=== PATIENT | female | born 1955 | race Caucasian/White ===

== ENCOUNTER 2017-07-05 23:13 | Emergency (ER) | payer OTHER ==
[~2017-07-05] VITALS: Ht 162.6 cm; Wt 113.6 kg
[~2017-07-05 23:13] MED LIST: AMLO2.5T29 PO; ASPI81TA39 PO; GEMF600T3 PO; GLIP10TA9 PO; IBUP-2076 PO; METF10004 PO
[2017-07-05 23:53] LABS: GLUCOSE,POINT OF CARE 217 MG/DL (70-110)
[2017-07-06] MEDS ORDERED: KETOROLAC TROMETHAMINE 30 MG/ML VIAL IM ONE (02:15)
[2017-07-06 02:49] VITALS: BP 123/77
== END 2017-07-06 02:50 | disposition home or self-care (01) ==
LOC: EMS 23:14
DX: G62.9 Polyneuropathy, unspecified (principal); E78.00 Pure hypercholesterolemia, unspecified; I10 Essential (primary) hypertension; E11.9 Type 2 diabetes mellitus without complications; Z79.82 Long term (current) use of aspirin; Z79.84 Long term (current) use of oral hypoglycemic drugs; Z79.899 Other long term (current) drug therapy
CPT/HCPCS: 73610; 82962; 96372; 99284; J1885

== ENCOUNTER 2018-03-08 09:37 | Emergency (ER) | payer OTHER ==
[~2018-03-08] VITALS: Ht 162.6 cm; Wt 145.4 kg
[~2018-03-08 09:37] MED LIST changes: +BENZ-51 PO; -GEMF600T3 PO; +GEMF600T5 PO; -IBUP-2076 PO; +METF-446 PO; -METF10004 PO; +OMEP20 PO; +PRED15SO12 PO
[2018-03-08 10:49] LABS: GLUCOSE,POINT OF CARE 381 MG/DL (70-110)
[2018-03-08 10:57] LABS: APPEARANCE,URINE CLEAR (CLEAR); BILIRUBIN,URINE NEGATIVE (NEGATIVE); GLUCOSE, URINE (UA) >=1000 mg/dL (NEGATIVE); KETONES,URINE NEGATIVE (NEGATIVE); LEUKOCYTE ESTERASE ,URINE NEGATIVE (NEGATIVE); NITRATE,URINE NEGATIVE (NEGATIVE); OCCULT BLOOD,URINE NEGATIVE (NEGATIVE); PROTEIN,URINE SEE CONFIRM (NEGATIVE); UROBILINOGEN,URINE 0.2 mg/dL (<=1.0)
[2018-03-08 11:08] LABS: BASOPHILS % (AUTO) 0.5 % (0.0-2.0); EOSINOPHILS % (AUTO) 1.9 % (1.0-6.0); HEMATOCRIT 39.9 % (36-46); HEMOGLOBIN 12.8 g/dL (12.0-16.0); LYMPHOCYTES # (AUTO) 2.4 K/uL (1.0-4.8); LYMPHOCYTES % (AUTO) 25.6 % (22.0-44.0); MEAN CORPUSCULAR HEMOGLOBIN 29.9 pg (26.0-34.0); MEAN CORPUSCULAR HGB CONC 32.1 G/dL (31.0-37.0); MEAN CORPUSCULAR VOLUME 93 fL (80-100); MONOCYTES # (AUTO) 0.8 K/uL (0.1-1.0); MONOCYTES % (AUTO) 8.4 % (2.0-9.0); NEUTROPHILS # (AUTO) 5.9 K/uL (1.8-7.7); NEUTROPHILS % (AUTO) 63.6 % (40.0-70.0); PLATELET COUNT (AUTO) 269 K/uL (150-450); RED BLOOD CELL COUNT(AUTO) 4.28 MIL/uL (4.00-5.20); RED CELL DISTRIBUTION WIDTH 19.9 % (11.5-14.5)
[2018-03-08 11:21] LABS: ALBUMIN 3.1 g/dL (3.4-5.0); BILIRUBIN,TOTAL 0.3 mg/dL (0.1-1.0); CALCIUM, TOTAL 8.8 mg/dL (8.8-10.5); POTASSIUM 5.2 mmol/L (3.5-5.1); TOTAL PROTEIN, SERUM 7.6 g/dL (6.4-8.2)
[2018-03-08] MEDS ORDERED: IOVERSOL 350 MG/ML 150 ML VIAL ONE (11:21)
[2018-03-08] MEDS ORDERED: SODIUM CHLORIDE 0.9% 100 ML ONE (11:21)
[2018-03-08 11:27] LABS: SULFOSALICYLIC ACID,URINE 2+ (Negative)
[2018-03-08 11:29] LABS: BACTERIA,URINE Rare /HPF (None Seen); RBC,URINE None Seen /HPF (0-2); SQUAMOUS EPITHELIAL CELL,UR Few /LPF (None Seen); WBC,URINE 0-2 /HPF (0-5)
[2018-03-08] MEDS ORDERED: SODIUM CHLORIDE 0.9% 1,000 ML IV ONE (11:30)
[2018-03-08] MEDS ORDERED: INSULIN REGULAR, HUMAN 100 UNITS/ML IVP ONE (11:30)
[2018-03-08 13:40] VITALS: BP 138/99
[2018-03-08 17:40] LABS: GLUCOSE,POINT OF CARE 189 MG/DL (70-110)
== END 2018-03-08 14:01 | disposition home or self-care (01) ==
LOC: EMS 09:38
DX: R60.0 Localized edema (principal); R10.9 Unspecified abdominal pain; I10 Essential (primary) hypertension; E11.9 Type 2 diabetes mellitus without complications; E78.00 Pure hypercholesterolemia, unspecified; J44.9 Chronic obstructive pulmonary disease, unspecified; Z79.82 Long term (current) use of aspirin; Z79.899 Other long term (current) drug therapy
CPT/HCPCS: 36415; 74176; 80053; 81001; 82962; 85025; 93971; 96361; 96374; 99284; J1815; J7030; J7050; Q9967; 51701; 82948

== ENCOUNTER 2018-08-28 18:35 | Inpatient (IN) | payer OTHER ==
[~2018-08-28] VITALS: Ht 162.6 cm; Wt 136.8 kg
[~2018-08-28 18:35] MED LIST changes: +ALBU8HFA IH; +CIP250 PO; +DOXY100C PO; +INSLAN SQ; +PARI1CAP11 PO; -PRED15SO12 PO; +PRED20 PO; +QUET25TA PO; +SODI650T PO
[2018-08-28 18:59] LABS: GLUCOSE,POINT OF CARE 283 MG/DL (70-110)
[2018-08-28] MEDS ORDERED: ALBUTEROL SULFATE 5 MG/ML 20 ML NEB SOLN [BULK] NEB ONE (19:00)
[2018-08-28] MEDS ORDERED: IPRATROPIUM BROMIDE 0.5 MG/2.5 ML NEB SOLUTION NEB ONE (19:00)
[2018-08-28] MEDS ORDERED: MethylPREDNISolone SOD SUCC 125 MG/2 ML VIAL IVP ONE (19:00)
[2018-08-28 19:54] LABS: BASOPHILS % (AUTO) 0.3 % (0.0-2.0); EOSINOPHILS % (AUTO) 1.5 % (1.0-6.0); HEMATOCRIT 38.3 % (36-46); LYMPHOCYTES # (AUTO) 2.4 K/uL (1.0-4.8); LYMPHOCYTES % (AUTO) 23.6 % (22.0-44.0); MEAN CORPUSCULAR HEMOGLOBIN 28.2 pg (26.0-34.0); MEAN CORPUSCULAR HGB CONC 31.4 G/dL (31.0-37.0); MEAN CORPUSCULAR VOLUME 90 fL (80-100); MONOCYTES # (AUTO) 0.9 K/uL (0.1-1.0); MONOCYTES % (AUTO) 8.4 % (2.0-9.0); NEUTROPHILS # (AUTO) 6.8 K/uL (1.8-7.7); NEUTROPHILS % (AUTO) 66.2 % (40.0-70.0); PLATELET COUNT (AUTO) 168 K/uL (150-450); RED BLOOD CELL COUNT(AUTO) 4.27 MIL/uL (4.00-5.20); RED CELL DISTRIBUTION WIDTH 19.2 % (11.5-14.5)
[2018-08-28 20:03] LABS: CREATININE 1.21 mg/dL (0.60-1.30); POTASSIUM 4.1 mmol/L (3.5-5.1)
[2018-08-28 20:09] LABS: ALBUMIN 2.6 g/dL (3.4-5.0); BILIRUBIN,TOTAL 0.6 mg/dL (0.1-1.0); TOTAL PROTEIN, SERUM 6.8 g/dL (6.4-8.2)
[2018-08-28] MEDS ORDERED: FUROSEMIDE 40 MG/4 ML VIAL IVP ONE (20:30)
[2018-08-28] MEDS ORDERED: ONDANSETRON HCL 4 MG/2 ML VIAL IVP PRN ×2 (20:45→22:00)
[2018-08-28] MEDS ORDERED: ACETAMINOPHEN 325 MG TABLET PO PRN ×2 (20:45→22:00)
[2018-08-28 20:54] LABS: SITE, BLOOD GAS RT RADIAL; SOURCE, BLOOD GAS ARTERIAL
[2018-08-28 20:55] LABS: ABG BASE EXCESS 0.1 mmol/L (-2.0-3.0); ABG PCO2 52 mmHg (35-45); ABG TOTAL HEMOGLOBIN 12.8 G/dL (12.0-18.0); TEMPERATURE, FAHRENHEIT, BG 98.6 FAHREN (96.0-98.6)
[2018-08-28 20:56] LABS: ABG CARBOXYHEMOGLOBIN 1.4 % (0.0-1.5); ABG OXYGEN CONTENT 16.2 mL/dL (15.0-23.0); O2 DEVICE,BLOOD GAS NON REBREATHER (ROOM AIR)
[2018-08-28] MEDS ORDERED: HYDROCODONE/ACETAMINOPHEN 5-325 MG TABLET PO PRN (22:00)
[2018-08-28] MEDS ORDERED: ALBUTEROL SULFATE 2.5 MG/0.5 ML NEB SOLUTION NEB PRN (22:00)
[2018-08-28] MEDS ORDERED: MAGNESIUM HYDROXIDE SUSPENSION 30 ML UDCUP PO PRN (22:00)
[2018-08-28] MEDS ORDERED: IPRATROPIUM BROMIDE 0.5 MG/2.5 ML NEB SOLUTION NEB PRN (22:00)
[2018-08-28] MEDS ORDERED: BISACODYL 10 MG RECTAL RECTAL SUPPOSITORY PR PRN (22:00)
[2018-08-28] MEDS ORDERED: BENZONATATE 100 MG CAPSULE PO PRN (22:00)
[2018-08-28] MEDS ORDERED: MORPHINE SULFATE 2 MG/ML SYRINGE IVP PRN (22:00)
[2018-08-28] MEDS ORDERED: ZOLPIDEM TARTRATE 5 MG TABLET PO PRN (22:00)
[2018-08-28] MEDS: AZITHROMYCIN 500 MG/NS 250 ML IV SCH (22:42)
[2018-08-28] MEDS ORDERED: IPRATROPIUM BROMIDE 0.5 MG/2.5 ML NEB SOLUTION NEB SCH (23:00)
[2018-08-28] MEDS ORDERED: ALBUTEROL SULFATE 2.5 MG/0.5 ML NEB SOLUTION NEB SCH (23:00)
[2018-08-29] VITALS (7 sets, daily range): BP systolic 100–133; BP diastolic 59–86
[2018-08-29] MEDS: CefTRIAXone 1 GM/DEXTROSE 50 ML IV SCH ×2 (00:03→23:38)
[2018-08-29] MEDS: MethylPREDNISolone SOD SUCC 125 MG/2 ML VIAL IVP SCH ×5 (00:14→23:40)
[2018-08-29] MEDS: HEPARIN SODIUM,PORCINE 5,000 UNITS/ML VIAL SQ SCH ×4 (00:14→23:40)
[2018-08-29 02:04] LABS: GLUCOSE,POINT OF CARE 481 MG/DL (70-110)
[2018-08-29] MEDS: IPRATROPIUM BROMIDE 0.5 MG/2.5 ML NEB SOLUTION NEB SCH ×4 (02:18→19:39)
[2018-08-29] MEDS: ALBUTEROL SULFATE 2.5 MG/0.5 ML NEB SOLUTION NEB SCH ×4 (02:19→19:39)
[2018-08-29 06:45] LABS: BASOPHILS % (AUTO) 0.2 % (0.0-2.0); EOSINOPHILS % (AUTO) 0 % (1.0-6.0); HEMATOCRIT 38.9 % (36-46); LYMPHOCYTES # (AUTO) 0.4 K/uL (1.0-4.8); LYMPHOCYTES % (AUTO) 4.3 % (22.0-44.0); MEAN CORPUSCULAR HEMOGLOBIN 28.4 pg (26.0-34.0); MEAN CORPUSCULAR VOLUME 92 fL (80-100); MONOCYTES # (AUTO) 0.2 K/uL (0.1-1.0); MONOCYTES % (AUTO) 1.6 % (2.0-9.0); NEUTROPHILS # (AUTO) 8.9 K/uL (1.8-7.7); PLATELET COUNT (AUTO) 171 K/uL (150-450); RED BLOOD CELL COUNT(AUTO) 4.24 MIL/uL (4.00-5.20); RED CELL DISTRIBUTION WIDTH 19.7 % (11.5-14.5)
[2018-08-29 06:46] LABS: NEUTROPHILS % (AUTO) 93.9 % (40.0-70.0)
[2018-08-29 07:01] LABS: CALCIUM, TOTAL 8.8 mg/dL (8.8-10.5); CREATININE 1.58 mg/dL (0.60-1.30); POTASSIUM 5.1 mmol/L (3.5-5.1)
[2018-08-29] MEDS: GlipiZIDE 10 MG TABLET PO SCH ×2 (07:13→17:37)
[2018-08-29] MEDS: GEMFIBROZIL 600 MG TABLET PO SCH ×2 (07:13→17:37)
[2018-08-29] MEDS ORDERED: INSULIN LISPRO 100 UNITS/ML SQ ONE ×4 (07:15→20:35)
[2018-08-29] MEDS ORDERED: DEXTROSE 50%-WATER 25 GM/50 ML SYRINGE IVP PRN (07:15)
[2018-08-29] MEDS: INSULIN LISPRO 100 UNITS/ML SQ PRN ×4 (07:41→20:54)
[2018-08-29] MEDS: GuaiFENesin SR 600 MG ER TABLET PO SCH ×2 (08:41→20:49)
[2018-08-29] MEDS: MetFORMIN HCL 500 MG TABLET PO SCH ×2 (08:41→18:04)
[2018-08-29] MEDS: PANTOPRAZOLE SODIUM 40 MG DR TABLET PO SCH (08:41)
[2018-08-29] MEDS: ASPIRIN 81 MG CHEWABLE TABLET PO SCH (08:41)
[2018-08-29] MEDS: BENZONATATE 100 MG CAPSULE PO SCH ×3 (08:42→20:49)
[2018-08-29] MEDS: AmLODIPine BESYLATE 2.5 MG TABLET PO SCH (08:42)
[2018-08-29] MEDS: DOCUSATE SODIUM 100 MG CAPSULE PO SCH ×2 (08:42→20:57)
[2018-08-29] MEDS ORDERED: INSULIN GLARGINE,HUM.REC.ANLOG 100 UNITS/ML SQ SCH ×3 (09:00→21:00)
[2018-08-29] MEDS: BUDESONIDE 0.5 MG/2 ML NEB SOLUTION NEB SCH ×2 (10:54→19:39)
[2018-08-29 20:30] LABS: GLUCOMETER DEV NAME(LOC) 5N.1; GLUCOSE,POINT OF CARE 537 MG/DL (70-110)
[2018-08-29 20:30] LABS: GLUCOMETER DEV NAME(LOC) 5N.1; GLUCOSE,POINT OF CARE 523 MG/DL (70-110)
[2018-08-29] MEDS ORDERED: SODIUM CHLORIDE 0.9% 500 ML IV ONE (21:35)
[2018-08-29] MEDS: AZITHROMYCIN 500 MG/NS 250 ML IV SCH (21:45)
[2018-08-29] MEDS: QUEtiapine FUMARATE 25 MG TABLET PO SCH (21:54)
[2018-08-30] MEDS: IPRATROPIUM BROMIDE 0.5 MG/2.5 ML NEB SOLUTION NEB SCH ×4 (02:00→20:51)
[2018-08-30] MEDS: ALBUTEROL SULFATE 2.5 MG/0.5 ML NEB SOLUTION NEB SCH ×4 (02:00→20:51)
[2018-08-30 02:34] LABS: GLUCOMETER DEV NAME(LOC) 5N.2; GLUCOSE,POINT OF CARE > 600 MG/DL (70-110)
[2018-08-30 02:34] LABS: GLUCOMETER DEV NAME(LOC) 5N.2; GLUCOSE,POINT OF CARE 506 MG/DL (70-110)
[2018-08-30 04:56] VITALS: BP 125/69
[2018-08-30] MEDS ORDERED: INSULIN LISPRO 100 UNITS/ML SQ ONE ×3 (05:45→12:00)
[2018-08-30] MEDS: INSULIN LISPRO 100 UNITS/ML SQ PRN ×4 (06:06→21:32)
[2018-08-30] MEDS: GEMFIBROZIL 600 MG TABLET PO SCH ×2 (06:06→16:55)
[2018-08-30] MEDS: GlipiZIDE 10 MG TABLET PO SCH ×2 (06:06→16:55)
[2018-08-30] MEDS: MethylPREDNISolone SOD SUCC 125 MG/2 ML VIAL IVP SCH ×4 (06:07→23:35)
[2018-08-30 06:36] LABS: BASOPHILS % (AUTO) 0.2 % (0.0-2.0); EOSINOPHILS % (AUTO) 0 % (1.0-6.0); HEMATOCRIT 37.8 % (36-46); HEMOGLOBIN 11.6 g/dL (12.0-16.0); LYMPHOCYTES # (AUTO) 0.8 K/uL (1.0-4.8); LYMPHOCYTES % (AUTO) 5.6 % (22.0-44.0); MEAN CORPUSCULAR HEMOGLOBIN 27.7 pg (26.0-34.0); MEAN CORPUSCULAR HGB CONC 30.6 G/dL (31.0-37.0); MEAN CORPUSCULAR VOLUME 90 fL (80-100); MONOCYTES # (AUTO) 0.6 K/uL (0.1-1.0); MONOCYTES % (AUTO) 3.9 % (2.0-9.0); NEUTROPHILS # (AUTO) 13.4 K/uL (1.8-7.7); PLATELET COUNT (AUTO) 217 K/uL (150-450); RED BLOOD CELL COUNT(AUTO) 4.18 MIL/uL (4.00-5.20); RED CELL DISTRIBUTION WIDTH 19.6 % (11.5-14.5)
[2018-08-30 06:39] LABS: NEUTROPHILS % (AUTO) 90.3 % (40.0-70.0)
[2018-08-30 07:01] LABS: CALCIUM, TOTAL 9.6 mg/dL (8.8-10.5); CREATININE 1.61 mg/dL (0.60-1.30)
[2018-08-30 07:45] VITALS: BP 146/75
[2018-08-30] MEDS: BUDESONIDE 0.5 MG/2 ML NEB SOLUTION NEB SCH ×3 (08:37→20:54)
[2018-08-30] MEDS: DOCUSATE SODIUM 100 MG CAPSULE PO SCH ×2 (09:00→21:00)
[2018-08-30] MEDS ORDERED: INSULIN GLARGINE,HUM.REC.ANLOG 100 UNITS/ML SQ SCH ×2 (09:00→21:00)
[2018-08-30] MEDS: HEPARIN SODIUM,PORCINE 5,000 UNITS/ML VIAL SQ SCH ×3 (09:07→23:48)
[2018-08-30] MEDS: MetFORMIN HCL 500 MG TABLET PO SCH ×2 (09:08→16:55)
[2018-08-30] MEDS: ASPIRIN 81 MG CHEWABLE TABLET PO SCH (09:08)
[2018-08-30] MEDS: PANTOPRAZOLE SODIUM 40 MG DR TABLET PO SCH (09:08)
[2018-08-30] MEDS: AmLODIPine BESYLATE 2.5 MG TABLET PO SCH (09:08)
[2018-08-30] MEDS: GuaiFENesin SR 600 MG ER TABLET PO SCH ×2 (09:08→21:26)
[2018-08-30] MEDS: BENZONATATE 100 MG CAPSULE PO SCH ×3 (09:08→21:26)
[2018-08-30] MEDS ORDERED: BENZONATATE 100 MG CAPSULE PO PRN (10:45)
[2018-08-30 11:05] VITALS: BP 119/85
[2018-08-30 12:44] LABS: GLUCOMETER DEV NAME(LOC) 5N.2; GLUCOSE,POINT OF CARE 507 MG/DL (70-110)
[2018-08-30 15:29] LABS: GLUCOMETER DEV NAME(LOC) 5N.1; GLUCOSE,POINT OF CARE 474 MG/DL (70-110)
[2018-08-30 15:43] VITALS: BP 105/58
[2018-08-30 19:24] LABS: GLUCOMETER DEV NAME(LOC) 5N.2; GLUCOSE,POINT OF CARE 268 MG/DL (70-110)
[2018-08-30 20:36] VITALS: BP 157/81
[2018-08-30 20:45] LABS: GLUCOMETER DEV NAME(LOC) 5S.2A; GLUCOSE,POINT OF CARE 493 MG/DL (70-110)
[2018-08-30] MEDS: QUEtiapine FUMARATE 25 MG TABLET PO SCH (21:26)
[2018-08-30] MEDS: AZITHROMYCIN 500 MG/NS 250 ML IV SCH (21:42)
[2018-08-30] MEDS: CefTRIAXone 1 GM/DEXTROSE 50 ML IV SCH (23:34)
[2018-08-30 23:59] VITALS: BP 118/65
[2018-08-31 01:29] LABS: GLUCOMETER DEV NAME(LOC) 5N.2; GLUCOSE,POINT OF CARE 396 MG/DL (70-110)
[2018-08-31] MEDS: IPRATROPIUM BROMIDE 0.5 MG/2.5 ML NEB SOLUTION NEB SCH ×4 (02:00→21:54)
[2018-08-31] MEDS: ALBUTEROL SULFATE 2.5 MG/0.5 ML NEB SOLUTION NEB SCH ×4 (02:00→21:54)
[2018-08-31] MEDS: MethylPREDNISolone SOD SUCC 125 MG/2 ML VIAL IVP SCH ×4 (05:27→23:20)
[2018-08-31] MEDS: GlipiZIDE 10 MG TABLET PO SCH ×2 (05:30→17:30)
[2018-08-31] MEDS: GEMFIBROZIL 600 MG TABLET PO SCH ×2 (05:30→17:30)
[2018-08-31] MEDS: INSULIN LISPRO 100 UNITS/ML SQ PRN ×4 (05:34→21:23)
[2018-08-31 05:39] VITALS: BP 133/71
[2018-08-31 07:16] LABS: BASOPHILS % (AUTO) 0.1 % (0.0-2.0); EOSINOPHILS % (AUTO) 0 % (1.0-6.0); HEMATOCRIT 37.9 % (36-46); HEMOGLOBIN 11.7 g/dL (12.0-16.0); LYMPHOCYTES # (AUTO) 0.7 K/uL (1.0-4.8); LYMPHOCYTES % (AUTO) 4.8 % (22.0-44.0); MEAN CORPUSCULAR HEMOGLOBIN 27.9 pg (26.0-34.0); MEAN CORPUSCULAR VOLUME 90 fL (80-100); MONOCYTES # (AUTO) 0.6 K/uL (0.1-1.0); MONOCYTES % (AUTO) 4.3 % (2.0-9.0); NEUTROPHILS # (AUTO) 13.2 K/uL (1.8-7.7); PLATELET COUNT (AUTO) 256 K/uL (150-450); RED BLOOD CELL COUNT(AUTO) 4.21 MIL/uL (4.00-5.20); RED CELL DISTRIBUTION WIDTH 19.9 % (11.5-14.5)
[2018-08-31 07:20] LABS: NEUTROPHILS % (AUTO) 90.8 % (40.0-70.0)
[2018-08-31 07:36] LABS: CALCIUM, TOTAL 9.8 mg/dL (8.8-10.5); CREATININE 1.52 mg/dL (0.60-1.30)
[2018-08-31] MEDS: MetFORMIN HCL 500 MG TABLET PO SCH (08:27)
[2018-08-31] MEDS: PANTOPRAZOLE SODIUM 40 MG DR TABLET PO SCH (08:27)
[2018-08-31] MEDS: AmLODIPine BESYLATE 2.5 MG TABLET PO SCH (08:27)
[2018-08-31] MEDS: ASPIRIN 81 MG CHEWABLE TABLET PO SCH (08:28)
[2018-08-31] MEDS: BENZONATATE 100 MG CAPSULE PO SCH ×3 (08:28→21:12)
[2018-08-31] MEDS: GuaiFENesin SR 600 MG ER TABLET PO SCH ×2 (08:28→21:13)
[2018-08-31] MEDS: DOCUSATE SODIUM 100 MG CAPSULE PO SCH ×2 (08:29→21:00)
[2018-08-31] MEDS: HEPARIN SODIUM,PORCINE 5,000 UNITS/ML VIAL SQ SCH ×3 (08:29→23:20)
[2018-08-31 08:36] VITALS: BP 133/73
[2018-08-31] MEDS: BUDESONIDE 0.5 MG/2 ML NEB SOLUTION NEB SCH ×4 (08:42→22:00)
[2018-08-31] MEDS ORDERED: INSULIN GLARGINE,HUM.REC.ANLOG 100 UNITS/ML SQ SCH ×2 (09:00→21:00)
[2018-08-31 09:19] LABS: GLUCOMETER DEV NAME(LOC) 5N.2; GLUCOSE,POINT OF CARE 307 MG/DL (70-110)
[2018-08-31 09:19] LABS: GLUCOMETER DEV NAME(LOC) 5N.1; GLUCOSE,POINT OF CARE 342 MG/DL (70-110)
[2018-08-31] MEDS ORDERED: INSULIN LISPRO 100 UNITS/ML SQ ONE ×2 (12:00→21:15)
[2018-08-31 12:20] LABS: GLUCOMETER DEV NAME(LOC) 5N.1; GLUCOSE,POINT OF CARE 446 MG/DL (70-110)
[2018-08-31 12:32] VITALS: BP 136/86
[2018-08-31 16:14] VITALS: BP 140/68
[2018-08-31 19:24] LABS: GLUCOMETER DEV NAME(LOC) 5N.1; GLUCOSE,POINT OF CARE 294 MG/DL (70-110)
[2018-08-31 19:44] VITALS: BP 136/72
[2018-08-31] MEDS: QUEtiapine FUMARATE 25 MG TABLET PO SCH (21:12)
[2018-08-31] MEDS: INSULIN GLARGINE,HUM.REC.ANLOG 100 UNITS/ML SQ SCH (21:22)
[2018-08-31] MEDS: AZITHROMYCIN 500 MG/NS 250 ML IV SCH (21:27)
[2018-08-31] MEDS: CefTRIAXone 1 GM/DEXTROSE 50 ML IV SCH (22:36)
[2018-09-01 00:03] VITALS: BP 116/61
[2018-09-01] MEDS: ALBUTEROL SULFATE 2.5 MG/0.5 ML NEB SOLUTION NEB SCH ×4 (02:15→20:07)
[2018-09-01] MEDS: IPRATROPIUM BROMIDE 0.5 MG/2.5 ML NEB SOLUTION NEB SCH ×4 (02:15→20:07)
[2018-09-01 05:29] VITALS: BP 153/84
[2018-09-01] MEDS: GlipiZIDE 10 MG TABLET PO SCH ×2 (06:15→16:57)
[2018-09-01] MEDS: GEMFIBROZIL 600 MG TABLET PO SCH ×2 (06:15→16:57)
[2018-09-01] MEDS: MethylPREDNISolone SOD SUCC 125 MG/2 ML VIAL IVP SCH ×3 (06:15→16:57)
[2018-09-01] MEDS: INSULIN LISPRO 100 UNITS/ML SQ PRN ×4 (06:35→21:40)
[2018-09-01 07:39] LABS: GLUCOMETER DEV NAME(LOC) 5N.2; GLUCOSE,POINT OF CARE 458 MG/DL (70-110)
[2018-09-01 07:40] LABS: GLUCOMETER DEV NAME(LOC) 5N.2; GLUCOSE,POINT OF CARE 369 MG/DL (70-110)
[2018-09-01 07:54] VITALS: BP 123/57
[2018-09-01 08:18] LABS: BASOPHILS % (AUTO) 0.3 % (0.0-2.0); EOSINOPHILS % (AUTO) 0 % (1.0-6.0); HEMATOCRIT 37.1 % (36-46); HEMOGLOBIN 11.7 g/dL (12.0-16.0); LYMPHOCYTES # (AUTO) 0.7 K/uL (1.0-4.8); LYMPHOCYTES % (AUTO) 6.4 % (22.0-44.0); MEAN CORPUSCULAR HEMOGLOBIN 28.3 pg (26.0-34.0); MEAN CORPUSCULAR HGB CONC 31.5 G/dL (31.0-37.0); MEAN CORPUSCULAR VOLUME 90 fL (80-100); MONOCYTES # (AUTO) 0.4 K/uL (0.1-1.0); MONOCYTES % (AUTO) 3.8 % (2.0-9.0); NEUTROPHILS # (AUTO) 9.3 K/uL (1.8-7.7); PLATELET COUNT (AUTO) 231 K/uL (150-450); RED BLOOD CELL COUNT(AUTO) 4.13 MIL/uL (4.00-5.20); RED CELL DISTRIBUTION WIDTH 19.7 % (11.5-14.5)
[2018-09-01 08:21] LABS: NEUTROPHILS % (AUTO) 89.5 % (40.0-70.0)
[2018-09-01 08:24] LABS: CALCIUM, TOTAL 9.7 mg/dL (8.8-10.5); CREATININE 1.47 mg/dL (0.60-1.30); POTASSIUM 5.2 mmol/L (3.5-5.1)
[2018-09-01] MEDS: DOCUSATE SODIUM 100 MG CAPSULE PO SCH ×2 (08:27→21:00)
[2018-09-01] MEDS: GuaiFENesin SR 600 MG ER TABLET PO SCH ×2 (08:27→21:24)
[2018-09-01] MEDS: AmLODIPine BESYLATE 2.5 MG TABLET PO SCH (08:27)
[2018-09-01] MEDS: PANTOPRAZOLE SODIUM 40 MG DR TABLET PO SCH (08:27)
[2018-09-01] MEDS: BENZONATATE 100 MG CAPSULE PO SCH ×3 (08:27→21:25)
[2018-09-01] MEDS: ASPIRIN 81 MG CHEWABLE TABLET PO SCH (08:28)
[2018-09-01] MEDS: HEPARIN SODIUM,PORCINE 5,000 UNITS/ML VIAL SQ SCH ×2 (08:28→16:57)
[2018-09-01] MEDS: INSULIN GLARGINE,HUM.REC.ANLOG 100 UNITS/ML SQ SCH ×2 (08:28→21:39)
[2018-09-01 08:34] LABS: GLUCOMETER DEV NAME(LOC) 5N.2; GLUCOSE,POINT OF CARE 310 MG/DL (70-110)
[2018-09-01] MEDS: BUDESONIDE 0.5 MG/2 ML NEB SOLUTION NEB SCH ×3 (08:53→20:07)
[2018-09-01 11:28] VITALS: BP 106/53
[2018-09-01 15:55] VITALS: BP 127/57
[2018-09-01 16:14] LABS: GLUCOMETER DEV NAME(LOC) 5N.1; GLUCOSE,POINT OF CARE 315 MG/DL (70-110)
[2018-09-01 20:11] VITALS: BP 151/89
[2018-09-01] MEDS: QUEtiapine FUMARATE 25 MG TABLET PO SCH (21:25)
[2018-09-01] MEDS: AZITHROMYCIN 500 MG/NS 250 ML IV SCH (22:50)
[2018-09-02] MEDS: MethylPREDNISolone SOD SUCC 125 MG/2 ML VIAL IVP SCH ×4 (00:05→17:20)
[2018-09-02] MEDS: CefTRIAXone 1 GM/DEXTROSE 50 ML IV SCH (00:05)
[2018-09-02] MEDS: HEPARIN SODIUM,PORCINE 5,000 UNITS/ML VIAL SQ SCH ×3 (00:05→15:51)
[2018-09-02 00:22] VITALS: BP 137/75
[2018-09-02] MEDS: ALBUTEROL SULFATE 2.5 MG/0.5 ML NEB SOLUTION NEB SCH ×3 (02:26→12:47)
[2018-09-02] MEDS: IPRATROPIUM BROMIDE 0.5 MG/2.5 ML NEB SOLUTION NEB SCH ×3 (02:26→12:47)
[2018-09-02 04:15] VITALS: BP 131/63
[2018-09-02] MEDS: GlipiZIDE 10 MG TABLET PO SCH ×2 (06:01→17:21)
[2018-09-02] MEDS: GEMFIBROZIL 600 MG TABLET PO SCH ×2 (06:01→17:21)
[2018-09-02] MEDS: INSULIN LISPRO 100 UNITS/ML SQ PRN ×3 (06:02→17:22)
[2018-09-02 07:48] VITALS: BP 119/67
[2018-09-02] MEDS: BUDESONIDE 0.5 MG/2 ML NEB SOLUTION NEB SCH ×2 (08:00→12:47)
[2018-09-02] MEDS: ASPIRIN 81 MG CHEWABLE TABLET PO SCH (08:28)
[2018-09-02] MEDS: AmLODIPine BESYLATE 2.5 MG TABLET PO SCH (08:28)
[2018-09-02] MEDS: BENZONATATE 100 MG CAPSULE PO SCH ×2 (08:29→15:50)
[2018-09-02] MEDS: GuaiFENesin SR 600 MG ER TABLET PO SCH (08:29)
[2018-09-02] MEDS: DOCUSATE SODIUM 100 MG CAPSULE PO SCH (08:30)
[2018-09-02] MEDS: PANTOPRAZOLE SODIUM 40 MG DR TABLET PO SCH (08:51)
[2018-09-02] MEDS: INSULIN GLARGINE,HUM.REC.ANLOG 100 UNITS/ML SQ SCH (08:52)
[2018-09-02] MEDS ORDERED: PRED20 PO (10:38)
[2018-09-02 11:04] LABS: GLUCOMETER DEV NAME(LOC) 5N.2; GLUCOSE,POINT OF CARE 265 MG/DL (70-110)
[2018-09-02 11:05] LABS: GLUCOMETER DEV NAME(LOC) 5N.2; GLUCOSE,POINT OF CARE 426 MG/DL (70-110)
[2018-09-02 11:40] VITALS: BP 148/76
[2018-09-02 15:15] VITALS: BP 117/65
[2018-09-02 17:20] LABS: GLUCOMETER DEV NAME(LOC) 5N.1; GLUCOSE,POINT OF CARE 289 MG/DL (70-110)
[2018-09-02 17:20] LABS: GLUCOMETER DEV NAME(LOC) 5N.1; GLUCOSE,POINT OF CARE 342 MG/DL (70-110)
[2018-09-03 20:35] LABS: GLUCOMETER DEV NAME(LOC) 5N.2; GLUCOSE,POINT OF CARE 307 MG/DL (70-110)
== END 2018-09-02 18:30 | disposition home or self-care (01) | DRG 140 ==
LOC: EMS 18:35 → 5S 08-29 02:50
PROVIDERS: ADMIT Hospitalist; ATTEND Hospitalist
PROC: 5A09357 Assistance with Respiratory Ventilation, Less than 24 Consecutive Hours, Continuous Positive Airway Pressure (ICD-10-PCS; principal; 2018-08-29)
PROC: 5A09357 Assistance with Respiratory Ventilation, Less than 24 Consecutive Hours, Continuous Positive Airway Pressure (ICD-10-PCS; 2018-09-01)
PROC: 5A09357 Assistance with Respiratory Ventilation, Less than 24 Consecutive Hours, Continuous Positive Airway Pressure (ICD-10-PCS; 2018-09-02)
DX: J44.1 Chronic obstructive pulmonary disease with (acute) exacerbation (principal); J96.20 Acute and chronic respiratory failure, unspecified whether with hypoxia or hypercapnia; E11.22 Type 2 diabetes mellitus with diabetic chronic kidney disease; I50.9 Heart failure, unspecified; I13.0 Hypertensive heart and chronic kidney disease with heart failure and stage 1 through stage 4 chronic kidney disease, or unspecified chronic kidney disease; E66.9 Obesity, unspecified; N18.9 Chronic kidney disease, unspecified; E78.00 Pure hypercholesterolemia, unspecified; E66.01 Morbid (severe) obesity due to excess calories; E11.65 Type 2 diabetes mellitus with hyperglycemia; Z68.43 Body mass index [BMI] 50.0-59.9, adult; G47.33 Obstructive sleep apnea (adult) (pediatric); J96.21 Acute and chronic respiratory failure with hypoxia; E87.1 Hypo-osmolality and hyponatremia; E78.5 Hyperlipidemia, unspecified; Z99.81 Dependence on supplemental oxygen
CPT/HCPCS: 36600; 82805; 93005; 93971; 94640; 94644; 94660; 96365; 96375; 99291; G0378; J0456; J0696; J1644; J1815; J1940; J2930; J7040

== ENCOUNTER 2023-11-04 14:15 | Inpatient (IN) | payer MEDICARE, OTHER ==
[~2023-11-04] VITALS: Ht 165.1 cm; Wt 113.6 kg
[~2023-11-04 14:15] MED LIST changes: -ALBU8HFA IH; -ASPI81TA39 PO; -BENZ-51 PO; -CIP250 PO; -DOXY100C PO; +FURO40TA6 PO; -GEMF600T5 PO; -GLIP10TA9 PO; +LEVO-72 PO; +LOSA-382 PO; -METF-446 PO; -OMEP20 PO; +PANT-31 PO; -PARI1CAP11 PO; -PRED20 PO; -QUET25TA PO; +ROSU20TA98 PO; -SODI650T PO
[2023-11-04] MEDS ORDERED: CALC-1275 PO (14:28)
[2023-11-04] MEDS ORDERED: BUDE0.2517 NEB (14:28)
[2023-11-04] MEDS ORDERED: POTA-189 PO (14:28)
[2023-11-04] MEDS ORDERED: INSU100V SQ (14:28)
[2023-11-04] MEDS ORDERED: IPRA3AMP23 IH (14:28)
[2023-11-04] MEDS ORDERED: EMPA10TA3 PO (14:28)
[2023-11-04] MEDS ORDERED: INSU3INS3 SQ (14:28)
[2023-11-04 15:00] VITALS: PULSE 86; RESP 20; RESP 26; O2SAT 96
[2023-11-04 15:04] LABS: BASOPHILS % (AUTO) 0.5 % (0.0-2.0); EOSINOPHILS % (AUTO) 2.3 % (1.0-6.0); HEMATOCRIT 37.3 % (36-46); HEMOGLOBIN 11.2 g/dL (12.0-16.0); LYMPHOCYTES # (AUTO) 1.4 K/uL (1.0-4.8); LYMPHOCYTES % (AUTO) 12.3 % (22.0-44.0); MEAN CORPUSCULAR HEMOGLOBIN 27.2 pg (26.0-34.0); MEAN CORPUSCULAR HGB CONC 30.1 G/dL (31.0-37.0); MEAN CORPUSCULAR VOLUME 90 fL (80-100); MONOCYTES # (AUTO) 1.2 K/uL (0.1-1.0); MONOCYTES % (AUTO) 11.2 % (2.0-9.0); NEUTROPHILS # (AUTO) 8.2 K/uL (1.8-7.7); NEUTROPHILS % (AUTO) 73.7 % (40.0-70.0); PLATELET COUNT (AUTO) 151 K/uL (150-450); RED BLOOD CELL COUNT(AUTO) 4.14 MIL/uL (4.00-5.20); RED CELL DISTRIBUTION WIDTH 16.9 % (11.5-14.5); WHITE BLOOD COUNT (AUTO) 11.1 K/uL (4.5-11.0)
[2023-11-04 15:14] LABS: CALCIUM, TOTAL 7.4 mg/dL (8.8-10.5); CREATININE 2.15 mg/dL (0.60-1.30); POTASSIUM 4.3 mmol/L (3.5-5.1)
[2023-11-04 15:24] LABS: BILIRUBIN,TOTAL 0.4 mg/dL (0.1-1.0); TOTAL PROTEIN, SERUM 7.5 g/dL (6.4-8.2)
[2023-11-04 15:26] LABS: TROPONIN I-HIGH SENSITIVITY 8 ng/L (<51)
[2023-11-04 15:40] LABS: COVID AG,FIA SOURCE NASAL SWAB
[2023-11-04] MEDS: FUROSEMIDE 40 MG/4 ML VIAL IVP ONE (15:44)
[2023-11-04 15:57] LABS: INFLUENZA TYPE A NEGATIVE FOR TYPE A (NEGATIVE); INFLUENZA TYPE B NEGATIVE FOR TYPE B (NEGATIVE); SARS-COV2 (COVID) ANTIGEN,FIA Negative (Negative)
[2023-11-04 17:03] LABS: ABG BASE EXCESS 5.3 mmol/L (-2.0-3.0); ABG CARBOXYHEMOGLOBIN 0.9 % (0.5-1.5); ABG HCO3 26.7 mmol/L (21.0-28.0); ABG METHEMOGLOBIN 0.9 % (0.0-1.5); ABG OXYGEN CONTENT 11.4 mL/dL (15.0-23.0); ABG OXYHEMOGLOBIN 64.9 % (94.0-98.0); ABG PCO2 73 mmHg (32.0-45.0); ABG PH 7.266 (7.350-7.450); ABG TOTAL HEMOGLOBIN 12.5 G/dL (12.0-16.0); SOURCE, BLOOD GAS ARTERIAL; TEMPERATURE, FAHRENHEIT, BG 98.3 FAHREN (96.0-98.6)
[2023-11-04 17:05] LABS: ABG OXYGEN SATURATION 66.1 % (94.0-98.0); ALLEN TEST, BLOOD GAS POS; PO2, ARTERIAL BG 32.2 mmHg (83.0-108.0); SITE, BLOOD GAS RT BRACHIAL
[2023-11-04 17:06] LABS: O2 DEVICE,BLOOD GAS BIPAP (ROOM AIR)
[2023-11-04] MEDS ORDERED: ONDANSETRON HCL 4 MG/2 ML VIAL IVP PRN (17:15)
[2023-11-04] MEDS: MethylPREDNISolone SOD SUCC 125 MG/2 ML VIAL IVP SCH (18:08)
[2023-11-04 18:10] LABS: LACTIC ACID 1.1 mmol/L (0.4-2.0)
[2023-11-04] MEDS: CefTRIAXone SODIUM 2 GM in DEXTROSE 5%-WATER 50 ML IV SCH (19:43)
[2023-11-04] MEDS: DOXYCYCLINE HYCLATE 100 MG in DEXTROSE 5%-WATER 100 ML IV SCH (19:44)
[2023-11-04 20:30] VITALS: PULSE 88; RESP 20; O2SAT 92
[2023-11-04] MEDS ORDERED: INSULIN LISPRO 100 UNITS/ML SQ PRN (20:30)
[2023-11-04] MEDS ORDERED: DEXTROSE 50%-WATER 25 GM/50 ML SYRINGE IVP PRN (20:30)
[2023-11-04 21:07] LABS: ABG BASE EXCESS 3.7 mmol/L (-2.0-3.0); ABG CARBOXYHEMOGLOBIN 0.6 % (0.5-1.5); ABG HCO3 25.6 mmol/L (21.0-28.0); ABG METHEMOGLOBIN 0.8 % (0.0-1.5); ABG OXYGEN CONTENT 16.2 mL/dL (15.0-23.0); ABG OXYHEMOGLOBIN 88.7 % (94.0-98.0); ABG PCO2 80 mmHg (32.0-45.0); PO2, ARTERIAL BG 59.3 mmHg (83.0-108.0); SOURCE, BLOOD GAS ARTERIAL; TEMPERATURE, FAHRENHEIT, BG 98.3 FAHREN (96.0-98.6)
[2023-11-04 21:10] LABS: GLUCOMETER DEV NAME(LOC) ER.7; GLUCOSE,POINT OF CARE 130 MG/DL (70-110)
[2023-11-04] MEDS: INSULIN GLARGINE,HUM.REC.ANLOG 100 UNITS/ML SQ SCH (21:18)
[2023-11-04] MEDS: ROSUVASTATIN CALCIUM 20 MG TABLET PO SCH (21:18)
[2023-11-04 21:54] LABS: ABG A-A DIFF O2 163.4 mmHg (10-20.0); ABG PH 7.213 (7.350-7.450); ALLEN TEST, BLOOD GAS Positive; SITE, BLOOD GAS LFT RADIAL
[2023-11-04 21:55] LABS: O2 DEVICE,BLOOD GAS NASAL CANNULA (ROOM AIR)
[2023-11-04 23:00] VITALS: PULSE 86; RESP 25; O2SAT 96
[2023-11-04] MEDS: HEPARIN SODIUM,PORCINE 5,000 UNITS/ML VIAL SQ SCH (23:09)
[2023-11-05] VITALS (10 sets, daily range): PULSE 52–136; RESP 26–30; O2SAT 88–94
[2023-11-05] MEDS: LORazepam 2 MG/ML VIAL IVP ONE (00:32)
[2023-11-05 01:22] LABS: ABG CARBOXYHEMOGLOBIN 0.8 % (0.5-1.5); ABG HCO3 24.8 mmol/L (21.0-28.0); ABG METHEMOGLOBIN 0.1 % (0.0-1.5); ABG OXYGEN CONTENT 17.2 mL/dL (15.0-23.0); ABG OXYGEN SATURATION 93.1 % (94.0-98.0); ABG OXYHEMOGLOBIN 92.3 % (94.0-98.0); ABG PCO2 86 mmHg (32.0-45.0); ABG TOTAL HEMOGLOBIN 13.2 G/dL (12.0-16.0); PO2, ARTERIAL BG 70.8 mmHg (83.0-108.0); SOURCE, BLOOD GAS ARTERIAL
[2023-11-05 01:25] LABS: ABG PH 7.176 (7.350-7.450); ALLEN TEST, BLOOD GAS Positive; SITE, BLOOD GAS LFT RADIAL
[2023-11-05 01:26] LABS: TEMPERATURE, FAHRENHEIT, BG 98.6 FAHREN (96.0-98.6)
[2023-11-05] MEDS ORDERED: ETOMIDATE 2 MG/ML 10 ML VIAL ONE (01:38)
[2023-11-05] MEDS ORDERED: ROCURONIUM BROMIDE 10 MG/ML 5 ML VIAL ONE (01:39)
[2023-11-05 02:47] LABS: APPEARANCE,URINE CLEAR (CLEAR); BILIRUBIN,URINE NEGATIVE (NEGATIVE); COLOR,URINE COLORLESS (YELLOW); GLUCOSE, URINE (UA) >=1000 mg/dL (NEGATIVE); KETONES,URINE NEGATIVE (NEGATIVE); LEUKOCYTE ESTERASE ,URINE NEGATIVE (NEGATIVE); NITRATE,URINE NEGATIVE (NEGATIVE); OCCULT BLOOD,URINE SMALL (NEGATIVE); PH,URINE 5.5 (5.0-8.0); PH,URINE DRUG SCREEN 5.5 (5.0-8.0); PROTEIN,URINE 30-70 mg/dL (NEGATIVE); UROBILINOGEN,URINE <=1.0 mg/dL (<=1.0)
[2023-11-05 02:57] LABS: ALCOHOL, URINE DRUG SCREEN NEGATIVE (NEGATIVE); AMPHET/METH SCREEN,URINE NEGATIVE (NEGATIVE); BARBITURATE SCREEN, URINE NEGATIVE (NEGATIVE); BENZODIAZEPINES SCREEN,URINE NEGATIVE (NEGATIVE); CANNABINOID SCREEN,URINE NEGATIVE (NEGATIVE); COCAINE SCREEN,URINE NEGATIVE (NEGATIVE); METHADONE SCREEN, URINE NEGATIVE (NEGATIVE); OPIATE SCREEN,URINE NEGATIVE (NEGATIVE); PHENCYCLIDINE SCREEN,URINE NEGATIVE (NEGATIVE)
[2023-11-05] MEDS: PROPOFOL 1000 MG/ISO-OSM 100 ML IV PRN ×2 (03:12→09:24)
[2023-11-05 03:16] LABS: BACTERIA,URINE Few /HPF (None Seen); RBC,URINE 0-2 /HPF (0-2); SQUAMOUS EPITHELIAL CELL,UR Rare /LPF (None Seen); WBC,URINE 0-2 /HPF (0-5)
[2023-11-05] MEDS: MIDAZOLAM HCL 100 MG in SODIUM CHLORIDE 0.9% 180 ML IV PRN (04:06)
[2023-11-05] MEDS: ETOMIDATE 2 MG/ML 10 ML VIAL IVP ONE (04:06)
[2023-11-05] MEDS: ROCURONIUM BROMIDE 10 MG/ML 5 ML VIAL IVP ONE (04:08)
[2023-11-05 04:51] LABS: ABG BASE EXCESS 2.6 mmol/L (-2.0-3.0); ABG CARBOXYHEMOGLOBIN 0.4 % (0.5-1.5); ABG HCO3 26.1 mmol/L (21.0-28.0); ABG METHEMOGLOBIN 0.8 % (0.0-1.5); ABG OXYGEN CONTENT 16.2 mL/dL (15.0-23.0); ABG OXYGEN SATURATION 93.1 % (94.0-98.0); ABG PCO2 48 mmHg (32.0-45.0); ABG PH 7.381 (7.350-7.450); ABG TOTAL HEMOGLOBIN 12.5 G/dL (12.0-16.0); PO2, ARTERIAL BG 61.3 mmHg (83.0-108.0); SOURCE, BLOOD GAS ARTERIAL; TEMPERATURE, FAHRENHEIT, BG 98.6 FAHREN (96.0-98.6)
[2023-11-05 04:53] LABS: ALLEN TEST, BLOOD GAS Positive; O2 DEVICE,BLOOD GAS VENT (ROOM AIR); PEEP,BG 5 cm H2O; SITE, BLOOD GAS LFT RADIAL; VT, ABG 430 ml
[2023-11-05 07:04] LABS: BASOPHILS % (AUTO) 0.1 % (0.0-2.0); EOSINOPHILS % (AUTO) 0 % (1.0-6.0); HEMATOCRIT 38.3 % (36-46); HEMOGLOBIN 11.8 g/dL (12.0-16.0); LYMPHOCYTES # (AUTO) 0.4 K/uL (1.0-4.8); LYMPHOCYTES % (AUTO) 5.4 % (22.0-44.0); MEAN CORPUSCULAR HEMOGLOBIN 27.5 pg (26.0-34.0); MEAN CORPUSCULAR HGB CONC 30.9 G/dL (31.0-37.0); MEAN CORPUSCULAR VOLUME 89 fL (80-100); MONOCYTES # (AUTO) 0.1 K/uL (0.1-1.0); MONOCYTES % (AUTO) 1.1 % (2.0-9.0); NEUTROPHILS # (AUTO) 7.6 K/uL (1.8-7.7); PLATELET COUNT (AUTO) 170 K/uL (150-450); RED CELL DISTRIBUTION WIDTH 17.1 % (11.5-14.5); WHITE BLOOD COUNT (AUTO) 8.1 K/uL (4.5-11.0)
[2023-11-05 07:12] LABS: NEUTROPHILS % (AUTO) 93.4 % (40.0-70.0)
[2023-11-05 07:22] LABS: CALCIUM, TOTAL 7.9 mg/dL (8.8-10.5); CREATININE 2.22 mg/dL (0.60-1.30); MAGNESIUM 1.3 mg/dL (1.80-2.40); POTASSIUM 4.9 mmol/L (3.5-5.1)
[2023-11-05] MEDS ORDERED: DEXTROSE 50%-WATER 25 GM/50 ML SYRINGE IVP PRN (08:00)
[2023-11-05] MEDS: AmLODIPine BESYLATE 2.5 MG TABLET PO SCH (09:00)
[2023-11-05] MEDS: CALCIUM OYSTER SHELL 250 MG-VIT D3 125 UNITS[3.125MCG] TABLET PO SCH (09:00)
[2023-11-05] MEDS ORDERED: EMPAGLIFLOZIN 10 MG TABLET PO SCH (09:00)
[2023-11-05] MEDS: PANTOPRAZOLE SODIUM 40 MG DR TABLET PO SCH (09:00)
[2023-11-05] MEDS: INSULIN REGULAR, HUMAN 100 UNITS in SODIUM CHLORIDE 0.9% 99 ML IV PRN (09:04)
[2023-11-05] MEDS: FUROSEMIDE 40 MG/4 ML VIAL IVP SCH (09:07)
[2023-11-05] MEDS: DEXTROSE 5%-WATER 1,000 ML IV SCH (09:31)
[2023-11-05 12:41] LABS: GLUCOMETER DEV NAME(LOC) ER.7; GLUCOSE,POINT OF CARE 398 MG/DL (70-110)
[2023-11-05 12:41] LABS: GLUCOMETER DEV NAME(LOC) ER.7; GLUCOSE,POINT OF CARE 402 MG/DL (70-110)
[2023-11-05] MEDS ORDERED: TRAZ-257 PO (13:00)
[2023-11-05] MEDS ORDERED: SEMA0.258 SQ (13:00)
[2023-11-05 13:35] LABS: GLUCOMETER DEV NAME(LOC) ER.7; GLUCOSE,POINT OF CARE 374 MG/DL (70-110)
[2023-11-05 14:36] LABS: GLUCOMETER DEV NAME(LOC) ER.7; GLUCOSE,POINT OF CARE 362 MG/DL (70-110)
[2023-11-05 16:00] LABS: GLUCOMETER DEV NAME(LOC) ER.7; GLUCOSE,POINT OF CARE 338 MG/DL (70-110)
[2023-11-05 16:35] LABS: GLUCOMETER DEV NAME(LOC) ER.7; GLUCOSE,POINT OF CARE 332 MG/DL (70-110)
[2023-11-05] MEDS: BUMETANIDE 0.25 MG/ML 4 ML VIAL IVP SCH (17:18)
[2023-11-05 20:50] LABS: GLUCOMETER DEV NAME(LOC) ER.7; GLUCOSE,POINT OF CARE 347 MG/DL (70-110)
[2023-11-05 20:50] LABS: GLUCOMETER DEV NAME(LOC) ER.7; GLUCOSE,POINT OF CARE 314 MG/DL (70-110)
[2023-11-05 20:50] LABS: GLUCOMETER DEV NAME(LOC) ER.7; GLUCOSE,POINT OF CARE 339 MG/DL (70-110)
[2023-11-05] MEDS: VANCOMYCIN 1.25 GM/WATER(PEG) 250 ML IV ONE (22:24)
[2023-11-05 22:51] LABS: GLUCOMETER DEV NAME(LOC) ER.7; GLUCOSE,POINT OF CARE 292 MG/DL (70-110)
[2023-11-05 23:42] LABS: ABG CARBOXYHEMOGLOBIN 0.6 % (0.5-1.5); ABG HCO3 27.9 mmol/L (21.0-28.0); ABG METHEMOGLOBIN 0.7 % (0.0-1.5); ABG OXYGEN CONTENT 15.2 mL/dL (15.0-23.0); ABG OXYHEMOGLOBIN 82.9 % (94.0-98.0); ABG PCO2 47 mmHg (32.0-45.0); ABG PH 7.415 (7.350-7.450); ABG TOTAL HEMOGLOBIN 13.1 G/dL (12.0-16.0); SOURCE, BLOOD GAS ARTERIAL; TEMPERATURE, FAHRENHEIT, BG 98.6 FAHREN (96.0-98.6)
[2023-11-05 23:43] LABS: ALLEN TEST, BLOOD GAS Positive; PO2, ARTERIAL BG 47.9 mmHg (83.0-108.0); SITE, BLOOD GAS RT RADIAL
[2023-11-05 23:44] LABS: O2 DEVICE,BLOOD GAS VENTILATOR (ROOM AIR); PEEP,BG 8 cm H2O; VT, ABG 430 ml
[2023-11-05 23:47] LABS: CALCIUM, TOTAL 8.6 mg/dL (8.8-10.5); CREATININE 2.1 mg/dL (0.60-1.30); POTASSIUM 4.3 mmol/L (3.5-5.1)
[2023-11-06] VITALS (8 sets, daily range): PULSE 51–95; RESP 26–27; O2SAT 85–99
[2023-11-06 01:35] LABS: GLUCOMETER DEV NAME(LOC) ER.7; GLUCOSE,POINT OF CARE 273 MG/DL (70-110)
[2023-11-06 01:35] LABS: GLUCOMETER DEV NAME(LOC) ER.7; GLUCOSE,POINT OF CARE 269 MG/DL (70-110)
[2023-11-06] MEDS ORDERED: MAA ALBUMIN AGGREGATED TC99M/UD<10MCL ISOTOPE 1 EA INJ INJ ONE (03:15)
[2023-11-06 04:46] LABS: GLUCOMETER DEV NAME(LOC) ER.7; GLUCOSE,POINT OF CARE 261 MG/DL (70-110)
[2023-11-06 04:46] LABS: GLUCOMETER DEV NAME(LOC) ER.7; GLUCOSE,POINT OF CARE 281 MG/DL (70-110)
[2023-11-06 05:45] LABS: GLUCOMETER DEV NAME(LOC) ER.7; GLUCOSE,POINT OF CARE 255 MG/DL (70-110)
[2023-11-06 06:07] LABS: CALCIUM, TOTAL 8.5 mg/dL (8.8-10.5); CREATININE 2.11 mg/dL (0.60-1.30); POTASSIUM 3.9 mmol/L (3.5-5.1)
[2023-11-06 06:55] LABS: GLUCOMETER DEV NAME(LOC) ER.7; GLUCOSE,POINT OF CARE 263 MG/DL (70-110)
[2023-11-06 07:03] LABS: MEAN CORPUSCULAR HEMOGLOBIN 26.9 pg (26.0-34.0); MEAN CORPUSCULAR HGB CONC 30.8 G/dL (31.0-37.0); MEAN CORPUSCULAR VOLUME 87 fL (80-100); PLATELET COUNT (AUTO) 206 K/uL (150-450); RED BLOOD CELL COUNT(AUTO) 4.46 MIL/uL (4.00-5.20); RED CELL DISTRIBUTION WIDTH 16.8 % (11.5-14.5)
[2023-11-06 07:39] LABS: BAND NEUTROPHILS % (MANUAL) 2 % (0-5); EOSINOPHILS % (MANUAL) 2 % (1-6); LYMPHOCYTES % (MANUAL) 7 % (22-44); MONOCYTES % (MANUAL) 8 % (2-9); RBC MORPHOLOGY COMMENT NORMAL RBC MORPH; SEGMENTED NEUTROPHILS % 81 % (40-70); TOTAL CELLS COUNTED 100
[2023-11-06] MEDS: VANCOMYCIN 1GM/WATER(PEG/NADA) 200 ML IV SCH (07:55)
[2023-11-06] MEDS: CHLORHEXIDINE GLUCONATE 0.12% 15 ML UDCUP ORAL RINSE MM SCH (09:00)
[2023-11-06] MEDS: BUMETANIDE 0.25 MG/ML 4 ML VIAL IVP SCH (09:00)
[2023-11-06 09:41] LABS: GLUCOMETER DEV NAME(LOC) ER.7; GLUCOSE,POINT OF CARE 246 MG/DL (70-110)
[2023-11-06 10:26] LABS: GLUCOMETER DEV NAME(LOC) ER.7; GLUCOSE,POINT OF CARE 230 MG/DL (70-110)
[2023-11-06] MEDS ORDERED: SODIUM CHLORIDE 0.9% 500 ML IV ONE (10:29)
[2023-11-06 14:10] LABS: ABG BASE EXCESS 2.6 mmol/L (-2.0-3.0); ABG CARBOXYHEMOGLOBIN 0.6 % (0.5-1.5); ABG HCO3 26.1 mmol/L (21.0-28.0); ABG METHEMOGLOBIN 0.3 % (0.0-1.5); ABG OXYGEN CONTENT 14.4 mL/dL (15.0-23.0); ABG OXYHEMOGLOBIN 78.8 % (94.0-98.0); ABG PCO2 41 mmHg (32.0-45.0); ABG PH 7.435 (7.350-7.450); SOURCE, BLOOD GAS ARTERIAL; TEMPERATURE, FAHRENHEIT, BG 97.3 FAHREN (96.0-98.6)
[2023-11-06 14:12] LABS: ABG A-A DIFF O2 631.4 mmHg (10-20.0); ABG OXYGEN SATURATION 79.5 % (94.0-98.0); O2 DEVICE,BLOOD GAS VENTILATOR (ROOM AIR); PEEP,BG 10 cm H2O; PO2, ARTERIAL BG 42.5 mmHg (83.0-108.0); SITE, BLOOD GAS ARTERIAL LINE; VT, ABG 430 ml
[2023-11-06] MEDS ORDERED: CISATRACURIUM BESYLATE 100 MG in DEXTROSE 5%-WATER 240 ML IV PRN (15:00)
[2023-11-06] MEDS ORDERED: NOREPINEPHRINE 8 MG/0.9 % NACL 250 ML IV ONE (15:31)
[2023-11-06] MEDS: NOREPINEPHRINE 8 MG/0.9 % NACL 250 ML IV PRN (15:36)
[2023-11-06 15:56] LABS: ABG A-A DIFF O2 404.9 mmHg (10-20.0); ABG BASE EXCESS 0.4 mmol/L (-2.0-3.0); ABG CARBOXYHEMOGLOBIN 0.6 % (0.5-1.5); ABG HCO3 24.7 mmol/L (21.0-28.0); ABG METHEMOGLOBIN 0.6 % (0.0-1.5); ABG OXYGEN CONTENT 20.6 mL/dL (15.0-23.0); ABG OXYGEN SATURATION 99.7 % (94.0-98.0); ABG OXYHEMOGLOBIN 98.5 % (94.0-98.0); ABG PCO2 41 mmHg (32.0-45.0); ABG PH 7.405 (7.350-7.450); ABG TOTAL HEMOGLOBIN 14.4 G/dL (12.0-16.0); O2 DEVICE,BLOOD GAS VENTILATOR (ROOM AIR); PEEP,BG 10 cm H2O; PO2, ARTERIAL BG 270.1 mmHg (83.0-108.0); SITE, BLOOD GAS ARTERIAL LINE; SOURCE, BLOOD GAS ARTERIAL; SPONTANEOUS VT, BG 470 ml; TEMPERATURE, FAHRENHEIT, BG 96.5 FAHREN (96.0-98.6); VENT MODE, BG Press. Control Vent (ROOM AIR)
[2023-11-06 15:58] LABS: I:E RATIO, BG 0 sec.; INSIPIRATORY PRESSURE, BG 28 cm H2O; INSPIRATORY TIME, BG 1.7 SEC
[2023-11-07] VITALS (7 sets, daily range): BP systolic 120–169; BP diastolic 69–86; PULSE 54–68; RESP 26; TEMP 97–97.5; O2SAT 97–99
[2023-11-07 01:35] LABS: GLUCOMETER DEV NAME(LOC) ER.7; GLUCOSE,POINT OF CARE 204 MG/DL (70-110)
[2023-11-07 02:30] LABS: GLUCOMETER DEV NAME(LOC) ER.7; GLUCOSE,POINT OF CARE 181 MG/DL (70-110)
[2023-11-07 06:45] LABS: CALCIUM, TOTAL 8.1 mg/dL (8.8-10.5); CREATININE 2.47 mg/dL (0.60-1.30); MAGNESIUM 1.4 mg/dL (1.80-2.40); PHOSPHORUS 6.6 mg/dL (2.5-4.9); POTASSIUM 4.1 mmol/L (3.5-5.1)
[2023-11-07 08:01] LABS: GLUCOMETER DEV NAME(LOC) ER.7; GLUCOSE,POINT OF CARE 215 MG/DL (70-110)
[2023-11-07 08:29] LABS: ABG A-A DIFF O2 227.9 mmHg (10-20.0); ABG BASE EXCESS -1.1 mmol/L (-2.0-3.0); ABG CARBOXYHEMOGLOBIN 0.5 % (0.5-1.5); ABG HCO3 23.8 mmol/L (21.0-28.0); ABG METHEMOGLOBIN 0.7 % (0.0-1.5); ABG OXYGEN CONTENT 18.3 mL/dL (15.0-23.0); ABG OXYGEN SATURATION 97.3 % (94.0-98.0); ABG OXYHEMOGLOBIN 96.1 % (94.0-98.0); ABG PCO2 36 mmHg (32.0-45.0); ABG PH 7.425 (7.350-7.450); ABG TOTAL HEMOGLOBIN 13.5 G/dL (12.0-16.0); O2 DEVICE,BLOOD GAS VENTILATOR (ROOM AIR); PEEP,BG 10 cm H2O; PO2, ARTERIAL BG 88.8 mmHg (83.0-108.0); SITE, BLOOD GAS ARTERIAL LINE; SOURCE, BLOOD GAS ARTERIAL; SPONTANEOUS VT, BG 480 ml; VENT MODE, BG Press. Control Vent (ROOM AIR)
[2023-11-07 08:30] LABS: I:E RATIO, BG 0 sec.; INSIPIRATORY PRESSURE, BG 22 cm H2O; INSPIRATORY TIME, BG 1.7 SEC
[2023-11-07] MEDS: VANCOMYCIN HCL 750 MG in DEXTROSE 5%-WATER 250 ML IV ONE (09:19)
[2023-11-07 11:40] LABS: GLUCOMETER DEV NAME(LOC) ICU.S6; GLUCOSE,POINT OF CARE 189 MG/DL (70-110)
[2023-11-07] MEDS: AmLODIPine BESYLATE 5 MG TABLET GT SCH (12:00)
[2023-11-07] MEDS: MAGNESIUM SULFATE 2 GM/WATER 50 ML IV ONE (12:31)
[2023-11-07] MEDS: VANCOMYCIN 750 MG/WATER(PEG) 150 ML IV ONE (12:32)
[2023-11-07] MEDS ORDERED: SODIUM CHLORIDE 0.9% 250 ML IV ONE (12:34)
[2023-11-07 13:16] LABS: GLUCOMETER DEV NAME(LOC) ICU.S6; GLUCOSE,POINT OF CARE 188 MG/DL (70-110)
[2023-11-07 13:21] LABS: GLUCOMETER DEV NAME(LOC) ER.7; GLUCOSE,POINT OF CARE 187 MG/DL (70-110)
[2023-11-07 13:21] LABS: GLUCOMETER DEV NAME(LOC) ER.7; GLUCOSE,POINT OF CARE 196 MG/DL (70-110)
[2023-11-07 15:31] LABS: GLUCOMETER DEV NAME(LOC) ICU.S6; GLUCOSE,POINT OF CARE 196 MG/DL (70-110)
[2023-11-07 15:31] LABS: GLUCOMETER DEV NAME(LOC) ICU.S6; GLUCOSE,POINT OF CARE 183 MG/DL (70-110)
[2023-11-07 16:16] LABS: CREATININE,URINE RANDOM 105.1 mg/dL (30.0-125.0)
[2023-11-07 17:10] LABS: INFLUENZA A-RTPCR,COMBO NEGATIVE (NEGATIVE); INFLUENZA B-RTPCR,COMBO NEGATIVE (NEGATIVE); RESPIRATORY SYNCYTIAL VRS-PCR NEGATIVE (NEGATIVE); SARS COVID19 RTPCR, COMBO NEGATIVE (NEGATIVE)
[2023-11-07 18:35] LABS: GLUCOMETER DEV NAME(LOC) ICU.S6; GLUCOSE,POINT OF CARE 178 MG/DL (70-110)
[2023-11-07 18:35] LABS: GLUCOMETER DEV NAME(LOC) ICU.S6; GLUCOSE,POINT OF CARE 202 MG/DL (70-110)
[2023-11-07 18:36] LABS: GLUCOMETER DEV NAME(LOC) ICU.S6; GLUCOSE,POINT OF CARE 186 MG/DL (70-110)
[2023-11-07 19:20] LABS: GLUCOMETER DEV NAME(LOC) ICUN.5; GLUCOSE,POINT OF CARE 173 MG/DL (70-110)
[2023-11-07 19:20] LABS: GLUCOMETER DEV NAME(LOC) ICUN.5; GLUCOSE,POINT OF CARE 177 MG/DL (70-110)
[2023-11-07 21:26] LABS: GLUCOMETER DEV NAME(LOC) ICUN.5; GLUCOSE,POINT OF CARE 144 MG/DL (70-110)
[2023-11-07 21:26] LABS: GLUCOMETER DEV NAME(LOC) ICUN.5; GLUCOSE,POINT OF CARE 162 MG/DL (70-110)
[2023-11-07 23:06] LABS: GLUCOMETER DEV NAME(LOC) ICUN.5; GLUCOSE,POINT OF CARE 151 MG/DL (70-110)
[2023-11-07 23:16] LABS: GLUCOMETER DEV NAME(LOC) ICUN.5; GLUCOSE,POINT OF CARE 143 MG/DL (70-110)
[2023-11-08] VITALS (12 sets, daily range): BP systolic 99–156; BP diastolic 54–76; PULSE 53–77; RESP 26; TEMP 97.7–98.2; O2SAT 92–100
[2023-11-08 01:06] LABS: GLUCOMETER DEV NAME(LOC) ICUN.5; GLUCOSE,POINT OF CARE 147 MG/DL (70-110)
[2023-11-08 01:06] LABS: GLUCOMETER DEV NAME(LOC) ICUN.5; GLUCOSE,POINT OF CARE 145 MG/DL (70-110)
[2023-11-08 03:11] LABS: GLUCOMETER DEV NAME(LOC) ICU.S6; GLUCOSE,POINT OF CARE 146 MG/DL (70-110)
[2023-11-08 03:11] LABS: GLUCOMETER DEV NAME(LOC) ICUN.5; GLUCOSE,POINT OF CARE 127 MG/DL (70-110)
[2023-11-08 03:31] LABS: GLUCOMETER DEV NAME(LOC) ICUN.5; GLUCOSE,POINT OF CARE 120 MG/DL (70-110)
[2023-11-08 05:21] LABS: GLUCOMETER DEV NAME(LOC) ICU.S6; GLUCOSE,POINT OF CARE 124 MG/DL (70-110)
[2023-11-08 06:10] LABS: GLUCOMETER DEV NAME(LOC) ICUN.5; GLUCOSE,POINT OF CARE 127 MG/DL (70-110)
[2023-11-08 06:10] LABS: GLUCOMETER DEV NAME(LOC) ICUN.5; GLUCOSE,POINT OF CARE 131 MG/DL (70-110)
[2023-11-08 06:55] LABS: BASOPHILS % (AUTO) 0.3 % (0.0-2.0); EOSINOPHILS % (AUTO) 0.1 % (1.0-6.0); HEMATOCRIT 41.8 % (36-46); HEMOGLOBIN 12.9 g/dL (12.0-16.0); LYMPHOCYTES # (AUTO) 1.2 K/uL (1.0-4.8); MEAN CORPUSCULAR HGB CONC 30.9 G/dL (31.0-37.0); MEAN CORPUSCULAR VOLUME 88 fL (80-100); NEUTROPHILS # (AUTO) 12.1 K/uL (1.8-7.7); NEUTROPHILS % (AUTO) 78.6 % (40.0-70.0); PLATELET COUNT (AUTO) 190 K/uL (150-450); RED BLOOD CELL COUNT(AUTO) 4.78 MIL/uL (4.00-5.20); RED CELL DISTRIBUTION WIDTH 16.7 % (11.5-14.5); WHITE BLOOD COUNT (AUTO) 15.5 K/uL (4.5-11.0)
[2023-11-08 07:21] LABS: CALCIUM, TOTAL 7.3 mg/dL (8.8-10.5); CREATININE 2.43 mg/dL (0.60-1.30); MAGNESIUM 1.9 mg/dL (1.80-2.40); PHOSPHORUS 7.7 mg/dL (2.5-4.9); POTASSIUM 3.9 mmol/L (3.5-5.1)
[2023-11-08 07:47] LABS: VANCOMYCIN,RANDOM 28.2 mcg/mL (25.0-50.0)
[2023-11-08] MEDS ORDERED: VANCOMYCIN 750 MG/WATER(PEG) 150 ML IV SCH (08:00)
[2023-11-08 08:41] LABS: GLUCOMETER DEV NAME(LOC) ICUN.5; GLUCOSE,POINT OF CARE 120 MG/DL (70-110)
[2023-11-08] MEDS: MethylPREDNISolone SOD SUCC 125 MG/2 ML VIAL IVP SCH (10:05)
[2023-11-08 10:31] LABS: GLUCOMETER DEV NAME(LOC) ICUN.5; GLUCOSE,POINT OF CARE 116 MG/DL (70-110)
[2023-11-08 10:31] LABS: GLUCOMETER DEV NAME(LOC) ICU.S6; GLUCOSE,POINT OF CARE 116 MG/DL (70-110)
[2023-11-08 10:56] LABS: ABG A-A DIFF O2 217.3 mmHg (10-20.0); ABG CARBOXYHEMOGLOBIN 0.5 % (0.5-1.5); ABG HCO3 19.7 mmol/L (21.0-28.0); ABG OXYGEN CONTENT 18.6 mL/dL (15.0-23.0); ABG OXYHEMOGLOBIN 95.5 % (94.0-98.0); ABG PCO2 44 mmHg (32.0-45.0); ABG TOTAL HEMOGLOBIN 13.8 G/dL (12.0-16.0); I:E RATIO, BG 0 sec.; INSIPIRATORY PRESSURE, BG 22 cm H2O; INSPIRATORY TIME, BG 1.7 SEC; O2 DEVICE,BLOOD GAS VENTILATOR (ROOM AIR); PEEP,BG 10 cm H2O; PO2, ARTERIAL BG 90.3 mmHg (83.0-108.0); SITE, BLOOD GAS ARTERIAL LINE; SOURCE, BLOOD GAS ARTERIAL; SPONTANEOUS VT, BG 450 ml; TEMPERATURE, FAHRENHEIT, BG 97.9 FAHREN (96.0-98.6); VENT MODE, BG Press. Control Vent (ROOM AIR)
[2023-11-08] MEDS ORDERED: DEXTROSE 50%-WATER 25 GM/50 ML SYRINGE IVP PRN (11:45)
[2023-11-08 11:55] LABS: GLUCOMETER DEV NAME(LOC) ICU.S6; GLUCOSE,POINT OF CARE 137 MG/DL (70-110)
[2023-11-08] MEDS: INSULIN GLARGINE,HUM.REC.ANLOG 100 UNITS/ML SQ SCH (12:16)
[2023-11-08] MEDS: INSULIN LISPRO 100 UNITS/ML SQ PRN (12:17)
[2023-11-08] MEDS: DEXTRAN 70 0.1%/HYPROMELL 0.3% 0.9 ML OPHTHALMIC SOLUTION [PF] OU SCH (14:38)
[2023-11-08 17:15] LABS: GLUCOMETER DEV NAME(LOC) ICU.S6; GLUCOSE,POINT OF CARE 153 MG/DL (70-110)
[2023-11-08] MEDS ORDERED: BUMETANIDE 0.25 MG/ML 4 ML VIAL IVP SCH (21:00)
[2023-11-08 21:41] LABS: GLUCOMETER DEV NAME(LOC) ICUN.5; GLUCOSE,POINT OF CARE 265 MG/DL (70-110)
[2023-11-08 21:41] LABS: GLUCOMETER DEV NAME(LOC) ICU.S6; GLUCOSE,POINT OF CARE 276 MG/DL (70-110)
[2023-11-09] VITALS (15 sets, daily range): BP systolic 139–170; BP diastolic 68–94; PULSE 43–75; RESP 26; TEMP 97.4–98.2; O2SAT 96–100
[2023-11-09] MEDS ORDERED: SODIUM CHLORIDE 0.9% 250 ML IV ONE (01:20)
[2023-11-09 04:11] LABS: GLUCOMETER DEV NAME(LOC) ICU.S6; GLUCOSE,POINT OF CARE 256 MG/DL (70-110)
[2023-11-09 06:22] LABS: BASOPHILS % (AUTO) 0.1 % (0.0-2.0); EOSINOPHILS % (AUTO) 0 % (1.0-6.0); HEMATOCRIT 40.3 % (36-46); HEMOGLOBIN 12.5 g/dL (12.0-16.0); LYMPHOCYTES # (AUTO) 0.3 K/uL (1.0-4.8); LYMPHOCYTES % (AUTO) 3.2 % (22.0-44.0); MEAN CORPUSCULAR HEMOGLOBIN 26.9 pg (26.0-34.0); MEAN CORPUSCULAR HGB CONC 30.9 G/dL (31.0-37.0); MEAN CORPUSCULAR VOLUME 87 fL (80-100); MONOCYTES # (AUTO) 0.5 K/uL (0.1-1.0); MONOCYTES % (AUTO) 5.1 % (2.0-9.0); NEUTROPHILS # (AUTO) 8.8 K/uL (1.8-7.7); PLATELET COUNT (AUTO) 156 K/uL (150-450); RED BLOOD CELL COUNT(AUTO) 4.64 MIL/uL (4.00-5.20); RED CELL DISTRIBUTION WIDTH 17.1 % (11.5-14.5); WHITE BLOOD COUNT (AUTO) 9.6 K/uL (4.5-11.0)
[2023-11-09 06:26] LABS: NEUTROPHILS % (AUTO) 91.6 % (40.0-70.0)
[2023-11-09 06:38] LABS: ALBUMIN 2.6 g/dL (3.4-5.0); BILIRUBIN,TOTAL 0.4 mg/dL (0.1-1.0); CALCIUM, TOTAL 7.8 mg/dL (8.8-10.5); CREATININE 2.18 mg/dL (0.60-1.30); PHOSPHORUS 7.1 mg/dL (2.5-4.9); TOTAL PROTEIN, SERUM 6.8 g/dL (6.4-8.2)
[2023-11-09 07:31] LABS: GLUCOMETER DEV NAME(LOC) ICU.S6; GLUCOSE,POINT OF CARE 288 MG/DL (70-110)
[2023-11-09] MEDS: VANCOMYCIN 1GM/WATER(PEG/NADA) 200 ML IV SCH (08:54)
[2023-11-09 12:07] LABS: C. PNEUMONIAE IGM TITER < 1:10 (< 1:10); C. PSITTACI IGM TITER < 1:10 (< 1:10); C. TRACHOMATIS IGM TITER < 1:10 (< 1:10)
[2023-11-09 12:30] LABS: GLUCOMETER DEV NAME(LOC) ICUN.5; GLUCOSE,POINT OF CARE 317 MG/DL (70-110)
[2023-11-09 18:30] LABS: GLUCOMETER DEV NAME(LOC) ICUN.5; GLUCOSE,POINT OF CARE 355 MG/DL (70-110)
[2023-11-09] MEDS: DEXMEDETOMIDINE HCL 400 MCG in SODIUM CHLORIDE 0.9% 96 ML IV PRN (19:50)
[2023-11-09] MEDS: ETHYL ALCOHOL 62% ANTISEPTIC NASAL SANITIZER 0.6 ML AMPUL NASAL SCH (20:56)
[2023-11-09] MEDS ORDERED: HydrALAZINE HCL 20 MG/ML VIAL IVP ONE (23:30)
[2023-11-10] VITALS (14 sets, daily range): BP systolic 129–169; BP diastolic 64–88; PULSE 40–104; RESP 26–30; TEMP 96.7–98.3; O2SAT 92–98
[2023-11-10] MEDS ORDERED: HydrALAZINE HCL 20 MG/ML VIAL IVP PRN
[2023-11-10 03:41] LABS: GLUCOMETER DEV NAME(LOC) ICU.S6; GLUCOSE,POINT OF CARE 330 MG/DL (70-110)
[2023-11-10] MEDS ORDERED: SODIUM CHLORIDE 0.9% 250 ML IV ONE (05:12)
[2023-11-10 06:11] LABS: BASOPHILS % (AUTO) 0.1 % (0.0-2.0); EOSINOPHILS % (AUTO) 0.1 % (1.0-6.0); HEMATOCRIT 39.9 % (36-46); HEMOGLOBIN 12.3 g/dL (12.0-16.0); LYMPHOCYTES # (AUTO) 0.7 K/uL (1.0-4.8); LYMPHOCYTES % (AUTO) 5.1 % (22.0-44.0); MEAN CORPUSCULAR HEMOGLOBIN 26.7 pg (26.0-34.0); MEAN CORPUSCULAR HGB CONC 30.9 G/dL (31.0-37.0); MEAN CORPUSCULAR VOLUME 86 fL (80-100); MONOCYTES # (AUTO) 1.7 K/uL (0.1-1.0); NEUTROPHILS # (AUTO) 11.7 K/uL (1.8-7.7); NEUTROPHILS % (AUTO) 82.7 % (40.0-70.0); PLATELET COUNT (AUTO) 146 K/uL (150-450); RED BLOOD CELL COUNT(AUTO) 4.62 MIL/uL (4.00-5.20); RED CELL DISTRIBUTION WIDTH 16.5 % (11.5-14.5); WHITE BLOOD COUNT (AUTO) 14.2 K/uL (4.5-11.0)
[2023-11-10 06:25] LABS: CREATININE 1.84 mg/dL (0.60-1.30); POTASSIUM 4.1 mmol/L (3.5-5.1)
[2023-11-10 06:40] LABS: GLUCOMETER DEV NAME(LOC) ICUN.5; GLUCOSE,POINT OF CARE 289 MG/DL (70-110)
[2023-11-10] MEDS: MethylPREDNISolone SOD SUCC 40 MG/ML VIAL IVP SCH (09:32)
[2023-11-10] MEDS: INSULIN GLARGINE,HUM.REC.ANLOG 100 UNITS/ML SQ SCH (09:35)
[2023-11-10] MEDS: FentaNYL CIT 1000MCG/0.9% NACL 100 ML IV PRN (09:39)
[2023-11-10 09:41] LABS: ABG BASE EXCESS -3.2 mmol/L (-2.0-3.0); ABG CARBOXYHEMOGLOBIN 0.6 % (0.5-1.5); ABG HCO3 22.2 mmol/L (21.0-28.0); ABG OXYGEN CONTENT 17.6 mL/dL (15.0-23.0); ABG OXYGEN SATURATION 95.1 % (94.0-98.0); ABG OXYHEMOGLOBIN 94.5 % (94.0-98.0); ABG PCO2 36 mmHg (32.0-45.0); ABG PH 7.398 (7.350-7.450); ABG TOTAL HEMOGLOBIN 13.2 G/dL (12.0-16.0); PO2, ARTERIAL BG 77.2 mmHg (83.0-108.0); SOURCE, BLOOD GAS ARTERIAL; TEMPERATURE, FAHRENHEIT, BG 97.3 FAHREN (96.0-98.6)
[2023-11-10 09:45] LABS: O2 DEVICE,BLOOD GAS VENTILATOR (ROOM AIR); SITE, BLOOD GAS ARTERIAL LINE; VENT MODE, BG Press. Control Vent (ROOM AIR)
[2023-11-10 09:46] LABS: PEEP,BG 10 cm H2O; SPONTANEOUS VT, BG 411 ml
[2023-11-10 12:15] LABS: GLUCOMETER DEV NAME(LOC) ICUN.5; GLUCOSE,POINT OF CARE 307 MG/DL (70-110)
[2023-11-10] MEDS: *CLINICAL-MEROPENEM DOSING CLINICAL ONE (13:19)
[2023-11-10 14:02] LABS: ABG BASE EXCESS -2.8 mmol/L (-2.0-3.0); ABG CARBOXYHEMOGLOBIN 0.8 % (0.5-1.5); ABG HCO3 22.5 mmol/L (21.0-28.0); ABG METHEMOGLOBIN 0.3 % (0.0-1.5); ABG OXYGEN CONTENT 17.3 mL/dL (15.0-23.0); ABG OXYGEN SATURATION 92.1 % (94.0-98.0); ABG OXYHEMOGLOBIN 91.1 % (94.0-98.0); ABG PCO2 35 mmHg (32.0-45.0); ABG PH 7.416 (7.350-7.450); ABG TOTAL HEMOGLOBIN 13.5 G/dL (12.0-16.0); PO2, ARTERIAL BG 67.2 mmHg (83.0-108.0); SOURCE, BLOOD GAS ARTERIAL; TEMPERATURE, FAHRENHEIT, BG 97.9 FAHREN (96.0-98.6)
[2023-11-10 14:03] LABS: SITE, BLOOD GAS ARTERIAL LINE
[2023-11-10 14:04] LABS: O2 DEVICE,BLOOD GAS VENTILATOR (ROOM AIR); PEEP,BG 5 cm H2O; VT, ABG 430 ml
[2023-11-10] MEDS: MEROPENEM 1 GM in SODIUM CHLORIDE 0.9% 100 ML IV SCH (14:42)
[2023-11-10 15:07] LABS: LEGIONELLA PNEUMO AG URINE Negative (Negative); S PNEUMO SOURCE Urine; STREP PNEUMONIAE AG URINE Negative (Negative)
[2023-11-10 18:51] LABS: GLUCOMETER DEV NAME(LOC) ICU.S6; GLUCOSE,POINT OF CARE 341 MG/DL (70-110)
[2023-11-11] VITALS (18 sets, daily range): BP systolic 130–157; BP diastolic 64–88; PULSE 40–110; RESP 12–37; TEMP 97.9–99.2; O2SAT 92–96
[2023-11-11] MEDS: HydrALAZINE HCL 20 MG/ML VIAL IVP PRN (00:36)
[2023-11-11 01:40] LABS: GLUCOMETER DEV NAME(LOC) ICU.S6; GLUCOSE,POINT OF CARE 278 MG/DL (70-110)
[2023-11-11 05:50] LABS: GLUCOMETER DEV NAME(LOC) ICU.S6; GLUCOSE,POINT OF CARE 251 MG/DL (70-110)
[2023-11-11 05:57] LABS: BASOPHILS % (AUTO) 0.2 % (0.0-2.0); EOSINOPHILS % (AUTO) 0.5 % (1.0-6.0); HEMATOCRIT 41.9 % (36-46); HEMOGLOBIN 12.8 g/dL (12.0-16.0); LYMPHOCYTES # (AUTO) 1.6 K/uL (1.0-4.8); LYMPHOCYTES % (AUTO) 13.6 % (22.0-44.0); MEAN CORPUSCULAR HEMOGLOBIN 26.3 pg (26.0-34.0); MEAN CORPUSCULAR HGB CONC 30.5 G/dL (31.0-37.0); MEAN CORPUSCULAR VOLUME 86 fL (80-100); MONOCYTES # (AUTO) 1.4 K/uL (0.1-1.0); MONOCYTES % (AUTO) 11.5 % (2.0-9.0); NEUTROPHILS # (AUTO) 8.7 K/uL (1.8-7.7); NEUTROPHILS % (AUTO) 74.2 % (40.0-70.0); PLATELET COUNT (AUTO) 135 K/uL (150-450); RED BLOOD CELL COUNT(AUTO) 4.87 MIL/uL (4.00-5.20); RED CELL DISTRIBUTION WIDTH 16.5 % (11.5-14.5); WHITE BLOOD COUNT (AUTO) 11.7 K/uL (4.5-11.0)
[2023-11-11 06:05] LABS: ALBUMIN 2.5 g/dL (3.4-5.0); BILIRUBIN,TOTAL 0.4 mg/dL (0.1-1.0); CALCIUM, TOTAL 9.1 mg/dL (8.8-10.5); CREATININE 1.5 mg/dL (0.60-1.30); POTASSIUM 4.2 mmol/L (3.5-5.1); TOTAL PROTEIN, SERUM 6.5 g/dL (6.4-8.2)
[2023-11-11] MEDS: MethylPREDNISolone SOD SUCC 40 MG/ML VIAL IVP SCH (09:39)
[2023-11-11] MEDS ORDERED: SODIUM CHLORIDE 0.9% 500 ML IV ONE (10:56)
[2023-11-11] MEDS ORDERED: DEXTROSE 5%-WATER 1,000 ML IV SCH (13:15)
[2023-11-11 17:31] LABS: GLUCOMETER DEV NAME(LOC) ICUN.5; GLUCOSE,POINT OF CARE 233 MG/DL (70-110)
[2023-11-11 17:36] LABS: GLUCOMETER DEV NAME(LOC) ICUN.5; GLUCOSE,POINT OF CARE 280 MG/DL (70-110)
[2023-11-11] MEDS: AmLODIPine BESYLATE 5 MG TABLET GT SCH (21:42)
[2023-11-11] MEDS: ACETAMINOPHEN 325 MG TABLET PO PRN (22:15)
[2023-11-11] MEDS: MELATONIN 5 MG TABLET PO PRN (22:15)
[2023-11-12] VITALS (16 sets, daily range): BP systolic 116–168; BP diastolic 56–98; PULSE 55–97; RESP 21–28; TEMP 98.1–99.2; O2SAT 91–96
[2023-11-12 01:06] LABS: GLUCOMETER DEV NAME(LOC) ICU.S6; GLUCOSE,POINT OF CARE 226 MG/DL (70-110)
[2023-11-12] MEDS ORDERED: SODIUM CHLORIDE 0.9% 500 ML IV ONE (03:11)
[2023-11-12 06:01] LABS: CALCIUM, TOTAL 8.7 mg/dL (8.8-10.5); CREATININE 1.52 mg/dL (0.60-1.30); EOSINOPHILS % (AUTO) 1.2 % (1.0-6.0); HEMATOCRIT 42.7 % (36-46); HEMOGLOBIN 12.7 g/dL (12.0-16.0); LYMPHOCYTES # (AUTO) 1.9 K/uL (1.0-4.8); LYMPHOCYTES % (AUTO) 12.9 % (22.0-44.0); MEAN CORPUSCULAR HGB CONC 29.8 G/dL (31.0-37.0); MEAN CORPUSCULAR VOLUME 87 fL (80-100); MONOCYTES # (AUTO) 1.4 K/uL (0.1-1.0); MONOCYTES % (AUTO) 9.5 % (2.0-9.0); NEUTROPHILS # (AUTO) 11.2 K/uL (1.8-7.7); NEUTROPHILS % (AUTO) 76.4 % (40.0-70.0); PLATELET COUNT (AUTO) 132 K/uL (150-450); POTASSIUM 4.3 mmol/L (3.5-5.1); RED BLOOD CELL COUNT(AUTO) 4.88 MIL/uL (4.00-5.20); WHITE BLOOD COUNT (AUTO) 14.7 K/uL (4.5-11.0)
[2023-11-12 06:05] LABS: PHOSPHORUS 5.1 mg/dL (2.5-4.9)
[2023-11-12] MEDS: DEXTROSE 5%-WATER 1,000 ML IV SCH (11:02)
[2023-11-12 11:40] LABS: GLUCOMETER DEV NAME(LOC) ICUN.5; GLUCOSE,POINT OF CARE 174 MG/DL (70-110)
[2023-11-12 11:46] LABS: GLUCOMETER DEV NAME(LOC) ICUN.5; GLUCOSE,POINT OF CARE 202 MG/DL (70-110)
[2023-11-12 18:55] LABS: GLUCOMETER DEV NAME(LOC) ICUN.5; GLUCOSE,POINT OF CARE 266 MG/DL (70-110)
[2023-11-13] VITALS (14 sets, daily range): BP systolic 95–177; BP diastolic 54–67; PULSE 44–105; RESP 15–32; TEMP 97.6–99.2; O2SAT 89–94
[2023-11-13 00:01] LABS: GLUCOMETER DEV NAME(LOC) ICUN.5; GLUCOSE,POINT OF CARE 177 MG/DL (70-110)
[2023-11-13 05:41] LABS: GLUCOMETER DEV NAME(LOC) ICUN.5; GLUCOSE,POINT OF CARE 157 MG/DL (70-110)
[2023-11-13 06:13] LABS: BASOPHILS % (AUTO) 0.1 % (0.0-2.0); EOSINOPHILS % (AUTO) 3.1 % (1.0-6.0); HEMATOCRIT 39.9 % (36-46); LYMPHOCYTES # (AUTO) 1.9 K/uL (1.0-4.8); LYMPHOCYTES % (AUTO) 14.6 % (22.0-44.0); MEAN CORPUSCULAR HEMOGLOBIN 26.4 pg (26.0-34.0); MEAN CORPUSCULAR VOLUME 88 fL (80-100); MONOCYTES # (AUTO) 1.2 K/uL (0.1-1.0); MONOCYTES % (AUTO) 9.7 % (2.0-9.0); NEUTROPHILS # (AUTO) 9.2 K/uL (1.8-7.7); NEUTROPHILS % (AUTO) 72.5 % (40.0-70.0); PLATELET COUNT (AUTO) 106 K/uL (150-450); RED BLOOD CELL COUNT(AUTO) 4.54 MIL/uL (4.00-5.20); RED CELL DISTRIBUTION WIDTH 17.1 % (11.5-14.5); WHITE BLOOD COUNT (AUTO) 12.7 K/uL (4.5-11.0)
[2023-11-13 06:53] LABS: VANCOMYCIN,RANDOM 15.9 mcg/mL (25.0-50.0)
[2023-11-13 08:21] LABS: CALCIUM, TOTAL 8.6 mg/dL (8.8-10.5); CREATININE 1.7 mg/dL (0.60-1.30); POTASSIUM 4.4 mmol/L (3.5-5.1)
[2023-11-13 10:11] LABS: GLUCOMETER DEV NAME(LOC) ICU.S6; GLUCOSE,POINT OF CARE 125 MG/DL (70-110)
[2023-11-13 12:59] LABS: ABG A-A DIFF O2 244.9 mmHg (10-20.0); ABG BASE EXCESS -5.5 mmol/L (-2.0-3.0); ABG CARBOXYHEMOGLOBIN 0.8 % (0.5-1.5); ABG HCO3 19.9 mmol/L (21.0-28.0); ABG METHEMOGLOBIN 0.1 % (0.0-1.5); ABG OXYGEN CONTENT 17.2 mL/dL (15.0-23.0); ABG OXYGEN SATURATION 89.5 % (94.0-98.0); ABG OXYHEMOGLOBIN 88.7 % (94.0-98.0); ABG PCO2 43 mmHg (32.0-45.0); ABG PH 7.302 (7.350-7.450); ABG TOTAL HEMOGLOBIN 13.8 G/dL (12.0-16.0); O2 DEVICE,BLOOD GAS T-PIECE (ROOM AIR); SITE, BLOOD GAS ARTERIAL LINE; SOURCE, BLOOD GAS ARTERIAL; TEMPERATURE, FAHRENHEIT, BG 98.6 FAHREN (96.0-98.6)
[2023-11-13 13:06] LABS: GLUCOMETER DEV NAME(LOC) ICU.S6; GLUCOSE,POINT OF CARE 219 MG/DL (70-110)
[2023-11-13] MEDS: QUEtiapine FUMARATE 25 MG TABLET GT SCH (14:30)
[2023-11-13] MEDS: BUMETANIDE 0.25 MG/ML 4 ML VIAL IVP ONE (14:34)
[2023-11-13 18:31] LABS: GLUCOMETER DEV NAME(LOC) ICUN.5; GLUCOSE,POINT OF CARE 297 MG/DL (70-110)
[2023-11-14] VITALS (16 sets, daily range): BP systolic 108–149; BP diastolic 54–63; PULSE 48–77; RESP 26–31; TEMP 97.8–98.4; O2SAT 91–95
[2023-11-14 01:11] LABS: GLUCOMETER DEV NAME(LOC) ICU.S6; GLUCOSE,POINT OF CARE 194 MG/DL (70-110)
[2023-11-14] MEDS ORDERED: SODIUM CHLORIDE 0.9% 250 ML IV ONE (01:25)
[2023-11-14 05:33] LABS: BAND NEUTROPHILS % (MANUAL) 0 % (0-5)
[2023-11-14 05:40] LABS: HEMATOCRIT 38.1 % (36-46); HEMOGLOBIN 11.3 g/dL (12.0-16.0); MEAN CORPUSCULAR HEMOGLOBIN 26.1 pg (26.0-34.0); MEAN CORPUSCULAR HGB CONC 29.7 G/dL (31.0-37.0); MEAN CORPUSCULAR VOLUME 88 fL (80-100); PLATELET COUNT (AUTO) 117 K/uL (150-450); RED BLOOD CELL COUNT(AUTO) 4.34 MIL/uL (4.00-5.20); WHITE BLOOD COUNT (AUTO) 12.6 K/uL (4.5-11.0)
[2023-11-14 05:55] LABS: CALCIUM, TOTAL 8.1 mg/dL (8.8-10.5); CREATININE 1.76 mg/dL (0.60-1.30); POTASSIUM 4.4 mmol/L (3.5-5.1)
[2023-11-14 06:23] LABS: EOSINOPHILS % (MANUAL) 2 % (1-6); LYMPHOCYTES % (MANUAL) 12 % (22-44); MONOCYTES % (MANUAL) 10 % (2-9); SEGMENTED NEUTROPHILS % 76 % (40-70); TOTAL CELLS COUNTED 100
[2023-11-14 12:50] LABS: GLUCOMETER DEV NAME(LOC) ICUN.5; GLUCOSE,POINT OF CARE 160 MG/DL (70-110)
[2023-11-14 12:50] LABS: GLUCOMETER DEV NAME(LOC) ICUN.5; GLUCOSE,POINT OF CARE 165 MG/DL (70-110)
[2023-11-14 20:11] LABS: GLUCOMETER DEV NAME(LOC) ICU.S6; GLUCOSE,POINT OF CARE 285 MG/DL (70-110)
[2023-11-14 20:11] LABS: GLUCOMETER DEV NAME(LOC) ICU.S6; GLUCOSE,POINT OF CARE 225 MG/DL (70-110)
[2023-11-14] MEDS: QUEtiapine FUMARATE 25 MG TABLET GT SCH (21:02)
[2023-11-15] VITALS (14 sets, daily range): BP systolic 92–184; BP diastolic 47–69; PULSE 43–105; RESP 14–30; TEMP 97.7–98.4; O2SAT 89–95
[2023-11-15 00:26] LABS: GLUCOMETER DEV NAME(LOC) ICUN.5; GLUCOSE,POINT OF CARE 167 MG/DL (70-110)
[2023-11-15 06:15] LABS: BASOPHILS % (AUTO) 0.1 % (0.0-2.0); EOSINOPHILS % (AUTO) 3.4 % (1.0-6.0); HEMATOCRIT 37.6 % (36-46); HEMOGLOBIN 11.6 g/dL (12.0-16.0); LYMPHOCYTES # (AUTO) 1.7 K/uL (1.0-4.8); LYMPHOCYTES % (AUTO) 13.8 % (22.0-44.0); MEAN CORPUSCULAR HEMOGLOBIN 26.8 pg (26.0-34.0); MEAN CORPUSCULAR HGB CONC 30.8 G/dL (31.0-37.0); MEAN CORPUSCULAR VOLUME 87 fL (80-100); MONOCYTES # (AUTO) 1.2 K/uL (0.1-1.0); MONOCYTES % (AUTO) 9.8 % (2.0-9.0); NEUTROPHILS # (AUTO) 8.9 K/uL (1.8-7.7); NEUTROPHILS % (AUTO) 72.9 % (40.0-70.0); PLATELET COUNT (AUTO) 131 K/uL (150-450); RED BLOOD CELL COUNT(AUTO) 4.33 MIL/uL (4.00-5.20); RED CELL DISTRIBUTION WIDTH 17.1 % (11.5-14.5); WHITE BLOOD COUNT (AUTO) 12.2 K/uL (4.5-11.0)
[2023-11-15 06:23] LABS: CALCIUM, TOTAL 7.9 mg/dL (8.8-10.5); CREATININE 1.54 mg/dL (0.60-1.30); POTASSIUM 4.2 mmol/L (3.5-5.1)
[2023-11-15 12:16] LABS: GLUCOMETER DEV NAME(LOC) ICU.S6; GLUCOSE,POINT OF CARE 130 MG/DL (70-110)
[2023-11-15] MEDS: FUROSEMIDE 40 MG/4 ML VIAL IVP ONE (12:23)
[2023-11-15 12:45] LABS: GLUCOMETER DEV NAME(LOC) ICUN.5; GLUCOSE,POINT OF CARE 194 MG/DL (70-110)
[2023-11-15 12:45] LABS: GLUCOMETER DEV NAME(LOC) ICUN.5; GLUCOSE,POINT OF CARE 145 MG/DL (70-110)
[2023-11-15 20:30] LABS: GLUCOMETER DEV NAME(LOC) ICU.S6; GLUCOSE,POINT OF CARE 265 MG/DL (70-110)
[2023-11-16] VITALS (13 sets, daily range): BP systolic 111–148; BP diastolic 47–62; PULSE 42–69; RESP 26–29; TEMP 97.5–98.2; O2SAT 89–95
[2023-11-16] MEDS: FUROSEMIDE 40 MG/4 ML VIAL IVP SCH (08:54)
[2023-11-16 08:55] LABS: CALCIUM, TOTAL 8.5 mg/dL (8.8-10.5); CREATININE 1.3 mg/dL (0.60-1.30); POTASSIUM 4.2 mmol/L (3.5-5.1)
[2023-11-16 09:03] LABS: BASOPHILS % (AUTO) 0.1 % (0.0-2.0); EOSINOPHILS % (AUTO) 3.3 % (1.0-6.0); HEMATOCRIT 35.2 % (36-46); HEMOGLOBIN 10.9 g/dL (12.0-16.0); LYMPHOCYTES # (AUTO) 1.7 K/uL (1.0-4.8); LYMPHOCYTES % (AUTO) 13.8 % (22.0-44.0); MEAN CORPUSCULAR HEMOGLOBIN 26.5 pg (26.0-34.0); MEAN CORPUSCULAR HGB CONC 30.8 G/dL (31.0-37.0); MEAN CORPUSCULAR VOLUME 86 fL (80-100); MONOCYTES # (AUTO) 1.2 K/uL (0.1-1.0); MONOCYTES % (AUTO) 10.1 % (2.0-9.0); NEUTROPHILS % (AUTO) 72.7 % (40.0-70.0); PLATELET COUNT (AUTO) 137 K/uL (150-450); RED BLOOD CELL COUNT(AUTO) 4.09 MIL/uL (4.00-5.20); RED CELL DISTRIBUTION WIDTH 16.7 % (11.5-14.5); WHITE BLOOD COUNT (AUTO) 12.4 K/uL (4.5-11.0)
[2023-11-16] MEDS: MEROPENEM 1 GM in SODIUM CHLORIDE 0.9% 100 ML IV SCH (10:43)
[2023-11-16 13:46] LABS: GLUCOMETER DEV NAME(LOC) ICU.S6; GLUCOSE,POINT OF CARE 187 MG/DL (70-110)
[2023-11-16 13:46] LABS: GLUCOMETER DEV NAME(LOC) ICUN.5; GLUCOSE,POINT OF CARE 195 MG/DL (70-110)
[2023-11-16 13:46] LABS: GLUCOMETER DEV NAME(LOC) ICUN.5; GLUCOSE,POINT OF CARE 120 MG/DL (70-110)
[2023-11-16 18:56] LABS: GLUCOMETER DEV NAME(LOC) ICUN.5; GLUCOSE,POINT OF CARE 282 MG/DL (70-110)
[2023-11-17] VITALS (15 sets, daily range): BP systolic 133–162; BP diastolic 51–76; PULSE 43–107; RESP 26–32; TEMP 97.7–99.5; O2SAT 92–96
[2023-11-17] MEDS ORDERED: SODIUM CHLORIDE 0.9% 250 ML IV ONE ×2 (00:03→18:49)
[2023-11-17 01:51] LABS: GLUCOMETER DEV NAME(LOC) ICUN.5; GLUCOSE,POINT OF CARE 172 MG/DL (70-110)
[2023-11-17 06:50] LABS: GLUCOMETER DEV NAME(LOC) ICUN.5; GLUCOSE,POINT OF CARE 142 MG/DL (70-110)
[2023-11-17 09:01] LABS: GLUCOMETER DEV NAME(LOC) ICUN.5; GLUCOSE,POINT OF CARE 144 MG/DL (70-110)
[2023-11-17 12:56] LABS: GLUCOMETER DEV NAME(LOC) ICU.S6; GLUCOSE,POINT OF CARE 176 MG/DL (70-110)
[2023-11-17] MEDS: HydrALAZINE HCL 25 MG TABLET PO SCH (13:19)
[2023-11-17 17:45] LABS: GLUCOMETER DEV NAME(LOC) ICU.S6; GLUCOSE,POINT OF CARE 323 MG/DL (70-110)
[2023-11-17] MEDS: ALBUTEROL SULFATE 2.5 MG/0.5 ML NEB SOLUTION NEB PRN (18:10)
[2023-11-17] MEDS: IPRATROPIUM BROMIDE 0.5 MG/2.5 ML NEB SOLUTION NEB PRN (18:10)
[2023-11-18] VITALS (14 sets, daily range): BP systolic 90–172; BP diastolic 43–112; PULSE 48–85; RESP 26–31; TEMP 98.2–98.9; O2SAT 90–97
[2023-11-18 00:21] LABS: GLUCOMETER DEV NAME(LOC) ICU.S6; GLUCOSE,POINT OF CARE 163 MG/DL (70-110)
[2023-11-18 05:45] LABS: BASOPHILS % (AUTO) 0.2 % (0.0-2.0); EOSINOPHILS % (AUTO) 2.1 % (1.0-6.0); HEMATOCRIT 28.8 % (36-46); LYMPHOCYTES # (AUTO) 1.5 K/uL (1.0-4.8); LYMPHOCYTES % (AUTO) 12.5 % (22.0-44.0); MEAN CORPUSCULAR HEMOGLOBIN 26.8 pg (26.0-34.0); MEAN CORPUSCULAR HGB CONC 31.2 G/dL (31.0-37.0); MEAN CORPUSCULAR VOLUME 86 fL (80-100); MONOCYTES # (AUTO) 1.1 K/uL (0.1-1.0); MONOCYTES % (AUTO) 8.9 % (2.0-9.0); NEUTROPHILS % (AUTO) 76.3 % (40.0-70.0); PLATELET COUNT (AUTO) 127 K/uL (150-450); RED BLOOD CELL COUNT(AUTO) 3.35 MIL/uL (4.00-5.20); RED CELL DISTRIBUTION WIDTH 16.4 % (11.5-14.5); WHITE BLOOD COUNT (AUTO) 11.8 K/uL (4.5-11.0)
[2023-11-18 06:09] LABS: MAGNESIUM 1.7 mg/dL (1.80-2.40)
[2023-11-18 06:49] LABS: ALBUMIN 2.4 g/dL (3.4-5.0); BILIRUBIN,TOTAL 0.4 mg/dL (0.1-1.0); CALCIUM, TOTAL 8.8 mg/dL (8.8-10.5); CREATININE 1.42 mg/dL (0.60-1.30); POTASSIUM 3.9 mmol/L (3.5-5.1); TOTAL PROTEIN, SERUM 6.3 g/dL (6.4-8.2)
[2023-11-18 07:01] LABS: GLUCOMETER DEV NAME(LOC) ICU.S6; GLUCOSE,POINT OF CARE 91 MG/DL (70-110)
[2023-11-18] MEDS ORDERED: SODIUM CHLORIDE 0.9% 500 ML IV ONE (07:17)
[2023-11-18 11:56] LABS: GLUCOMETER DEV NAME(LOC) ICUN.5; GLUCOSE,POINT OF CARE 203 MG/DL (70-110)
[2023-11-18 11:56] LABS: GLUCOMETER DEV NAME(LOC) ICU.S6; GLUCOSE,POINT OF CARE 152 MG/DL (70-110)
[2023-11-18 20:26] LABS: GLUCOMETER DEV NAME(LOC) ICUN.5; GLUCOSE,POINT OF CARE 255 MG/DL (70-110)
[2023-11-18 23:46] LABS: GLUCOMETER DEV NAME(LOC) ICUN.5; GLUCOSE,POINT OF CARE 157 MG/DL (70-110)
[2023-11-19] VITALS (14 sets, daily range): BP systolic 100–154; BP diastolic 44–56; PULSE 46–83; RESP 23–30; TEMP 97.7–100.5; O2SAT 89–96
[2023-11-19 06:28] LABS: BASOPHILS % (AUTO) 0.2 % (0.0-2.0); EOSINOPHILS % (AUTO) 3.6 % (1.0-6.0); HEMATOCRIT 35.8 % (36-46); HEMOGLOBIN 11.1 g/dL (12.0-16.0); LYMPHOCYTES # (AUTO) 1.9 K/uL (1.0-4.8); LYMPHOCYTES % (AUTO) 13.2 % (22.0-44.0); MEAN CORPUSCULAR HEMOGLOBIN 26.7 pg (26.0-34.0); MEAN CORPUSCULAR VOLUME 86 fL (80-100); MONOCYTES # (AUTO) 1.2 K/uL (0.1-1.0); MONOCYTES % (AUTO) 8.8 % (2.0-9.0); NEUTROPHILS # (AUTO) 10.5 K/uL (1.8-7.7); NEUTROPHILS % (AUTO) 74.2 % (40.0-70.0); PLATELET COUNT (AUTO) 153 K/uL (150-450); RED BLOOD CELL COUNT(AUTO) 4.16 MIL/uL (4.00-5.20); RED CELL DISTRIBUTION WIDTH 16.4 % (11.5-14.5); WHITE BLOOD COUNT (AUTO) 14.1 K/uL (4.5-11.0)
[2023-11-19 06:38] LABS: CALCIUM, TOTAL 8.6 mg/dL (8.8-10.5); CREATININE 1.58 mg/dL (0.60-1.30); MAGNESIUM 1.8 mg/dL (1.80-2.40); PHOSPHORUS 5.7 mg/dL (2.5-4.9); POTASSIUM 3.7 mmol/L (3.5-5.1)
[2023-11-19 08:10] LABS: GLUCOMETER DEV NAME(LOC) ICUN.5; GLUCOSE,POINT OF CARE 127 MG/DL (70-110)
[2023-11-19 12:46] LABS: GLUCOMETER DEV NAME(LOC) ICUN.5; GLUCOSE,POINT OF CARE 185 MG/DL (70-110)
[2023-11-19 17:46] LABS: GLUCOMETER DEV NAME(LOC) ICU.S6; GLUCOSE,POINT OF CARE 271 MG/DL (70-110)
[2023-11-20] VITALS (14 sets, daily range): BP systolic 111–156; BP diastolic 50–65; PULSE 45–60; RESP 26–28; TEMP 97.8–99.1; O2SAT 88–95
[2023-11-20 05:31] LABS: GLUCOMETER DEV NAME(LOC) ICUN.5; GLUCOSE,POINT OF CARE 101 MG/DL (70-110)
[2023-11-20 05:31] LABS: GLUCOMETER DEV NAME(LOC) ICUN.5; GLUCOSE,POINT OF CARE 153 MG/DL (70-110)
[2023-11-20 06:10] LABS: BASOPHILS % (AUTO) 0.2 % (0.0-2.0); EOSINOPHILS % (AUTO) 3.9 % (1.0-6.0); HEMATOCRIT 36.8 % (36-46); HEMOGLOBIN 11.4 g/dL (12.0-16.0); LYMPHOCYTES # (AUTO) 1.7 K/uL (1.0-4.8); MEAN CORPUSCULAR HEMOGLOBIN 26.8 pg (26.0-34.0); MEAN CORPUSCULAR VOLUME 86 fL (80-100); MONOCYTES # (AUTO) 1.1 K/uL (0.1-1.0); MONOCYTES % (AUTO) 8.9 % (2.0-9.0); NEUTROPHILS # (AUTO) 8.9 K/uL (1.8-7.7); PLATELET COUNT (AUTO) 152 K/uL (150-450); RED BLOOD CELL COUNT(AUTO) 4.26 MIL/uL (4.00-5.20); RED CELL DISTRIBUTION WIDTH 16.7 % (11.5-14.5); WHITE BLOOD COUNT (AUTO) 12.2 K/uL (4.5-11.0)
[2023-11-20 06:33] LABS: ALBUMIN 2.5 g/dL (3.4-5.0); BILIRUBIN,TOTAL 0.4 mg/dL (0.1-1.0); CALCIUM, TOTAL 8.7 mg/dL (8.8-10.5); CREATININE 1.28 mg/dL (0.60-1.30); POTASSIUM 3.6 mmol/L (3.5-5.1); TOTAL PROTEIN, SERUM 6.1 g/dL (6.4-8.2)
[2023-11-20 12:36] LABS: GLUCOMETER DEV NAME(LOC) ICUN.5; GLUCOSE,POINT OF CARE 105 MG/DL (70-110)
[2023-11-20] MEDS ORDERED: SODIUM CHLORIDE 0.9% 250 ML IV ONE (14:08)
[2023-11-20 18:06] LABS: GLUCOMETER DEV NAME(LOC) ICUN.5; GLUCOSE,POINT OF CARE 173 MG/DL (70-110)
[2023-11-20 19:13] LABS: C.DIFF GDH ANTIGEN, Stool Negative (Negative); C.DIFF TOXINS A&B, Stool Negative (Negative)
[2023-11-20 20:00] LABS: GLUCOMETER DEV NAME(LOC) ICUN.5; GLUCOSE,POINT OF CARE 230 MG/DL (70-110)
[2023-11-20] MEDS: QUEtiapine FUMARATE 25 MG TABLET GT SCH (20:36)
[2023-11-21] VITALS (13 sets, daily range): BP systolic 97–155; BP diastolic 42–65; PULSE 45–107; RESP 26–29; TEMP 98.4–99.5; O2SAT 89–97
[2023-11-21 06:15] LABS: BASOPHILS % (AUTO) 0.3 % (0.0-2.0); EOSINOPHILS % (AUTO) 4.5 % (1.0-6.0); HEMATOCRIT 36.6 % (36-46); HEMOGLOBIN 11.4 g/dL (12.0-16.0); LYMPHOCYTES # (AUTO) 1.9 K/uL (1.0-4.8); LYMPHOCYTES % (AUTO) 15.2 % (22.0-44.0); MEAN CORPUSCULAR HEMOGLOBIN 26.5 pg (26.0-34.0); MEAN CORPUSCULAR HGB CONC 31.1 G/dL (31.0-37.0); MEAN CORPUSCULAR VOLUME 85 fL (80-100); MONOCYTES # (AUTO) 1.1 K/uL (0.1-1.0); MONOCYTES % (AUTO) 8.4 % (2.0-9.0); NEUTROPHILS # (AUTO) 8.9 K/uL (1.8-7.7); NEUTROPHILS % (AUTO) 71.6 % (40.0-70.0); PLATELET COUNT (AUTO) 144 K/uL (150-450); RED CELL DISTRIBUTION WIDTH 16.4 % (11.5-14.5); WHITE BLOOD COUNT (AUTO) 12.5 K/uL (4.5-11.0)
[2023-11-21 06:33] LABS: CALCIUM, TOTAL 8.9 mg/dL (8.8-10.5); CREATININE 1.3 mg/dL (0.60-1.30); MAGNESIUM 1.7 mg/dL (1.80-2.40); PHOSPHORUS 4.5 mg/dL (2.5-4.9); POTASSIUM 3.3 mmol/L (3.5-5.1)
[2023-11-21 06:45] LABS: GLUCOMETER DEV NAME(LOC) ICU.S6; GLUCOSE,POINT OF CARE 134 MG/DL (70-110)
[2023-11-21] MEDS: POTASSIUM CHL 10 MEQ/WATER 50 ML IV SCH ×2 (08:10→15:45)
[2023-11-21] MEDS: POTASSIUM CHLORIDE 10% 40 MEQ/30 ML LIQUID UDCUP NG ONE (08:10)
[2023-11-21] MEDS: AMINO ACIDS/PROTEIN HYDROLYS 30 ML LIQUID TUBE NG SCH (08:11)
[2023-11-21] MEDS: AmLODIPine BESYLATE 5 MG TABLET GT SCH (08:12)
[2023-11-21] MEDS: MAGNESIUM SULFATE 2 GM/WATER 50 ML IV ONE (09:38)
[2023-11-21 12:56] LABS: ABG A-A DIFF O2 381.6 mmHg (10-20.0); ABG BASE EXCESS 6.2 mmol/L (-2.0-3.0); ABG CARBOXYHEMOGLOBIN 0.6 % (0.5-1.5); ABG HCO3 29.3 mmol/L (21.0-28.0); ABG METHEMOGLOBIN 0.1 % (0.0-1.5); ABG OXYGEN CONTENT 16.2 mL/dL (15.0-23.0); ABG OXYHEMOGLOBIN 92.3 % (94.0-98.0); ABG PCO2 45 mmHg (32.0-45.0); ABG PH 7.444 (7.350-7.450); ABG TOTAL HEMOGLOBIN 12.5 G/dL (12.0-16.0); O2 DEVICE,BLOOD GAS VENTILATOR (ROOM AIR); PEEP,BG 5 cm H2O; PO2, ARTERIAL BG 68.4 mmHg (83.0-108.0); SITE, BLOOD GAS ARTERIAL LINE; SOURCE, BLOOD GAS ARTERIAL; SPONTANEOUS VT, BG 429 ml; TEMPERATURE, FAHRENHEIT, BG 99.1 FAHREN (96.0-98.6); VT, ABG 430 ml
[2023-11-21 13:06] LABS: GLUCOMETER DEV NAME(LOC) ICUN.5; GLUCOSE,POINT OF CARE 114 MG/DL (70-110)
[2023-11-21 13:20] LABS: GLUCOMETER DEV NAME(LOC) ICUN.5; GLUCOSE,POINT OF CARE 246 MG/DL (70-110)
[2023-11-21 13:26] LABS: GLUCOMETER DEV NAME(LOC) ICU.S6; GLUCOSE,POINT OF CARE 132 MG/DL (70-110)
[2023-11-21 21:45] LABS: GLUCOMETER DEV NAME(LOC) ICU.S6; GLUCOSE,POINT OF CARE 256 MG/DL (70-110)
[2023-11-22] VITALS (14 sets, daily range): BP systolic 101–156; BP diastolic 54–70; PULSE 45–65; RESP 26–27; TEMP 98–98.5; O2SAT 87–95
[2023-11-22 04:51] LABS: GLUCOMETER DEV NAME(LOC) ICUN.5; GLUCOSE,POINT OF CARE 141 MG/DL (70-110)
[2023-11-22 06:21] LABS: GLUCOMETER DEV NAME(LOC) ICUN.5; GLUCOSE,POINT OF CARE 131 MG/DL (70-110)
[2023-11-22 06:27] LABS: BASOPHILS % (AUTO) 0.4 % (0.0-2.0); HEMATOCRIT 37.2 % (36-46); HEMOGLOBIN 11.7 g/dL (12.0-16.0); LYMPHOCYTES # (AUTO) 1.7 K/uL (1.0-4.8); LYMPHOCYTES % (AUTO) 16.1 % (22.0-44.0); MEAN CORPUSCULAR HEMOGLOBIN 26.8 pg (26.0-34.0); MEAN CORPUSCULAR HGB CONC 31.4 G/dL (31.0-37.0); MEAN CORPUSCULAR VOLUME 86 fL (80-100); MONOCYTES # (AUTO) 0.9 K/uL (0.1-1.0); MONOCYTES % (AUTO) 8.6 % (2.0-9.0); NEUTROPHILS # (AUTO) 7.3 K/uL (1.8-7.7); NEUTROPHILS % (AUTO) 69.9 % (40.0-70.0); PLATELET COUNT (AUTO) 133 K/uL (150-450); RED BLOOD CELL COUNT(AUTO) 4.34 MIL/uL (4.00-5.20); RED CELL DISTRIBUTION WIDTH 16.9 % (11.5-14.5); WHITE BLOOD COUNT (AUTO) 10.4 K/uL (4.5-11.0)
[2023-11-22 06:54] LABS: CALCIUM, TOTAL 9.1 mg/dL (8.8-10.5); CREATININE 1.34 mg/dL (0.60-1.30); PHOSPHORUS 3.9 mg/dL (2.5-4.9); POTASSIUM 3.7 mmol/L (3.5-5.1)
[2023-11-22] MEDS: POTASSIUM CHLORIDE 10 MEQ ER TABLET PO ONE (16:25)
[2023-11-22 18:16] LABS: GLUCOMETER DEV NAME(LOC) ICU.S6; GLUCOSE,POINT OF CARE 286 MG/DL (70-110)
[2023-11-22 19:21] LABS: GLUCOMETER DEV NAME(LOC) ICU.S6; GLUCOSE,POINT OF CARE 310 MG/DL (70-110)
[2023-11-22] MEDS ORDERED: ATROPINE SULFATE 0.1 MG/ML 10 ML SYRINGE IVP ONE (21:13)
[2023-11-22] MEDS ORDERED: EPINEPHrine 1:10,000 [1 MG/10 ML] SYRINGE ONE (21:14)
[2023-11-23] VITALS (16 sets, daily range): BP systolic 115–169; BP diastolic 50–78; PULSE 40–85; RESP 17–26; TEMP 96.7–98.2; O2SAT 89–96
[2023-11-23 01:31] LABS: GLUCOMETER DEV NAME(LOC) ICUN.5; GLUCOSE,POINT OF CARE 248 MG/DL (70-110)
[2023-11-23] MEDS ORDERED: SODIUM CHLORIDE 0.9% 500 ML IV ONE (05:43)
[2023-11-23 06:12] LABS: BASOPHILS % (AUTO) 0.3 % (0.0-2.0); EOSINOPHILS % (AUTO) 3.4 % (1.0-6.0); HEMATOCRIT 39.6 % (36-46); HEMOGLOBIN 12.4 g/dL (12.0-16.0); LYMPHOCYTES # (AUTO) 1.7 K/uL (1.0-4.8); LYMPHOCYTES % (AUTO) 13.9 % (22.0-44.0); MEAN CORPUSCULAR HEMOGLOBIN 26.8 pg (26.0-34.0); MEAN CORPUSCULAR HGB CONC 31.4 G/dL (31.0-37.0); MEAN CORPUSCULAR VOLUME 85 fL (80-100); MONOCYTES % (AUTO) 7.7 % (2.0-9.0); NEUTROPHILS # (AUTO) 9.3 K/uL (1.8-7.7); NEUTROPHILS % (AUTO) 74.7 % (40.0-70.0); PLATELET COUNT (AUTO) 127 K/uL (150-450); RED BLOOD CELL COUNT(AUTO) 4.64 MIL/uL (4.00-5.20); RED CELL DISTRIBUTION WIDTH 16.4 % (11.5-14.5); WHITE BLOOD COUNT (AUTO) 12.5 K/uL (4.5-11.0)
[2023-11-23 06:24] LABS: CALCIUM, TOTAL 9.7 mg/dL (8.8-10.5); CREATININE 1.23 mg/dL (0.60-1.30); MAGNESIUM 1.8 mg/dL (1.80-2.40); PHOSPHORUS 4.1 mg/dL (2.5-4.9); POTASSIUM 3.5 mmol/L (3.5-5.1)
[2023-11-23 10:44] LABS: ABG BASE EXCESS 6.6 mmol/L (-2.0-3.0); ABG CARBOXYHEMOGLOBIN 0.4 % (0.5-1.5); ABG METHEMOGLOBIN 0.1 % (0.0-1.5); ABG OXYGEN CONTENT 17.9 mL/dL (15.0-23.0); ABG OXYHEMOGLOBIN 93.5 % (94.0-98.0); ABG PCO2 38 mmHg (32.0-45.0); ABG PH 7.513 (7.350-7.450); ABG TOTAL HEMOGLOBIN 13.6 G/dL (12.0-16.0); PO2, ARTERIAL BG 65.3 mmHg (83.0-108.0); SITE, BLOOD GAS ARTERIAL LINE; SOURCE, BLOOD GAS ARTERIAL; TEMPERATURE, FAHRENHEIT, BG 96.7 FAHREN (96.0-98.6)
[2023-11-23 10:45] LABS: ABG A-A DIFF O2 467.8 mmHg (10-20.0); O2 DEVICE,BLOOD GAS HI FL CANNULA (ROOM AIR)
[2023-11-23 12:31] LABS: GLUCOMETER DEV NAME(LOC) ICU.S6; GLUCOSE,POINT OF CARE 238 MG/DL (70-110)
[2023-11-23] MEDS ORDERED: FentaNYL CITRATE PF 100 MCG/2 ML VIAL ONE (12:45)
[2023-11-23] MEDS ORDERED: MIDAZOLAM HCL 2 MG/2 ML VIAL ONE (12:45)
[2023-11-23] MEDS: FentaNYL CITRATE PF 100 MCG/2 ML VIAL IVP ONE (12:58)
[2023-11-23] MEDS: MIDAZOLAM HCL 2 MG/2 ML VIAL IVP ONE (13:00)
[2023-11-23 15:14] LABS: ABG BASE EXCESS 10.6 mmol/L (-2.0-3.0); ABG CARBOXYHEMOGLOBIN 0.6 % (0.5-1.5); ABG HCO3 32.9 mmol/L (21.0-28.0); ABG OXYGEN CONTENT 17.7 mL/dL (15.0-23.0); ABG OXYGEN SATURATION 92.6 % (94.0-98.0); ABG PCO2 46 mmHg (32.0-45.0); ABG TOTAL HEMOGLOBIN 13.7 G/dL (12.0-16.0); PO2, ARTERIAL BG 63.5 mmHg (83.0-108.0); SITE, BLOOD GAS ARTERIAL LINE; SOURCE, BLOOD GAS ARTERIAL; TEMPERATURE, FAHRENHEIT, BG 97.5 FAHREN (96.0-98.6)
[2023-11-23 15:15] LABS: ABG A-A DIFF O2 605.5 mmHg (10-20.0); O2 DEVICE,BLOOD GAS VENTILATOR (ROOM AIR); PEEP,BG 5 cm H2O; VT, ABG 430 ml
[2023-11-23 19:05] LABS: GLUCOMETER DEV NAME(LOC) ICUN.5; GLUCOSE,POINT OF CARE 392 MG/DL (70-110)
[2023-11-23] MEDS ORDERED: POTASSIUM CHLORIDE 10 MEQ ER TABLET PO SCH (21:00)
[2023-11-23] MEDS: POTASSIUM CHLORIDE 10% 40 MEQ/30 ML LIQUID UDCUP NG SCH (22:23)
[2023-11-24] VITALS (15 sets, daily range): BP systolic 112–163; BP diastolic 54–73; PULSE 42–82; RESP 26–28; TEMP 96.6–98.7; O2SAT 89–94
[2023-11-24 01:31] LABS: GLUCOMETER DEV NAME(LOC) ICUN.5; GLUCOSE,POINT OF CARE 227 MG/DL (70-110)
[2023-11-24] MEDS ORDERED: SODIUM CHLORIDE 0.9% 500 ML IV ONE (01:46)
[2023-11-24] MEDS ORDERED: ROCURONIUM BROMIDE 10 MG/ML 5 ML VIAL IV ONE (01:50)
[2023-11-24] MEDS ORDERED: ETOMIDATE 2 MG/ML 10 ML VIAL IV ONE (01:50)
[2023-11-24] MEDS ORDERED: LIDOCAINE/PF 2% 5 ML SYRINGE IVP ONE (01:50)
[2023-11-24 06:29] LABS: BASOPHILS % (AUTO) 0.7 % (0.0-2.0); EOSINOPHILS % (AUTO) 5.7 % (1.0-6.0); HEMATOCRIT 40.9 % (36-46); LYMPHOCYTES % (AUTO) 19.1 % (22.0-44.0); MEAN CORPUSCULAR HEMOGLOBIN 26.9 pg (26.0-34.0); MEAN CORPUSCULAR HGB CONC 31.7 G/dL (31.0-37.0); MEAN CORPUSCULAR VOLUME 85 fL (80-100); MONOCYTES # (AUTO) 0.8 K/uL (0.1-1.0); MONOCYTES % (AUTO) 7.3 % (2.0-9.0); NEUTROPHILS % (AUTO) 67.2 % (40.0-70.0); PLATELET COUNT (AUTO) 117 K/uL (150-450); RED BLOOD CELL COUNT(AUTO) 4.82 MIL/uL (4.00-5.20); RED CELL DISTRIBUTION WIDTH 16.7 % (11.5-14.5); WHITE BLOOD COUNT (AUTO) 10.4 K/uL (4.5-11.0)
[2023-11-24 06:33] LABS: CALCIUM, TOTAL 9.9 mg/dL (8.8-10.5); CREATININE 1.23 mg/dL (0.60-1.30); MAGNESIUM 1.7 mg/dL (1.80-2.40); PHOSPHORUS 3.9 mg/dL (2.5-4.9); POTASSIUM 3.5 mmol/L (3.5-5.1)
[2023-11-24 06:51] LABS: GLUCOMETER DEV NAME(LOC) ICUN.5; GLUCOSE,POINT OF CARE 185 MG/DL (70-110)
[2023-11-24] MEDS: SODIUM CHLORIDE 0.9% 250 ML IV ONE (13:42)
[2023-11-24] MEDS ORDERED: SODIUM CHLORIDE 0.9% 100 ML ONE (13:56)
[2023-11-24] MEDS ORDERED: 0.9% SODIUM CHLORIDE 10 ML SYRINGE IVP ONE (13:56)
[2023-11-24] MEDS ORDERED: IOHEXOL 300 MG/ML 100 ML VIAL ONE (13:56)
[2023-11-24 18:00] LABS: GLUCOMETER DEV NAME(LOC) ICUN.5; GLUCOSE,POINT OF CARE 278 MG/DL (70-110)
[2023-11-24 21:30] LABS: GLUCOMETER DEV NAME(LOC) ICUN.5; GLUCOSE,POINT OF CARE 205 MG/DL (70-110)
[2023-11-25] VITALS (21 sets, daily range): BP systolic 121–170; BP diastolic 47–65; PULSE 48–77; RESP 25–30; TEMP 97.6–98.7; O2SAT 89–97
[2023-11-25 04:11] LABS: GLUCOMETER DEV NAME(LOC) ICU.S6; GLUCOSE,POINT OF CARE 133 MG/DL (70-110)
[2023-11-25 05:33] LABS: BASOPHILS % (AUTO) 0.4 % (0.0-2.0); EOSINOPHILS % (AUTO) 5.4 % (1.0-6.0); HEMOGLOBIN 12.2 g/dL (12.0-16.0); LYMPHOCYTES # (AUTO) 2.2 K/uL (1.0-4.8); LYMPHOCYTES % (AUTO) 20.4 % (22.0-44.0); MEAN CORPUSCULAR HEMOGLOBIN 26.8 pg (26.0-34.0); MEAN CORPUSCULAR HGB CONC 31.3 G/dL (31.0-37.0); MEAN CORPUSCULAR VOLUME 86 fL (80-100); MONOCYTES # (AUTO) 0.8 K/uL (0.1-1.0); MONOCYTES % (AUTO) 7.3 % (2.0-9.0); NEUTROPHILS # (AUTO) 7.2 K/uL (1.8-7.7); NEUTROPHILS % (AUTO) 66.5 % (40.0-70.0); PLATELET COUNT (AUTO) 123 K/uL (150-450); RED BLOOD CELL COUNT(AUTO) 4.56 MIL/uL (4.00-5.20); RED CELL DISTRIBUTION WIDTH 16.8 % (11.5-14.5); WHITE BLOOD COUNT (AUTO) 10.9 K/uL (4.5-11.0)
[2023-11-25 05:59] LABS: CALCIUM, TOTAL 9.3 mg/dL (8.8-10.5); CREATININE 1.48 mg/dL (0.60-1.30); POTASSIUM 3.5 mmol/L (3.5-5.1)
[2023-11-25 06:40] LABS: GLUCOMETER DEV NAME(LOC) ICUN.5; GLUCOSE,POINT OF CARE 103 MG/DL (70-110)
[2023-11-25 09:33] LABS: MAGNESIUM 1.6 mg/dL (1.80-2.40); PHOSPHORUS 4.9 mg/dL (2.5-4.9)
[2023-11-25] MEDS: MAGNESIUM SULFATE 1 GM in DEXTROSE 5%-WATER 50 ML IV ONE (12:09)
[2023-11-25 12:41] LABS: GLUCOMETER DEV NAME(LOC) ICUN.5; GLUCOSE,POINT OF CARE 232 MG/DL (70-110)
[2023-11-25] MEDS: IPRATROPIUM BROMIDE 0.5 MG/2.5 ML NEB SOLUTION NEB SCH (20:08)
[2023-11-25] MEDS: BUDESONIDE 0.5 MG/2 ML NEB SOLUTION NEB SCH (20:08)
[2023-11-25] MEDS: ALBUTEROL SULFATE 2.5 MG/0.5 ML NEB SOLUTION NEB SCH (20:08)
[2023-11-25 21:20] LABS: GLUCOMETER DEV NAME(LOC) ICU.S6; GLUCOSE,POINT OF CARE 248 MG/DL (70-110)
[2023-11-26] VITALS (25 sets, daily range): BP systolic 94–164; BP diastolic 43–66; PULSE 47–94; RESP 26–30; TEMP 97.8–98.7; O2SAT 90–97
[2023-11-26 01:15] LABS: GLUCOMETER DEV NAME(LOC) ICUN.5; GLUCOSE,POINT OF CARE 131 MG/DL (70-110)
[2023-11-26 05:53] LABS: BASOPHILS % (AUTO) 0.3 % (0.0-2.0); EOSINOPHILS % (AUTO) 4.1 % (1.0-6.0); HEMATOCRIT 35.7 % (36-46); HEMOGLOBIN 11.3 g/dL (12.0-16.0); LYMPHOCYTES # (AUTO) 2.3 K/uL (1.0-4.8); LYMPHOCYTES % (AUTO) 19.7 % (22.0-44.0); MEAN CORPUSCULAR HEMOGLOBIN 26.9 pg (26.0-34.0); MEAN CORPUSCULAR HGB CONC 31.6 G/dL (31.0-37.0); MEAN CORPUSCULAR VOLUME 85 fL (80-100); MONOCYTES # (AUTO) 0.9 K/uL (0.1-1.0); MONOCYTES % (AUTO) 7.9 % (2.0-9.0); NEUTROPHILS # (AUTO) 7.9 K/uL (1.8-7.7); PLATELET COUNT (AUTO) 102 K/uL (150-450); RED CELL DISTRIBUTION WIDTH 16.8 % (11.5-14.5); WHITE BLOOD COUNT (AUTO) 11.6 K/uL (4.5-11.0)
[2023-11-26 05:55] LABS: CALCIUM, TOTAL 8.8 mg/dL (8.8-10.5); CREATININE 1.38 mg/dL (0.60-1.30); MAGNESIUM 1.9 mg/dL (1.80-2.40); POTASSIUM 3.2 mmol/L (3.5-5.1)
[2023-11-26] MEDS: POTASSIUM CHLORIDE 10% 40 MEQ/30 ML LIQUID UDCUP PO ONE (08:27)
[2023-11-26 09:31] LABS: GLUCOMETER DEV NAME(LOC) ICU.S6; GLUCOSE,POINT OF CARE 102 MG/DL (70-110)
[2023-11-26 09:31] LABS: GLUCOMETER DEV NAME(LOC) ICUN.5; GLUCOSE,POINT OF CARE 111 MG/DL (70-110)
[2023-11-26 13:31] LABS: GLUCOMETER DEV NAME(LOC) ICUN.5; GLUCOSE,POINT OF CARE 147 MG/DL (70-110)
[2023-11-26 19:10] LABS: GLUCOMETER DEV NAME(LOC) ICUN.5; GLUCOSE,POINT OF CARE 273 MG/DL (70-110)
[2023-11-27] VITALS (29 sets, daily range): BP systolic 118–174; BP diastolic 49–61; PULSE 43–91; RESP 26–29; TEMP 97.8–99; O2SAT 26–95
[2023-11-27 03:31] LABS: GLUCOMETER DEV NAME(LOC) ICU.S6; GLUCOSE,POINT OF CARE 175 MG/DL (70-110)
[2023-11-27 05:41] LABS: BASOPHILS % (AUTO) 0.3 % (0.0-2.0); EOSINOPHILS % (AUTO) 2.9 % (1.0-6.0); HEMATOCRIT 33.3 % (36-46); HEMOGLOBIN 10.5 g/dL (12.0-16.0); LYMPHOCYTES # (AUTO) 1.1 K/uL (1.0-4.8); LYMPHOCYTES % (AUTO) 12.8 % (22.0-44.0); MEAN CORPUSCULAR HGB CONC 31.6 G/dL (31.0-37.0); MEAN CORPUSCULAR VOLUME 85 fL (80-100); MONOCYTES # (AUTO) 0.9 K/uL (0.1-1.0); MONOCYTES % (AUTO) 10.2 % (2.0-9.0); NEUTROPHILS # (AUTO) 6.3 K/uL (1.8-7.7); NEUTROPHILS % (AUTO) 73.8 % (40.0-70.0); PLATELET COUNT (AUTO) 94 K/uL (150-450); RED CELL DISTRIBUTION WIDTH 17.1 % (11.5-14.5); WHITE BLOOD COUNT (AUTO) 8.5 K/uL (4.5-11.0)
[2023-11-27 05:50] LABS: CALCIUM, TOTAL 8.6 mg/dL (8.8-10.5); CREATININE 1.43 mg/dL (0.60-1.30); POTASSIUM 4.6 mmol/L (3.5-5.1)
[2023-11-27 06:45] LABS: GLUCOMETER DEV NAME(LOC) ICUN.5; GLUCOSE,POINT OF CARE 111 MG/DL (70-110)
[2023-11-27 09:51] LABS: GLUCOMETER DEV NAME(LOC) ICUN.5; GLUCOSE,POINT OF CARE 110 MG/DL (70-110)
[2023-11-27 12:01] LABS: GLUCOMETER DEV NAME(LOC) ICU.S6; GLUCOSE,POINT OF CARE 165 MG/DL (70-110)
[2023-11-27 23:51] LABS: GLUCOMETER DEV NAME(LOC) ICU.S6; GLUCOSE,POINT OF CARE 123 MG/DL (70-110)
[2023-11-28] VITALS (26 sets, daily range): BP systolic 114–151; BP diastolic 49–93; PULSE 48–73; RESP 16–29; TEMP 97.6–98.5; O2SAT 26–97
[2023-11-28] MEDS ORDERED: SODIUM CHLORIDE 0.9% 500 ML IV ONE (01:27)
[2023-11-28] MEDS ORDERED: SODIUM CHLORIDE 0.9% 250 ML IV ONE (01:38)
[2023-11-28 05:56] LABS: GLUCOMETER DEV NAME(LOC) ICU.S6; GLUCOSE,POINT OF CARE 103 MG/DL (70-110)
[2023-11-28 06:16] LABS: PHOSPHORUS 4.9 mg/dL (2.5-4.9)
[2023-11-28 06:55] LABS: GLUCOMETER DEV NAME(LOC) ICUN.5; GLUCOSE,POINT OF CARE 210 MG/DL (70-110)
[2023-11-28 08:09] LABS: BASOPHILS % (AUTO) 0.5 % (0.0-2.0); EOSINOPHILS % (AUTO) 7.6 % (1.0-6.0); HEMATOCRIT 33.5 % (36-46); HEMOGLOBIN 10.6 g/dL (12.0-16.0); LYMPHOCYTES # (AUTO) 1.6 K/uL (1.0-4.8); LYMPHOCYTES % (AUTO) 19.4 % (22.0-44.0); MEAN CORPUSCULAR HEMOGLOBIN 27.1 pg (26.0-34.0); MEAN CORPUSCULAR HGB CONC 31.6 G/dL (31.0-37.0); MEAN CORPUSCULAR VOLUME 86 fL (80-100); MONOCYTES # (AUTO) 0.8 K/uL (0.1-1.0); MONOCYTES % (AUTO) 9.5 % (2.0-9.0); NEUTROPHILS # (AUTO) 5.3 K/uL (1.8-7.7); PLATELET COUNT (AUTO) 106 K/uL (150-450); RED BLOOD CELL COUNT(AUTO) 3.91 MIL/uL (4.00-5.20); RED CELL DISTRIBUTION WIDTH 17.4 % (11.5-14.5); WHITE BLOOD COUNT (AUTO) 8.4 K/uL (4.5-11.0)
[2023-11-28 08:21] LABS: CALCIUM, TOTAL 9.1 mg/dL (8.8-10.5); CREATININE 1.2 mg/dL (0.60-1.30); POTASSIUM 4.3 mmol/L (3.5-5.1)
[2023-11-28] MEDS: FUROSEMIDE 20 MG/2 ML VIAL IVP SCH (08:38)
[2023-11-28] MEDS: MethylPREDNISolone SOD SUCC 40 MG/ML VIAL IVP SCH (08:40)
[2023-11-28 19:01] LABS: GLUCOMETER DEV NAME(LOC) ICUN.5; GLUCOSE,POINT OF CARE 221 MG/DL (70-110)
[2023-11-29] VITALS (32 sets, daily range): BP systolic 120–152; BP diastolic 51–74; PULSE 46–92; RESP 26–29; TEMP 97.3–98.5; O2SAT 87–96
[2023-11-29 00:26] LABS: GLUCOMETER DEV NAME(LOC) ICU.S6; GLUCOSE,POINT OF CARE 164 MG/DL (70-110)
[2023-11-29 01:56] LABS: GLUCOMETER DEV NAME(LOC) ICUN.5; GLUCOSE,POINT OF CARE 114 MG/DL (70-110)
[2023-11-29 06:28] LABS: BASOPHILS % (AUTO) 0.5 % (0.0-2.0); EOSINOPHILS % (AUTO) 8.6 % (1.0-6.0); HEMATOCRIT 32.3 % (36-46); HEMOGLOBIN 10.3 g/dL (12.0-16.0); LYMPHOCYTES # (AUTO) 1.4 K/uL (1.0-4.8); LYMPHOCYTES % (AUTO) 17.9 % (22.0-44.0); MEAN CORPUSCULAR HEMOGLOBIN 27.5 pg (26.0-34.0); MEAN CORPUSCULAR HGB CONC 31.9 G/dL (31.0-37.0); MEAN CORPUSCULAR VOLUME 86 fL (80-100); MONOCYTES # (AUTO) 0.7 K/uL (0.1-1.0); NEUTROPHILS # (AUTO) 4.9 K/uL (1.8-7.7); PLATELET COUNT (AUTO) 122 K/uL (150-450); RED BLOOD CELL COUNT(AUTO) 3.74 MIL/uL (4.00-5.20); RED CELL DISTRIBUTION WIDTH 17.2 % (11.5-14.5); WHITE BLOOD COUNT (AUTO) 7.6 K/uL (4.5-11.0)
[2023-11-29 06:30] LABS: GLUCOMETER DEV NAME(LOC) ICUN.5; GLUCOSE,POINT OF CARE 103 MG/DL (70-110)
[2023-11-29 06:37] LABS: CALCIUM, TOTAL 8.7 mg/dL (8.8-10.5); CREATININE 1.21 mg/dL (0.60-1.30); POTASSIUM 4.2 mmol/L (3.5-5.1)
[2023-11-29 09:47] LABS: ABG BASE EXCESS -1.5 mmol/L (-2.0-3.0); ABG CARBOXYHEMOGLOBIN 0.3 % (0.5-1.5); ABG HCO3 23.2 mmol/L (21.0-28.0); ABG METHEMOGLOBIN 0.8 % (0.0-1.5); ABG OXYGEN CONTENT 14.6 mL/dL (15.0-23.0); ABG OXYGEN SATURATION 90.2 % (94.0-98.0); ABG OXYHEMOGLOBIN 89.2 % (94.0-98.0); ABG PCO2 39 mmHg (32.0-45.0); ABG PH 7.399 (7.350-7.450); ABG TOTAL HEMOGLOBIN 11.6 G/dL (12.0-16.0); PO2, ARTERIAL BG 59.3 mmHg (83.0-108.0); SITE, BLOOD GAS ARTERIAL LINE; SOURCE, BLOOD GAS ARTERIAL; TEMPERATURE, FAHRENHEIT, BG 98.2 FAHREN (96.0-98.6)
[2023-11-29 09:48] LABS: ABG A-A DIFF O2 254.1 mmHg (10-20.0); O2 DEVICE,BLOOD GAS VENTILATOR (ROOM AIR); PEEP,BG 5 cm H2O; VT, ABG 430 ml
[2023-11-29 13:10] LABS: GLUCOMETER DEV NAME(LOC) ICUN.5; GLUCOSE,POINT OF CARE 166 MG/DL (70-110)
[2023-11-29] MEDS ORDERED: ACETYLCYSTEINE 10% 100 MG/ML 4 ML NEB SOLUTION NEB SCH (15:00)
[2023-11-29] MEDS: ACETYLCYSTEINE 10% 100 MG/ML 4 ML NEB SOLUTION NEB SCH (15:38)
[2023-11-29 18:30] LABS: GLUCOMETER DEV NAME(LOC) ICUN.5; GLUCOSE,POINT OF CARE 179 MG/DL (70-110)
[2023-11-30] VITALS (31 sets, daily range): BP systolic 93–143; BP diastolic 53–68; PULSE 50–87; RESP 6–28; TEMP 97.4–98.8; O2SAT 88–94
[2023-11-30] MEDS ORDERED: SODIUM CHLORIDE 0.9% 250 ML IV ONE (01:53)
[2023-11-30] MEDS ORDERED: SODIUM CHLORIDE 0.9% 500 ML IV ONE ×2 (05:02→17:09)
[2023-11-30 05:26] LABS: GLUCOMETER DEV NAME(LOC) ICU.S6; GLUCOSE,POINT OF CARE 92 MG/DL (70-110)
[2023-11-30 06:59] LABS: CREATININE 1.12 mg/dL (0.60-1.30); MAGNESIUM 1.8 mg/dL (1.80-2.40); POTASSIUM 4.3 mmol/L (3.5-5.1)
[2023-11-30 07:56] LABS: GLUCOMETER DEV NAME(LOC) ICU.S6; GLUCOSE,POINT OF CARE 105 MG/DL (70-110)
[2023-11-30] MEDS: NYSTATIN 15 GM POWDER BOTTLE TP SCH (11:41)
[2023-11-30 12:16] LABS: GLUCOMETER DEV NAME(LOC) ICUN.5; GLUCOSE,POINT OF CARE 121 MG/DL (70-110)
[2023-11-30 20:30] LABS: GLUCOMETER DEV NAME(LOC) ICUN.5; GLUCOSE,POINT OF CARE 230 MG/DL (70-110)
[2023-12-01] VITALS (29 sets, daily range): BP systolic 93–156; BP diastolic 47–99; PULSE 53–110; RESP 22–32; TEMP 97.8–98.5; O2SAT 88–97
[2023-12-01 00:41] LABS: GLUCOMETER DEV NAME(LOC) ICU.S6; GLUCOSE,POINT OF CARE 94 MG/DL (70-110)
[2023-12-01] MEDS ORDERED: SODIUM CHLORIDE 0.9% 0 ML IV ONE (01:05)
[2023-12-01 06:01] LABS: BASOPHILS % (AUTO) 0.6 % (0.0-2.0); EOSINOPHILS % (AUTO) 7.5 % (1.0-6.0); HEMATOCRIT 34.8 % (36-46); HEMOGLOBIN 11.1 g/dL (12.0-16.0); LYMPHOCYTES # (AUTO) 1.3 K/uL (1.0-4.8); LYMPHOCYTES % (AUTO) 15.4 % (22.0-44.0); MEAN CORPUSCULAR HEMOGLOBIN 27.5 pg (26.0-34.0); MEAN CORPUSCULAR HGB CONC 31.7 G/dL (31.0-37.0); MEAN CORPUSCULAR VOLUME 87 fL (80-100); MONOCYTES # (AUTO) 0.8 K/uL (0.1-1.0); NEUTROPHILS # (AUTO) 5.5 K/uL (1.8-7.7); NEUTROPHILS % (AUTO) 66.5 % (40.0-70.0); PLATELET COUNT (AUTO) 131 K/uL (150-450); RED BLOOD CELL COUNT(AUTO) 4.02 MIL/uL (4.00-5.20); RED CELL DISTRIBUTION WIDTH 17.8 % (11.5-14.5); WHITE BLOOD COUNT (AUTO) 8.3 K/uL (4.5-11.0)
[2023-12-01 06:02] LABS: ALBUMIN 2.5 g/dL (3.4-5.0); BILIRUBIN,TOTAL 0.5 mg/dL (0.1-1.0); CALCIUM, TOTAL 9.1 mg/dL (8.8-10.5); CREATININE 1.18 mg/dL (0.60-1.30); POTASSIUM 4.5 mmol/L (3.5-5.1); TOTAL PROTEIN, SERUM 6.9 g/dL (6.4-8.2)
[2023-12-01 06:20] LABS: GLUCOMETER DEV NAME(LOC) ICUN.5; GLUCOSE,POINT OF CARE 100 MG/DL (70-110)
[2023-12-01] MEDS: PANTOPRAZOLE SODIUM 40 MG/VIAL IVP SCH (10:09)
[2023-12-01] MEDS: AmLODIPine BESYLATE 5 MG TABLET PO ONE (10:10)
[2023-12-01 12:01] LABS: GLUCOMETER DEV NAME(LOC) ICUN.5; GLUCOSE,POINT OF CARE 161 MG/DL (70-110)
[2023-12-01 17:15] LABS: GLUCOMETER DEV NAME(LOC) ICU.S6; GLUCOSE,POINT OF CARE 129 MG/DL (70-110)
[2023-12-02] VITALS (30 sets, daily range): BP systolic 99–141; BP diastolic 46–57; PULSE 46–95; RESP 13–28; TEMP 97.3–98.3; O2SAT 86–93
[2023-12-02 03:06] LABS: GLUCOMETER DEV NAME(LOC) ICU.S6; GLUCOSE,POINT OF CARE 86 MG/DL (70-110)
[2023-12-02 05:45] LABS: BASOPHILS % (AUTO) 0.8 % (0.0-2.0); EOSINOPHILS % (AUTO) 13.4 % (1.0-6.0); HEMATOCRIT 36.3 % (36-46); HEMOGLOBIN 11.3 g/dL (12.0-16.0); LYMPHOCYTES # (AUTO) 1.8 K/uL (1.0-4.8); LYMPHOCYTES % (AUTO) 21.9 % (22.0-44.0); MEAN CORPUSCULAR HEMOGLOBIN 27.1 pg (26.0-34.0); MEAN CORPUSCULAR HGB CONC 31.3 G/dL (31.0-37.0); MEAN CORPUSCULAR VOLUME 87 fL (80-100); MONOCYTES # (AUTO) 0.7 K/uL (0.1-1.0); MONOCYTES % (AUTO) 8.6 % (2.0-9.0); NEUTROPHILS # (AUTO) 4.5 K/uL (1.8-7.7); NEUTROPHILS % (AUTO) 55.3 % (40.0-70.0); PLATELET COUNT (AUTO) 127 K/uL (150-450); RED BLOOD CELL COUNT(AUTO) 4.19 MIL/uL (4.00-5.20); RED CELL DISTRIBUTION WIDTH 17.7 % (11.5-14.5); WHITE BLOOD COUNT (AUTO) 8.1 K/uL (4.5-11.0)
[2023-12-02 06:03] LABS: CALCIUM, TOTAL 9.2 mg/dL (8.8-10.5); CREATININE 1.19 mg/dL (0.60-1.30); MAGNESIUM 1.6 mg/dL (1.80-2.40); PHOSPHORUS 5.1 mg/dL (2.5-4.9); POTASSIUM 4.4 mmol/L (3.5-5.1)
[2023-12-02 07:45] LABS: GLUCOMETER DEV NAME(LOC) ICUN.5; GLUCOSE,POINT OF CARE 76 MG/DL (70-110)
[2023-12-02] MEDS: AmLODIPine BESYLATE 5 MG TABLET GT SCH (08:06)
[2023-12-02] MEDS ORDERED: PANTOPRAZOLE SODIUM 40 MG/VIAL IVP SCH (09:00)
[2023-12-02] MEDS ORDERED: MIDAZOLAM HCL 5 MG/ML VIAL ONE (10:09)
[2023-12-02] MEDS ORDERED: MIDAZOLAM HCL 2 MG/2 ML VIAL IVP ONE (10:30)
[2023-12-02] MEDS: MIDAZOLAM HCL 5 MG/ML VIAL IVP ONE (10:38)
[2023-12-02] MEDS: CeFAZolin 1 GM/DEXTROSE 50 ML IV ONE (11:56)
[2023-12-02] MEDS: MAGNESIUM SULFATE 3 GM in DEXTROSE 5%-WATER 100 ML IV ONE (12:32)
[2023-12-02 19:31] LABS: GLUCOMETER DEV NAME(LOC) ICU.S6; GLUCOSE,POINT OF CARE 87 MG/DL (70-110)
[2023-12-02 19:31] LABS: GLUCOMETER DEV NAME(LOC) ICU.S6; GLUCOSE,POINT OF CARE 93 MG/DL (70-110)
[2023-12-02 23:35] LABS: GLUCOMETER DEV NAME(LOC) ICU.S6; GLUCOSE,POINT OF CARE 78 MG/DL (70-110)
[2023-12-03] VITALS (26 sets, daily range): BP systolic 96–163; BP diastolic 42–65; PULSE 76–120; RESP 16–36; TEMP 98.4–99; O2SAT 6–96
[2023-12-03] MEDS ORDERED: SODIUM CHLORIDE 0.9% 250 ML IV ONE (01:32)
[2023-12-03 06:19] LABS: BASOPHILS % (AUTO) 0.5 % (0.0-2.0); EOSINOPHILS % (AUTO) 14.5 % (1.0-6.0); HEMATOCRIT 35.8 % (36-46); HEMOGLOBIN 11.1 g/dL (12.0-16.0); LYMPHOCYTES # (AUTO) 1.2 K/uL (1.0-4.8); LYMPHOCYTES % (AUTO) 13.8 % (22.0-44.0); MEAN CORPUSCULAR HGB CONC 31.2 G/dL (31.0-37.0); MEAN CORPUSCULAR VOLUME 87 fL (80-100); MONOCYTES # (AUTO) 0.6 K/uL (0.1-1.0); MONOCYTES % (AUTO) 7.1 % (2.0-9.0); NEUTROPHILS # (AUTO) 5.5 K/uL (1.8-7.7); NEUTROPHILS % (AUTO) 64.1 % (40.0-70.0); PLATELET COUNT (AUTO) 104 K/uL (150-450); RED BLOOD CELL COUNT(AUTO) 4.13 MIL/uL (4.00-5.20); RED CELL DISTRIBUTION WIDTH 18.1 % (11.5-14.5); WHITE BLOOD COUNT (AUTO) 8.5 K/uL (4.5-11.0)
[2023-12-03 06:30] LABS: GLUCOMETER DEV NAME(LOC) ICUN.5; GLUCOSE,POINT OF CARE 94 MG/DL (70-110)
[2023-12-03 06:44] LABS: CALCIUM, TOTAL 8.7 mg/dL (8.8-10.5); CREATININE 1.12 mg/dL (0.60-1.30); MAGNESIUM 2.3 mg/dL (1.80-2.40); PHOSPHORUS 4.6 mg/dL (2.5-4.9); POTASSIUM 3.8 mmol/L (3.5-5.1)
[2023-12-03 11:01] LABS: ABG A-A DIFF O2 364.6 mmHg (10-20.0); ABG BASE EXCESS -6.3 mmol/L (-2.0-3.0); ABG CARBOXYHEMOGLOBIN 0.1 % (0.5-1.5); ABG HCO3 19.8 mmol/L (21.0-28.0); ABG METHEMOGLOBIN 0.1 % (0.0-1.5); ABG OXYGEN CONTENT 15.1 mL/dL (15.0-23.0); ABG OXYGEN SATURATION 90.2 % (94.0-98.0); ABG PCO2 34 mmHg (32.0-45.0); ABG PH 7.368 (7.350-7.450); ABG TOTAL HEMOGLOBIN 11.9 G/dL (12.0-16.0); O2 DEVICE,BLOOD GAS VENTILATOR (ROOM AIR); PEEP,BG 5 cm H2O; PO2, ARTERIAL BG 62.1 mmHg (83.0-108.0); SITE, BLOOD GAS ARTERIAL LINE; SOURCE, BLOOD GAS ARTERIAL; TEMPERATURE, FAHRENHEIT, BG 98.6 FAHREN (96.0-98.6); VT, ABG 430 ml
[2023-12-03] MEDS: FUROSEMIDE 20 MG/2 ML VIAL IVP SCH (20:08)
[2023-12-03 20:16] LABS: GLUCOMETER DEV NAME(LOC) ICUN.5; GLUCOSE,POINT OF CARE 134 MG/DL (70-110)
[2023-12-03 20:16] LABS: GLUCOMETER DEV NAME(LOC) ICU.S6; GLUCOSE,POINT OF CARE 119 MG/DL (70-110)
[2023-12-03] MEDS ORDERED: SODIUM CHLORIDE 0.9% 500 ML IV ONE (22:27)
[2023-12-04] VITALS (28 sets, daily range): BP systolic 106–143; BP diastolic 40–62; PULSE 71–97; RESP 15–32; TEMP 98.1–98.9; O2SAT 88–96
[2023-12-04 00:01] LABS: GLUCOMETER DEV NAME(LOC) ICUN.5; GLUCOSE,POINT OF CARE 130 MG/DL (70-110)
[2023-12-04 05:26] LABS: GLUCOMETER DEV NAME(LOC) ICUN.5; GLUCOSE,POINT OF CARE 119 MG/DL (70-110)
[2023-12-04 05:47] LABS: BASOPHILS % (AUTO) 0.5 % (0.0-2.0); EOSINOPHILS % (AUTO) 11.2 % (1.0-6.0); HEMATOCRIT 34.5 % (36-46); LYMPHOCYTES # (AUTO) 1.1 K/uL (1.0-4.8); LYMPHOCYTES % (AUTO) 11.9 % (22.0-44.0); MEAN CORPUSCULAR HEMOGLOBIN 27.5 pg (26.0-34.0); MEAN CORPUSCULAR HGB CONC 31.8 G/dL (31.0-37.0); MEAN CORPUSCULAR VOLUME 87 fL (80-100); MONOCYTES # (AUTO) 0.7 K/uL (0.1-1.0); MONOCYTES % (AUTO) 7.9 % (2.0-9.0); NEUTROPHILS # (AUTO) 6.2 K/uL (1.8-7.7); NEUTROPHILS % (AUTO) 68.5 % (40.0-70.0); PLATELET COUNT (AUTO) 98 K/uL (150-450); RED BLOOD CELL COUNT(AUTO) 3.98 MIL/uL (4.00-5.20)
[2023-12-04 05:53] LABS: CALCIUM, TOTAL 8.7 mg/dL (8.8-10.5); CREATININE 1.22 mg/dL (0.60-1.30); MAGNESIUM 2.1 mg/dL (1.80-2.40); PHOSPHORUS 4.8 mg/dL (2.5-4.9)
[2023-12-04 08:51] LABS: PROTHROMBIN TIME 10.9 SEC (9.4-11.6)
[2023-12-04 09:47] LABS: ABG CARBOXYHEMOGLOBIN 0.7 % (0.5-1.5); ABG OXYGEN CONTENT 14.1 mL/dL (15.0-23.0); ABG OXYGEN SATURATION 85.6 % (94.0-98.0); ABG OXYHEMOGLOBIN 84.1 % (94.0-98.0); ABG PCO2 38 mmHg (32.0-45.0); ABG PH 7.317 (7.350-7.450); ABG TOTAL HEMOGLOBIN 11.9 G/dL (12.0-16.0); PO2, ARTERIAL BG 55.9 mmHg (83.0-108.0); SOURCE, BLOOD GAS ARTERIAL; TEMPERATURE, FAHRENHEIT, BG 98.6 FAHREN (96.0-98.6)
[2023-12-04 09:50] LABS: ABG A-A DIFF O2 257.6 mmHg (10-20.0); O2 DEVICE,BLOOD GAS VENTILATOR (ROOM AIR); PEEP,BG 5 cm H2O; SITE, BLOOD GAS ARTERIAL LINE; VT, ABG 430 ml
[2023-12-04 17:21] LABS: GLUCOMETER DEV NAME(LOC) ICU.S6; GLUCOSE,POINT OF CARE 110 MG/DL (70-110)
[2023-12-04 17:21] LABS: GLUCOMETER DEV NAME(LOC) ICUN.5; GLUCOSE,POINT OF CARE 128 MG/DL (70-110)
[2023-12-04 19:35] LABS: GLUCOMETER DEV NAME(LOC) ICU.S6; GLUCOSE,POINT OF CARE 111 MG/DL (70-110)
[2023-12-04] MEDS: FUROSEMIDE 40 MG/4 ML VIAL IVP SCH (21:33)
[2023-12-05] VITALS (29 sets, daily range): BP systolic 105–134; BP diastolic 52–80; PULSE 68–94; RESP 19–30; TEMP 97.4–98.7; O2SAT 74–94
[2023-12-05 05:22] LABS: BASOPHILS % (AUTO) 0.5 % (0.0-2.0); EOSINOPHILS % (AUTO) 11.5 % (1.0-6.0); HEMOGLOBIN 11.1 g/dL (12.0-16.0); LYMPHOCYTES # (AUTO) 0.9 K/uL (1.0-4.8); LYMPHOCYTES % (AUTO) 10.9 % (22.0-44.0); MEAN CORPUSCULAR HEMOGLOBIN 27.6 pg (26.0-34.0); MEAN CORPUSCULAR HGB CONC 31.8 G/dL (31.0-37.0); MEAN CORPUSCULAR VOLUME 87 fL (80-100); MONOCYTES # (AUTO) 0.7 K/uL (0.1-1.0); MONOCYTES % (AUTO) 8.4 % (2.0-9.0); NEUTROPHILS # (AUTO) 5.4 K/uL (1.8-7.7); NEUTROPHILS % (AUTO) 68.7 % (40.0-70.0); PLATELET COUNT (AUTO) 91 K/uL (150-450); RED BLOOD CELL COUNT(AUTO) 4.04 MIL/uL (4.00-5.20); RED CELL DISTRIBUTION WIDTH 18.1 % (11.5-14.5); WHITE BLOOD COUNT (AUTO) 7.9 K/uL (4.5-11.0)
[2023-12-05 05:35] LABS: CALCIUM, TOTAL 8.4 mg/dL (8.8-10.5); CREATININE 1.25 mg/dL (0.60-1.30); POTASSIUM 3.7 mmol/L (3.5-5.1)
[2023-12-05 13:01] LABS: GLUCOMETER DEV NAME(LOC) ICUN.5; GLUCOSE,POINT OF CARE 134 MG/DL (70-110)
[2023-12-05 19:16] LABS: GLUCOMETER DEV NAME(LOC) ICUN.5; GLUCOSE,POINT OF CARE 143 MG/DL (70-110)
[2023-12-06] VITALS (27 sets, daily range): BP systolic 102–127; BP diastolic 61–80; PULSE 72–108; RESP 26–31; TEMP 97.4–99.5; O2SAT 88–95
[2023-12-06 06:16] LABS: GLUCOMETER DEV NAME(LOC) ICU.S6; GLUCOSE,POINT OF CARE 124 MG/DL (70-110)
[2023-12-06 06:16] LABS: GLUCOMETER DEV NAME(LOC) ICUN.5; GLUCOSE,POINT OF CARE 127 MG/DL (70-110)
[2023-12-06 06:31] LABS: BASOPHILS % (AUTO) 0.4 % (0.0-2.0); EOSINOPHILS % (AUTO) 10.6 % (1.0-6.0); HEMATOCRIT 33.2 % (36-46); HEMOGLOBIN 10.5 g/dL (12.0-16.0); LYMPHOCYTES % (AUTO) 12.1 % (22.0-44.0); MEAN CORPUSCULAR HEMOGLOBIN 27.8 pg (26.0-34.0); MEAN CORPUSCULAR HGB CONC 31.8 G/dL (31.0-37.0); MEAN CORPUSCULAR VOLUME 88 fL (80-100); MONOCYTES % (AUTO) 13.1 % (2.0-9.0); NEUTROPHILS % (AUTO) 63.8 % (40.0-70.0); PLATELET COUNT (AUTO) 94 K/uL (150-450); RED BLOOD CELL COUNT(AUTO) 3.79 MIL/uL (4.00-5.20); RED CELL DISTRIBUTION WIDTH 18.4 % (11.5-14.5); WHITE BLOOD COUNT (AUTO) 7.9 K/uL (4.5-11.0)
[2023-12-06 06:48] LABS: CREATININE 1.31 mg/dL (0.60-1.30); POTASSIUM 4.3 mmol/L (3.5-5.1)
[2023-12-06 11:56] LABS: GLUCOMETER DEV NAME(LOC) ICUN.5; GLUCOSE,POINT OF CARE 135 MG/DL (70-110)
[2023-12-06 18:10] LABS: GLUCOMETER DEV NAME(LOC) ICUN.5; GLUCOSE,POINT OF CARE 131 MG/DL (70-110)
[2023-12-07] VITALS (25 sets, daily range): BP systolic 93–149; BP diastolic 52–84; PULSE 72–104; RESP 25–36; TEMP 98.4–99; O2SAT 90–95
[2023-12-07 02:56] LABS: GLUCOMETER DEV NAME(LOC) ICUN.5; GLUCOSE,POINT OF CARE 136 MG/DL (70-110)
[2023-12-07 06:02] LABS: GLUCOMETER DEV NAME(LOC) ICUN.5; GLUCOSE,POINT OF CARE 138 MG/DL (70-110)
[2023-12-07 06:16] LABS: CALCIUM, TOTAL 8.9 mg/dL (8.8-10.5); CREATININE 1.51 mg/dL (0.60-1.30); POTASSIUM 3.6 mmol/L (3.5-5.1)
[2023-12-07 06:19] LABS: BASOPHILS % (AUTO) 0.6 % (0.0-2.0); EOSINOPHILS % (AUTO) 8.5 % (1.0-6.0); HEMATOCRIT 35.5 % (36-46); LYMPHOCYTES # (AUTO) 1.9 K/uL (1.0-4.8); LYMPHOCYTES % (AUTO) 19.7 % (22.0-44.0); MEAN CORPUSCULAR HEMOGLOBIN 27.4 pg (26.0-34.0); MEAN CORPUSCULAR VOLUME 89 fL (80-100); MONOCYTES # (AUTO) 1.5 K/uL (0.1-1.0); MONOCYTES % (AUTO) 15.8 % (2.0-9.0); NEUTROPHILS # (AUTO) 5.2 K/uL (1.8-7.7); NEUTROPHILS % (AUTO) 55.4 % (40.0-70.0); PLATELET COUNT (AUTO) 82 K/uL (150-450); RED BLOOD CELL COUNT(AUTO) 4.01 MIL/uL (4.00-5.20); RED CELL DISTRIBUTION WIDTH 18.4 % (11.5-14.5); WHITE BLOOD COUNT (AUTO) 9.5 K/uL (4.5-11.0)
[2023-12-07 11:26] LABS: GLUCOMETER DEV NAME(LOC) ICUN.5; GLUCOSE,POINT OF CARE 124 MG/DL (70-110)
[2023-12-07] MEDS ORDERED: SODIUM CHLORIDE 0.9% 250 ML IV ONE ×2 (15:51→22:22)
[2023-12-07] MEDS: DAPTOMYCIN 500 MG in SODIUM CHLORIDE 0.9% 50 ML IV SCH (17:00)
[2023-12-07 17:25] LABS: GLUCOMETER DEV NAME(LOC) ICU.S6; GLUCOSE,POINT OF CARE 187 MG/DL (70-110)
[2023-12-07 19:43] LABS: C.DIFF GDH ANTIGEN, Stool Negative (Negative); C.DIFF TOXINS A&B, Stool Negative (Negative)
[2023-12-07] MEDS ORDERED: DAPTOMYCIN 500 MG in SODIUM CHLORIDE 0.9% 50 ML IV SCH (22:00)
[2023-12-08] VITALS (29 sets, daily range): BP systolic 95–124; BP diastolic 55–68; PULSE 74–97; RESP 24–29; TEMP 97.4–98; O2SAT 91–97
[2023-12-08 00:25] LABS: GLUCOMETER DEV NAME(LOC) ICU.S6; GLUCOSE,POINT OF CARE 177 MG/DL (70-110)
[2023-12-08 00:46] LABS: GLUCOMETER DEV NAME(LOC) ICU.S6; GLUCOSE,POINT OF CARE 173 MG/DL (70-110)
[2023-12-08 06:10] LABS: GLUCOMETER DEV NAME(LOC) ICUN.5; GLUCOSE,POINT OF CARE 140 MG/DL (70-110)
[2023-12-08 06:13] LABS: BASOPHILS % (AUTO) 0.5 % (0.0-2.0); EOSINOPHILS % (AUTO) 7.3 % (1.0-6.0); HEMATOCRIT 36.1 % (36-46); HEMOGLOBIN 11.6 g/dL (12.0-16.0); LYMPHOCYTES % (AUTO) 11.7 % (22.0-44.0); MEAN CORPUSCULAR HEMOGLOBIN 27.7 pg (26.0-34.0); MEAN CORPUSCULAR HGB CONC 32.1 G/dL (31.0-37.0); MEAN CORPUSCULAR VOLUME 86 fL (80-100); MONOCYTES % (AUTO) 12.1 % (2.0-9.0); NEUTROPHILS # (AUTO) 5.7 K/uL (1.8-7.7); NEUTROPHILS % (AUTO) 68.4 % (40.0-70.0); PLATELET COUNT (AUTO) 105 K/uL (150-450); RED CELL DISTRIBUTION WIDTH 18.2 % (11.5-14.5); WHITE BLOOD COUNT (AUTO) 8.3 K/uL (4.5-11.0)
[2023-12-08 06:48] LABS: ALBUMIN 2.8 g/dL (3.4-5.0); BILIRUBIN,TOTAL 0.7 mg/dL (0.1-1.0); CALCIUM, TOTAL 9.3 mg/dL (8.8-10.5); CREATININE 1.45 mg/dL (0.60-1.30); POTASSIUM 3.6 mmol/L (3.5-5.1); TOTAL PROTEIN, SERUM 7.6 g/dL (6.4-8.2)
[2023-12-08 13:26] LABS: GLUCOMETER DEV NAME(LOC) ICU.S6; GLUCOSE,POINT OF CARE 163 MG/DL (70-110)
[2023-12-08 18:51] LABS: GLUCOMETER DEV NAME(LOC) ICU.S6; GLUCOSE,POINT OF CARE 136 MG/DL (70-110)
[2023-12-08] MEDS: DAPTOMYCIN 500 MG in SODIUM CHLORIDE 0.9% 50 ML IV SCH (21:15)
[2023-12-09] VITALS (33 sets, daily range): BP systolic 97–128; BP diastolic 55–68; PULSE 82–101; RESP 26–28; TEMP 98.3–99; O2SAT 90–97
[2023-12-09 01:21] LABS: GLUCOMETER DEV NAME(LOC) ICU.S6; GLUCOSE,POINT OF CARE 147 MG/DL (70-110)
[2023-12-09 07:01] LABS: GLUCOMETER DEV NAME(LOC) ICU.S6; GLUCOSE,POINT OF CARE 148 MG/DL (70-110)
[2023-12-09 07:17] LABS: BASOPHILS % (AUTO) 0.5 % (0.0-2.0); EOSINOPHILS % (AUTO) 8.6 % (1.0-6.0); HEMATOCRIT 35.7 % (36-46); HEMOGLOBIN 11.3 g/dL (12.0-16.0); LYMPHOCYTES # (AUTO) 1.4 K/uL (1.0-4.8); MEAN CORPUSCULAR HEMOGLOBIN 27.3 pg (26.0-34.0); MEAN CORPUSCULAR HGB CONC 31.7 G/dL (31.0-37.0); MEAN CORPUSCULAR VOLUME 86 fL (80-100); MONOCYTES # (AUTO) 1.1 K/uL (0.1-1.0); MONOCYTES % (AUTO) 13.3 % (2.0-9.0); NEUTROPHILS # (AUTO) 4.9 K/uL (1.8-7.7); NEUTROPHILS % (AUTO) 60.6 % (40.0-70.0); PLATELET COUNT (AUTO) 101 K/uL (150-450); RED BLOOD CELL COUNT(AUTO) 4.14 MIL/uL (4.00-5.20); RED CELL DISTRIBUTION WIDTH 18.8 % (11.5-14.5); WHITE BLOOD COUNT (AUTO) 8.1 K/uL (4.5-11.0)
[2023-12-09 07:19] LABS: CALCIUM, TOTAL 8.7 mg/dL (8.8-10.5); CREATININE 1.62 mg/dL (0.60-1.30); POTASSIUM 3.6 mmol/L (3.5-5.1)
[2023-12-09 07:28] LABS: MAGNESIUM 1.6 mg/dL (1.80-2.40); PHOSPHORUS 4.9 mg/dL (2.5-4.9)
[2023-12-09] MEDS: AmLODIPine BESYLATE 10 MG TABLET GT SCH (08:08)
[2023-12-09 10:25] LABS: ABG BASE EXCESS -6.6 mmol/L (-2.0-3.0); ABG CARBOXYHEMOGLOBIN 0.2 % (0.5-1.5); ABG HCO3 19.3 mmol/L (21.0-28.0); ABG OXYGEN CONTENT 14.3 mL/dL (15.0-23.0); ABG OXYHEMOGLOBIN 88.8 % (94.0-98.0); ABG PCO2 39 mmHg (32.0-45.0); ABG PH 7.315 (7.350-7.450); ABG TOTAL HEMOGLOBIN 11.4 G/dL (12.0-16.0); ALLEN TEST, BLOOD GAS Positive; PO2, ARTERIAL BG 62.6 mmHg (83.0-108.0); SITE, BLOOD GAS RT RADIAL; SOURCE, BLOOD GAS ARTERIAL; TEMPERATURE, FAHRENHEIT, BG 98.2 FAHREN (96.0-98.6)
[2023-12-09 10:26] LABS: O2 DEVICE,BLOOD GAS VENTILATOR (ROOM AIR); PEEP,BG 8 cm H2O; VT, ABG 430 ml
[2023-12-09 17:50] LABS: GLUCOMETER DEV NAME(LOC) ICU.S6; GLUCOSE,POINT OF CARE 142 MG/DL (70-110)
[2023-12-09 17:50] LABS: GLUCOMETER DEV NAME(LOC) ICUN.5; GLUCOSE,POINT OF CARE 167 MG/DL (70-110)
[2023-12-09] MEDS ORDERED: SODIUM CHLORIDE 0.9% 250 ML IV ONE (21:06)
[2023-12-10] VITALS (24 sets, daily range): BP systolic 107–125; BP diastolic 49–69; PULSE 78–108; RESP 26–30; TEMP 97.8–100.1; O2SAT 91–98
[2023-12-10 01:26] LABS: GLUCOMETER DEV NAME(LOC) ICU.S6; GLUCOSE,POINT OF CARE 175 MG/DL (70-110)
[2023-12-10 02:26] LABS: GLUCOMETER DEV NAME(LOC) ICUN.5; GLUCOSE,POINT OF CARE 163 MG/DL (70-110)
[2023-12-10 06:57] LABS: CALCIUM, TOTAL 8.8 mg/dL (8.8-10.5); CREATININE 1.7 mg/dL (0.60-1.30); MAGNESIUM 1.6 mg/dL (1.80-2.40); PHOSPHORUS 5.1 mg/dL (2.5-4.9); POTASSIUM 3.7 mmol/L (3.5-5.1)
[2023-12-10] MEDS ORDERED: MAGNESIUM SULFATE 1 GM in DEXTROSE 5%-WATER 50 ML IV ONE (09:30)
[2023-12-10] MEDS: MAGNESIUM OXIDE 400 MG TABLET PO ONE (11:05)
[2023-12-10 11:16] LABS: GLUCOMETER DEV NAME(LOC) ICU.S6; GLUCOSE,POINT OF CARE 170 MG/DL (70-110)
[2023-12-10 11:16] LABS: GLUCOMETER DEV NAME(LOC) ICU.S6; GLUCOSE,POINT OF CARE 161 MG/DL (70-110)
[2023-12-10 19:26] LABS: GLUCOMETER DEV NAME(LOC) ICUN.5; GLUCOSE,POINT OF CARE 197 MG/DL (70-110)
[2023-12-10 19:30] LABS: GLUCOMETER DEV NAME(LOC) ICU.S6; GLUCOSE,POINT OF CARE 191 MG/DL (70-110)
[2023-12-11] VITALS (23 sets, daily range): BP systolic 97–138; BP diastolic 47–87; PULSE 68–101; RESP 26–29; TEMP 97.6–98.8; O2SAT 88–95
[2023-12-11 05:26] LABS: GLUCOMETER DEV NAME(LOC) ICUN.5; GLUCOSE,POINT OF CARE 177 MG/DL (70-110)
[2023-12-11 05:59] LABS: BASOPHILS % (AUTO) 0.3 % (0.0-2.0); EOSINOPHILS % (AUTO) 5.5 % (1.0-6.0); HEMATOCRIT 35.1 % (36-46); LYMPHOCYTES # (AUTO) 1.6 K/uL (1.0-4.8); LYMPHOCYTES % (AUTO) 13.3 % (22.0-44.0); MEAN CORPUSCULAR HGB CONC 31.3 G/dL (31.0-37.0); MEAN CORPUSCULAR VOLUME 86 fL (80-100); MONOCYTES # (AUTO) 1.2 K/uL (0.1-1.0); MONOCYTES % (AUTO) 9.4 % (2.0-9.0); NEUTROPHILS # (AUTO) 8.7 K/uL (1.8-7.7); NEUTROPHILS % (AUTO) 71.5 % (40.0-70.0); PLATELET COUNT (AUTO) 115 K/uL (150-450); RED BLOOD CELL COUNT(AUTO) 4.07 MIL/uL (4.00-5.20); RED CELL DISTRIBUTION WIDTH 18.5 % (11.5-14.5); WHITE BLOOD COUNT (AUTO) 12.2 K/uL (4.5-11.0)
[2023-12-11 06:20] LABS: CALCIUM, TOTAL 8.9 mg/dL (8.8-10.5); CREATININE 1.67 mg/dL (0.60-1.30); MAGNESIUM 1.6 mg/dL (1.80-2.40); PHOSPHORUS 4.7 mg/dL (2.5-4.9); POTASSIUM 3.5 mmol/L (3.5-5.1)
[2023-12-11 07:55] LABS: GLUCOMETER DEV NAME(LOC) ICU.S6; GLUCOSE,POINT OF CARE 152 MG/DL (70-110)
[2023-12-11] MEDS: POTASSIUM CHLORIDE 10% 40 MEQ/30 ML LIQUID UDCUP NG SCH ×2 (08:41→21:05)
[2023-12-11] MEDS: FUROSEMIDE 40 MG/4 ML VIAL IVP SCH ×2 (08:42→21:05)
[2023-12-11] MEDS: MAGNESIUM SULFATE 2 GM/WATER 50 ML IV ONE (10:17)
[2023-12-11] MEDS: ACETYLCYSTEINE 10% 100 MG/ML 4 ML NEB SOLUTION NEB SCH (14:57)
[2023-12-11 16:46] LABS: GLUCOMETER DEV NAME(LOC) ICU.S6; GLUCOSE,POINT OF CARE 189 MG/DL (70-110)
[2023-12-11 16:50] LABS: GLUCOMETER DEV NAME(LOC) ICUN.5; GLUCOSE,POINT OF CARE 156 MG/DL (70-110)
[2023-12-11 20:30] LABS: GLUCOMETER DEV NAME(LOC) ICUN.5; GLUCOSE,POINT OF CARE 186 MG/DL (70-110)
[2023-12-11] MEDS ORDERED: SODIUM CHLORIDE 0.9% 250 ML IV ONE (21:17)
[2023-12-12] VITALS (29 sets, daily range): BP systolic 128–139; BP diastolic 47–64; PULSE 80–100; RESP 18–29; TEMP 98.5–99; O2SAT 87–99
[2023-12-12 01:55] LABS: GLUCOMETER DEV NAME(LOC) ICU.S6; GLUCOSE,POINT OF CARE 201 MG/DL (70-110)
[2023-12-12 06:58] LABS: BASOPHILS % (AUTO) 0.4 % (0.0-2.0); EOSINOPHILS % (AUTO) 6.1 % (1.0-6.0); HEMATOCRIT 32.5 % (36-46); HEMOGLOBIN 10.4 g/dL (12.0-16.0); LYMPHOCYTES # (AUTO) 1.1 K/uL (1.0-4.8); LYMPHOCYTES % (AUTO) 10.4 % (22.0-44.0); MEAN CORPUSCULAR HEMOGLOBIN 27.3 pg (26.0-34.0); MEAN CORPUSCULAR HGB CONC 31.9 G/dL (31.0-37.0); MEAN CORPUSCULAR VOLUME 86 fL (80-100); MONOCYTES # (AUTO) 0.9 K/uL (0.1-1.0); MONOCYTES % (AUTO) 8.8 % (2.0-9.0); NEUTROPHILS # (AUTO) 7.9 K/uL (1.8-7.7); NEUTROPHILS % (AUTO) 74.3 % (40.0-70.0); PLATELET COUNT (AUTO) 133 K/uL (150-450); RED BLOOD CELL COUNT(AUTO) 3.79 MIL/uL (4.00-5.20); RED CELL DISTRIBUTION WIDTH 18.5 % (11.5-14.5); WHITE BLOOD COUNT (AUTO) 10.7 K/uL (4.5-11.0)
[2023-12-12 07:12] LABS: ALBUMIN 2.3 g/dL (3.4-5.0); BILIRUBIN,TOTAL 0.6 mg/dL (0.1-1.0); CALCIUM, TOTAL 9.1 mg/dL (8.8-10.5); CREATININE 1.73 mg/dL (0.60-1.30)
[2023-12-12 07:20] LABS: GLUCOMETER DEV NAME(LOC) ICUN.5; GLUCOSE,POINT OF CARE 181 MG/DL (70-110)
[2023-12-12] MEDS: POTASSIUM CHL 10 MEQ/WATER 50 ML IV SCH ×2 (08:38→21:22)
[2023-12-12 08:48] LABS: MAGNESIUM 1.9 mg/dL (1.80-2.40); PHOSPHORUS 4.6 mg/dL (2.5-4.9)
[2023-12-12 17:21] LABS: GLUCOMETER DEV NAME(LOC) ICUN.5; GLUCOSE,POINT OF CARE 197 MG/DL (70-110)
[2023-12-13] VITALS (30 sets, daily range): BP systolic 102–148; BP diastolic 52–75; PULSE 58–99; RESP 17–35; TEMP 97.9–98.5; O2SAT 82–98
[2023-12-13] MEDS ORDERED: SODIUM CHLORIDE 0.9% 500 ML IV ONE (02:01)
[2023-12-13 05:41] LABS: GLUCOMETER DEV NAME(LOC) ICU.S6; GLUCOSE,POINT OF CARE 183 MG/DL (70-110)
[2023-12-13 06:32] LABS: HEMOGLOBIN 10.9 g/dL (12.0-16.0); MEAN CORPUSCULAR HEMOGLOBIN 27.6 pg (26.0-34.0); MEAN CORPUSCULAR VOLUME 86 fL (80-100); PLATELET COUNT (AUTO) 146 K/uL (150-450); RED BLOOD CELL COUNT(AUTO) 3.95 MIL/uL (4.00-5.20); RED CELL DISTRIBUTION WIDTH 18.9 % (11.5-14.5); WHITE BLOOD COUNT (AUTO) 9.3 K/uL (4.5-11.0)
[2023-12-13 06:41] LABS: GLUCOMETER DEV NAME(LOC) ICU.S6; GLUCOSE,POINT OF CARE 194 MG/DL (70-110)
[2023-12-13 06:49] LABS: CALCIUM, TOTAL 9.5 mg/dL (8.8-10.5); CREATININE 1.63 mg/dL (0.60-1.30); MAGNESIUM 1.8 mg/dL (1.80-2.40); PHOSPHORUS 4.8 mg/dL (2.5-4.9); POTASSIUM 3.7 mmol/L (3.5-5.1)
[2023-12-13 07:28] LABS: BAND NEUTROPHILS % (MANUAL) 4 % (0-5); EOSINOPHILS % (MANUAL) 5 % (1-6); LYMPHOCYTES % (MANUAL) 20 % (22-44); MONOCYTES % (MANUAL) 12 % (2-9); RBC MORPHOLOGY COMMENT NORMAL RBC MORPH; SEGMENTED NEUTROPHILS % 59 % (40-70); TOTAL CELLS COUNTED 100
[2023-12-13] MEDS: POTASSIUM CHLORIDE 10% 40 MEQ/30 ML LIQUID UDCUP NG SCH (09:16)
[2023-12-13 11:56] LABS: GLUCOMETER DEV NAME(LOC) ICU.S6; GLUCOSE,POINT OF CARE 209 MG/DL (70-110)
[2023-12-13 16:15] LABS: GLUCOMETER DEV NAME(LOC) ICUN.5; GLUCOSE,POINT OF CARE 190 MG/DL (70-110)
[2023-12-13] MEDS ORDERED: SODIUM CHLORIDE 0.9% 250 ML IV ONE (18:15)
[2023-12-13 23:46] LABS: GLUCOMETER DEV NAME(LOC) ICUN.5; GLUCOSE,POINT OF CARE 182 MG/DL (70-110)
[2023-12-14] VITALS (29 sets, daily range): BP systolic 107–131; BP diastolic 47–73; PULSE 76–103; RESP 26–27; TEMP 98.2–100; O2SAT 87–93
[2023-12-14 04:21] LABS: GLUCOMETER DEV NAME(LOC) ICUN.5; GLUCOSE,POINT OF CARE 208 MG/DL (70-110)
[2023-12-14 06:55] LABS: BASOPHILS % (AUTO) 0.6 % (0.0-2.0); HEMATOCRIT 33.4 % (36-46); HEMOGLOBIN 10.7 g/dL (12.0-16.0); LYMPHOCYTES # (AUTO) 1.6 K/uL (1.0-4.8); LYMPHOCYTES % (AUTO) 16.6 % (22.0-44.0); MEAN CORPUSCULAR HEMOGLOBIN 27.3 pg (26.0-34.0); MEAN CORPUSCULAR HGB CONC 31.9 G/dL (31.0-37.0); MEAN CORPUSCULAR VOLUME 86 fL (80-100); MONOCYTES % (AUTO) 10.6 % (2.0-9.0); NEUTROPHILS # (AUTO) 6.3 K/uL (1.8-7.7); NEUTROPHILS % (AUTO) 64.2 % (40.0-70.0); PLATELET COUNT (AUTO) 145 K/uL (150-450); RED CELL DISTRIBUTION WIDTH 18.9 % (11.5-14.5); WHITE BLOOD COUNT (AUTO) 9.8 K/uL (4.5-11.0)
[2023-12-14 07:05] LABS: GLUCOMETER DEV NAME(LOC) ICUN.5; GLUCOSE,POINT OF CARE 192 MG/DL (70-110)
[2023-12-14 07:12] LABS: CALCIUM, TOTAL 9.4 mg/dL (8.8-10.5); CREATININE 1.81 mg/dL (0.60-1.30); MAGNESIUM 1.9 mg/dL (1.80-2.40); POTASSIUM 4.1 mmol/L (3.5-5.1)
[2023-12-14] MEDS: POTASSIUM CHLORIDE 10% 40 MEQ/30 ML LIQUID UDCUP NG SCH (08:32)
[2023-12-14] MEDS: FUROSEMIDE 40 MG/4 ML VIAL IVP SCH (08:32)
[2023-12-14 11:36] LABS: GLUCOMETER DEV NAME(LOC) ICUN.5; GLUCOSE,POINT OF CARE 170 MG/DL (70-110)
[2023-12-14 12:51] LABS: GLUCOMETER DEV NAME(LOC) ICUN.5; GLUCOSE,POINT OF CARE 200 MG/DL (70-110)
[2023-12-14 18:46] LABS: GLUCOMETER DEV NAME(LOC) ICUN.5; GLUCOSE,POINT OF CARE 228 MG/DL (70-110)
[2023-12-15] VITALS (25 sets, daily range): BP systolic 95–130; BP diastolic 46–74; PULSE 14–95; RESP 26–31; TEMP 98.8–99.7; O2SAT 85–92
[2023-12-15 05:59] LABS: BASOPHILS % (AUTO) 0.5 % (0.0-2.0); EOSINOPHILS % (AUTO) 7.6 % (1.0-6.0); HEMOGLOBIN 10.5 g/dL (12.0-16.0); LYMPHOCYTES # (AUTO) 1.4 K/uL (1.0-4.8); LYMPHOCYTES % (AUTO) 11.5 % (22.0-44.0); MEAN CORPUSCULAR HEMOGLOBIN 27.2 pg (26.0-34.0); MEAN CORPUSCULAR VOLUME 85 fL (80-100); MONOCYTES # (AUTO) 1.1 K/uL (0.1-1.0); MONOCYTES % (AUTO) 8.7 % (2.0-9.0); NEUTROPHILS # (AUTO) 8.9 K/uL (1.8-7.7); NEUTROPHILS % (AUTO) 71.7 % (40.0-70.0); PLATELET COUNT (AUTO) 154 K/uL (150-450); RED BLOOD CELL COUNT(AUTO) 3.88 MIL/uL (4.00-5.20); RED CELL DISTRIBUTION WIDTH 18.7 % (11.5-14.5); WHITE BLOOD COUNT (AUTO) 12.4 K/uL (4.5-11.0)
[2023-12-15 06:00] LABS: GLUCOMETER DEV NAME(LOC) ICU.S6; GLUCOSE,POINT OF CARE 192 MG/DL (70-110)
[2023-12-15 06:28] LABS: CALCIUM, TOTAL 9.1 mg/dL (8.8-10.5); CREATININE 1.74 mg/dL (0.60-1.30); MAGNESIUM 1.6 mg/dL (1.80-2.40)
[2023-12-15 07:21] LABS: GLUCOMETER DEV NAME(LOC) ICUN.5; GLUCOSE,POINT OF CARE 214 MG/DL (70-110)
[2023-12-15] MEDS: INSULIN GLARGINE,HUM.REC.ANLOG 100 UNITS/ML SQ SCH (09:00)
[2023-12-15] MEDS ORDERED: SODIUM CHLORIDE 0.9% 250 ML IV ONE (12:28)
[2023-12-15 13:36] LABS: GLUCOMETER DEV NAME(LOC) ICU.S6; GLUCOSE,POINT OF CARE 178 MG/DL (70-110)
[2023-12-15 13:45] LABS: GLUCOMETER DEV NAME(LOC) ICUN.5; GLUCOSE,POINT OF CARE 201 MG/DL (70-110)
[2023-12-15 17:03] LABS: ABG BASE EXCESS -4.1 mmol/L (-2.0-3.0); ABG CARBOXYHEMOGLOBIN 0.5 % (0.5-1.5); ABG HCO3 21.2 mmol/L (21.0-28.0); ABG OXYGEN CONTENT 13.6 mL/dL (15.0-23.0); ABG OXYGEN SATURATION 85.1 % (94.0-98.0); ABG OXYHEMOGLOBIN 84.7 % (94.0-98.0); ABG PCO2 39 mmHg (32.0-45.0); ABG PH 7.356 (7.350-7.450); ABG TOTAL HEMOGLOBIN 11.4 G/dL (12.0-16.0); ALLEN TEST, BLOOD GAS Positive; PO2, ARTERIAL BG 53.9 mmHg (83.0-108.0); SITE, BLOOD GAS LFT RADIAL; SOURCE, BLOOD GAS ARTERIAL; TEMPERATURE, FAHRENHEIT, BG 99.4 FAHREN (96.0-98.6)
[2023-12-15 17:04] LABS: O2 DEVICE,BLOOD GAS VENTILATOR (ROOM AIR); PEEP,BG 5 cm H2O; VT, ABG 430 ml
[2023-12-15 19:26] LABS: GLUCOMETER DEV NAME(LOC) ICU.S6; GLUCOSE,POINT OF CARE 204 MG/DL (70-110)
[2023-12-16] VITALS (29 sets, daily range): BP systolic 101–148; BP diastolic 44–74; PULSE 90–118; RESP 26–34; TEMP 99.6–102.3; O2SAT 88–93
[2023-12-16 05:45] LABS: GLUCOMETER DEV NAME(LOC) ICUN.5; GLUCOSE,POINT OF CARE 204 MG/DL (70-110)
[2023-12-16 06:15] LABS: GLUCOMETER DEV NAME(LOC) ICU.S6; GLUCOSE,POINT OF CARE 214 MG/DL (70-110)
[2023-12-16 06:21] LABS: BASOPHILS % (AUTO) 0.3 % (0.0-2.0); EOSINOPHILS % (AUTO) 5.9 % (1.0-6.0); HEMATOCRIT 33.8 % (36-46); HEMOGLOBIN 10.6 g/dL (12.0-16.0); LYMPHOCYTES # (AUTO) 0.9 K/uL (1.0-4.8); LYMPHOCYTES % (AUTO) 5.4 % (22.0-44.0); MEAN CORPUSCULAR HGB CONC 31.3 G/dL (31.0-37.0); MEAN CORPUSCULAR VOLUME 86 fL (80-100); MONOCYTES # (AUTO) 1.2 K/uL (0.1-1.0); MONOCYTES % (AUTO) 7.3 % (2.0-9.0); NEUTROPHILS # (AUTO) 13.7 K/uL (1.8-7.7); NEUTROPHILS % (AUTO) 81.1 % (40.0-70.0); PLATELET COUNT (AUTO) 143 K/uL (150-450); RED BLOOD CELL COUNT(AUTO) 3.92 MIL/uL (4.00-5.20); RED CELL DISTRIBUTION WIDTH 18.9 % (11.5-14.5); WHITE BLOOD COUNT (AUTO) 16.9 K/uL (4.5-11.0)
[2023-12-16 06:45] LABS: ALBUMIN 2.2 g/dL (3.4-5.0); BILIRUBIN,TOTAL 0.5 mg/dL (0.1-1.0); CALCIUM, TOTAL 8.6 mg/dL (8.8-10.5); CREATININE 1.7 mg/dL (0.60-1.30); POTASSIUM 4.2 mmol/L (3.5-5.1); TOTAL PROTEIN, SERUM 7.2 g/dL (6.4-8.2)
[2023-12-16 09:01] LABS: GLUCOMETER DEV NAME(LOC) ICUN.5; GLUCOSE,POINT OF CARE 231 MG/DL (70-110)
[2023-12-16 09:02] LABS: ABG BASE EXCESS -5.4 mmol/L (-2.0-3.0); ABG CARBOXYHEMOGLOBIN 0.1 % (0.5-1.5); ABG HCO3 20.1 mmol/L (21.0-28.0); ABG METHEMOGLOBIN 0.2 % (0.0-1.5); ABG OXYGEN CONTENT 13.8 mL/dL (15.0-23.0); ABG OXYGEN SATURATION 87.3 % (94.0-98.0); ABG PCO2 43 mmHg (32.0-45.0); ABG PH 7.308 (7.350-7.450); ABG TOTAL HEMOGLOBIN 11.3 G/dL (12.0-16.0); PO2, ARTERIAL BG 61.9 mmHg (83.0-108.0); SOURCE, BLOOD GAS ARTERIAL; TEMPERATURE, FAHRENHEIT, BG 100.5 FAHREN (96.0-98.6)
[2023-12-16 11:51] LABS: ALLEN TEST, BLOOD GAS Positive; SITE, BLOOD GAS LFT RADIAL
[2023-12-16 11:52] LABS: ABG A-A DIFF O2 389.4 mmHg (10-20.0)
[2023-12-16 11:53] LABS: O2 DEVICE,BLOOD GAS VENTILATOR (ROOM AIR); PEEP,BG 8 cm H2O; VT, ABG 430 ml
[2023-12-16] MEDS: *CLINICAL-MEROPENEM DOSING CLINICAL ONE (13:50)
[2023-12-16] MEDS: MEROPENEM 1 GM in SODIUM CHLORIDE 0.9% 100 ML IV SCH (14:55)
[2023-12-16] MEDS: DAPTOMYCIN 500 MG in SODIUM CHLORIDE 0.9% 50 ML IV SCH (17:16)
[2023-12-16] MEDS: MetroNIDAZOLE 500 MG TABLET PO SCH (17:16)
[2023-12-16 17:26] LABS: GLUCOMETER DEV NAME(LOC) ICUN.5; GLUCOSE,POINT OF CARE 260 MG/DL (70-110)
[2023-12-16 18:20] LABS: GLUCOMETER DEV NAME(LOC) ICUN.5; GLUCOSE,POINT OF CARE 238 MG/DL (70-110)
[2023-12-16 21:06] LABS: GLUCOMETER DEV NAME(LOC) ICUN.5; GLUCOSE,POINT OF CARE 227 MG/DL (70-110)
[2023-12-16] MEDS: NOREPINEPHRINE 8 MG/0.9 % NACL 250 ML IV PRN (22:24)
[2023-12-17] VITALS (26 sets, daily range): BP systolic 109–139; BP diastolic 51–63; PULSE 13–115; RESP 24–31; TEMP 100.5–101.3; O2SAT 88–95
[2023-12-17 04:19] LABS: APPEARANCE,URINE CLEAR (CLEAR); BILIRUBIN,URINE NEGATIVE (NEGATIVE); COLOR,URINE YELLOW (YELLOW); GLUCOSE, URINE (UA) NEGATIVE (NEGATIVE); KETONES,URINE NEGATIVE (NEGATIVE); LEUKOCYTE ESTERASE ,URINE SMALL (NEGATIVE); NITRATE,URINE NEGATIVE (NEGATIVE); OCCULT BLOOD,URINE NEGATIVE (NEGATIVE); PROTEIN,URINE 30-70 mg/dL (NEGATIVE); SPECIFIC GRAVITIY, URINE 1.023 (1.003-1.030); UROBILINOGEN,URINE <=1.0 mg/dL (<=1.0)
[2023-12-17 04:27] LABS: BACTERIA,URINE Few /HPF (None Seen); RBC,URINE 0-2 /HPF (0-2); SQUAMOUS EPITHELIAL CELL,UR Few /LPF (None Seen)
[2023-12-17 04:41] LABS: C.DIFF GDH ANTIGEN, Stool Negative (Negative); C.DIFF TOXINS A&B, Stool Negative (Negative)
[2023-12-17] MEDS ORDERED: SODIUM CHLORIDE 0.9% 250 ML IV ONE ×2 (05:56→14:14)
[2023-12-17 06:01] LABS: BASOPHILS % (AUTO) 0.1 % (0.0-2.0); HEMATOCRIT 36.7 % (36-46); HEMOGLOBIN 11.5 g/dL (12.0-16.0); LYMPHOCYTES # (AUTO) 1.7 K/uL (1.0-4.8); LYMPHOCYTES % (AUTO) 7.3 % (22.0-44.0); MEAN CORPUSCULAR HEMOGLOBIN 27.2 pg (26.0-34.0); MEAN CORPUSCULAR HGB CONC 31.3 G/dL (31.0-37.0); MEAN CORPUSCULAR VOLUME 87 fL (80-100); MONOCYTES # (AUTO) 1.8 K/uL (0.1-1.0); MONOCYTES % (AUTO) 7.7 % (2.0-9.0); NEUTROPHILS % (AUTO) 78.9 % (40.0-70.0); PLATELET COUNT (AUTO) 151 K/uL (150-450); RED BLOOD CELL COUNT(AUTO) 4.22 MIL/uL (4.00-5.20); RED CELL DISTRIBUTION WIDTH 19.6 % (11.5-14.5); WHITE BLOOD COUNT (AUTO) 22.8 K/uL (4.5-11.0)
[2023-12-17 06:22] LABS: CALCIUM, TOTAL 9.4 mg/dL (8.8-10.5); CREATININE 1.84 mg/dL (0.60-1.30); POTASSIUM 4.8 mmol/L (3.5-5.1)
[2023-12-17 07:15] LABS: GLUCOMETER DEV NAME(LOC) ICU.S6; GLUCOSE,POINT OF CARE 248 MG/DL (70-110)
[2023-12-17 12:00] LABS: GLUCOMETER DEV NAME(LOC) ICUN.5; GLUCOSE,POINT OF CARE 263 MG/DL (70-110)
[2023-12-17 12:11] LABS: GLUCOMETER DEV NAME(LOC) ICU.S6; GLUCOSE,POINT OF CARE 289 MG/DL (70-110)
[2023-12-17 16:06] LABS: ABG A-A DIFF O2 386.5 mmHg (10-20.0); ABG BASE EXCESS -5.9 mmol/L (-2.0-3.0); ABG CARBOXYHEMOGLOBIN 0.5 % (0.5-1.5); ABG HCO3 19.6 mmol/L (21.0-28.0); ABG METHEMOGLOBIN 0.1 % (0.0-1.5); ABG OXYGEN SATURATION 89.4 % (94.0-98.0); ABG OXYHEMOGLOBIN 88.9 % (94.0-98.0); ABG PCO2 45 mmHg (32.0-45.0); ABG TOTAL HEMOGLOBIN 11.2 G/dL (12.0-16.0); ALLEN TEST, BLOOD GAS Positive; O2 DEVICE,BLOOD GAS VENTILATOR (ROOM AIR); PEEP,BG 8 cm H2O; PO2, ARTERIAL BG 62.4 mmHg (83.0-108.0); SITE, BLOOD GAS LFT RADIAL; SOURCE, BLOOD GAS ARTERIAL; TEMPERATURE, FAHRENHEIT, BG 100.1 FAHREN (96.0-98.6); VT, ABG 430 ml
[2023-12-17 16:07] LABS: SPONTANEOUS VT, BG 419 ml
[2023-12-17] MEDS: INSULIN LISPRO 100 UNITS/ML SQ PRN (17:26)
[2023-12-17 19:01] LABS: GLUCOMETER DEV NAME(LOC) ICU.S6; GLUCOSE,POINT OF CARE 277 MG/DL (70-110)
[2023-12-17 21:51] LABS: GLUCOMETER DEV NAME(LOC) ICU.S6; GLUCOSE,POINT OF CARE 228 MG/DL (70-110)
[2023-12-18] VITALS (30 sets, daily range): BP systolic 101–130; BP diastolic 49–57; PULSE 101–118; RESP 26–29; TEMP 98.9–100.2; O2SAT 84–97
[2023-12-18 05:43] LABS: BASOPHILS % (AUTO) 0.1 % (0.0-2.0); EOSINOPHILS % (AUTO) 5.4 % (1.0-6.0); HEMATOCRIT 32.4 % (36-46); HEMOGLOBIN 10.1 g/dL (12.0-16.0); LYMPHOCYTES # (AUTO) 0.9 K/uL (1.0-4.8); LYMPHOCYTES % (AUTO) 3.2 % (22.0-44.0); MEAN CORPUSCULAR HGB CONC 31.1 G/dL (31.0-37.0); MEAN CORPUSCULAR VOLUME 87 fL (80-100); MONOCYTES # (AUTO) 2.3 K/uL (0.1-1.0); MONOCYTES % (AUTO) 8.3 % (2.0-9.0); NEUTROPHILS # (AUTO) 23.6 K/uL (1.8-7.7); PLATELET COUNT (AUTO) 157 K/uL (150-450); RED BLOOD CELL COUNT(AUTO) 3.74 MIL/uL (4.00-5.20); RED CELL DISTRIBUTION WIDTH 19.4 % (11.5-14.5); WHITE BLOOD COUNT (AUTO) 28.4 K/uL (4.5-11.0)
[2023-12-18 06:06] LABS: BILIRUBIN,TOTAL 0.5 mg/dL (0.1-1.0); CREATININE 2.43 mg/dL (0.60-1.30); POTASSIUM 4.2 mmol/L (3.5-5.1)
[2023-12-18 08:06] LABS: GLUCOMETER DEV NAME(LOC) ICU.S6; GLUCOSE,POINT OF CARE 218 MG/DL (70-110)
[2023-12-18 12:05] LABS: GLUCOMETER DEV NAME(LOC) ICU.S6; GLUCOSE,POINT OF CARE 240 MG/DL (70-110)
[2023-12-18] MEDS ORDERED: INDIUM IN-111 OXYQUINOLINE/.5MCL ISOTOPE 1 EA INJ INJ ONE (15:20)
[2023-12-18] MEDS: SODIUM CHLORIDE 0.9% 1,000 ML IV ONE (17:17)
[2023-12-18 21:14] LABS: APPEARANCE,URINE TURBID (CLEAR); BILIRUBIN,URINE NEGATIVE (NEGATIVE); COLOR,URINE YELLOW (YELLOW); GLUCOSE, URINE (UA) NEGATIVE (NEGATIVE); KETONES,URINE NEGATIVE (NEGATIVE); LEUKOCYTE ESTERASE ,URINE LARGE (NEGATIVE); NITRATE,URINE NEGATIVE (NEGATIVE); OCCULT BLOOD,URINE SMALL (NEGATIVE); PROTEIN,URINE 100-200,SEE CONFIRM mg/dL (NEGATIVE); SPECIFIC GRAVITIY, URINE 1.027 (1.003-1.030)
[2023-12-18 21:20] LABS: GLUCOMETER DEV NAME(LOC) ICU.S6; GLUCOSE,POINT OF CARE 215 MG/DL (70-110)
[2023-12-18 21:32] LABS: SULFOSALICYLIC ACID,URINE 3+ (Negative)
[2023-12-18 21:33] LABS: BACTERIA,URINE Moderate /HPF (None Seen); SQUAMOUS EPITHELIAL CELL,UR Few /LPF (None Seen); WBC,URINE 26-50 /HPF (0-5)
[2023-12-19] VITALS (20 sets, daily range): BP systolic 104–128; BP diastolic 43–46; PULSE 100–123; RESP 24–33; TEMP 97.3–98.2; O2SAT 80–100
[2023-12-19 01:00] LABS: GLUCOMETER DEV NAME(LOC) ICUN.5; GLUCOSE,POINT OF CARE 206 MG/DL (70-110)
[2023-12-19 05:35] LABS: GLUCOMETER DEV NAME(LOC) ICUN.5; GLUCOSE,POINT OF CARE 206 MG/DL (70-110)
[2023-12-19 05:48] LABS: BASOPHILS % (AUTO) 0.1 % (0.0-2.0); EOSINOPHILS % (AUTO) 5.1 % (1.0-6.0); HEMOGLOBIN 9.8 g/dL (12.0-16.0); LYMPHOCYTES # (AUTO) 0.6 K/uL (1.0-4.8); LYMPHOCYTES % (AUTO) 2.2 % (22.0-44.0); MEAN CORPUSCULAR HEMOGLOBIN 27.4 pg (26.0-34.0); MEAN CORPUSCULAR HGB CONC 31.5 G/dL (31.0-37.0); MEAN CORPUSCULAR VOLUME 87 fL (80-100); MONOCYTES # (AUTO) 2.2 K/uL (0.1-1.0); MONOCYTES % (AUTO) 7.9 % (2.0-9.0); NEUTROPHILS # (AUTO) 23.4 K/uL (1.8-7.7); NEUTROPHILS % (AUTO) 84.7 % (40.0-70.0); PLATELET COUNT (AUTO) 178 K/uL (150-450); RED BLOOD CELL COUNT(AUTO) 3.56 MIL/uL (4.00-5.20); RED CELL DISTRIBUTION WIDTH 19.3 % (11.5-14.5); WHITE BLOOD COUNT (AUTO) 27.6 K/uL (4.5-11.0)
[2023-12-19 05:58] LABS: CALCIUM, TOTAL 8.2 mg/dL (8.8-10.5); CREATININE 2.82 mg/dL (0.60-1.30); POTASSIUM 4.6 mmol/L (3.5-5.1)
[2023-12-19 08:23] LABS: ABG BASE EXCESS -11.6 mmol/L (-2.0-3.0); ABG CARBOXYHEMOGLOBIN 0.2 % (0.5-1.5); ABG HCO3 15.3 mmol/L (21.0-28.0); ABG OXYGEN CONTENT 13.2 mL/dL (15.0-23.0); ABG OXYGEN SATURATION 87.6 % (94.0-98.0); ABG OXYHEMOGLOBIN 87.4 % (94.0-98.0); ABG PCO2 47 mmHg (32.0-45.0); ABG TOTAL HEMOGLOBIN 10.7 G/dL (12.0-16.0); SOURCE, BLOOD GAS ARTERIAL; TEMPERATURE, FAHRENHEIT, BG 97.4 FAHREN (96.0-98.6)
[2023-12-19 08:24] LABS: ABG PH 7.169 (7.350-7.450); ALLEN TEST, BLOOD GAS Positive; O2 DEVICE,BLOOD GAS VENTILATOR (ROOM AIR); PEEP,BG 5 cm H2O; SITE, BLOOD GAS LFT RADIAL; VT, ABG 430 ml
[2023-12-19 08:25] LABS: SPONTANEOUS VT, BG 510 ml
[2023-12-19] MEDS: SODIUM BICARBONATE [ADULT] 8.4% 50 MEQ/50 ML SYRINGE IVP ONE (08:45)
[2023-12-19] MEDS: MIDAZOLAM HCL 100 MG in SODIUM CHLORIDE 0.9% 180 ML IV PRN (10:40)
[2023-12-19] MEDS ORDERED: SODIUM CHLORIDE 0.9% 500 ML IV ONE (11:44)
[2023-12-19 12:45] LABS: GLUCOMETER DEV NAME(LOC) ICUN.5; GLUCOSE,POINT OF CARE 208 MG/DL (70-110)
[2023-12-19 14:01] LABS: GLUCOMETER DEV NAME(LOC) ICU.S6; GLUCOSE,POINT OF CARE 206 MG/DL (70-110)
== END 2023-12-19 17:06 | DRG 870 ==
LOC: EMS 14:15 → UNDOADMIN 17:35 → EDH 17:35 → ICU 11-07 10:20
PROVIDERS: ADMIT Internal Medicine; ATTEND Internal Medicine
PROC: 5A09357 Assistance with Respiratory Ventilation, Less than 24 Consecutive Hours, Continuous Positive Airway Pressure (ICD-10-PCS; 2023-11-04)
PROC: 5A1955Z Respiratory Ventilation, Greater than 96 Consecutive Hours (ICD-10-PCS; principal; 2023-11-05)
PROC: 0BH17EZ Insertion of Endotracheal Airway into Trachea, Via Natural or Artificial Opening (ICD-10-PCS; 2023-11-05)
PROC: 05HB33Z Insertion of Infusion Device into Right Basilic Vein, Percutaneous Approach (ICD-10-PCS; 2023-11-11)
PROC: B54MZZA Ultrasonography of Right Upper Extremity Veins, Guidance (ICD-10-PCS; 2023-11-11)
PROC: 03HY32Z Insertion of Monitoring Device into Upper Artery, Percutaneous Approach (ICD-10-PCS; 2023-11-19)
PROC: 5A1955Z Respiratory Ventilation, Greater than 96 Consecutive Hours (ICD-10-PCS; 2023-11-23)
PROC: 0BH17EZ Insertion of Endotracheal Airway into Trachea, Via Natural or Artificial Opening (ICD-10-PCS; 2023-11-23)
PROC: 5A0935A Assistance with Respiratory Ventilation, Less than 24 Consecutive Hours, High Flow/Velocity Cannula (ICD-10-PCS; 2023-11-23)
PROC: 0DH63UZ Insertion of Feeding Device into Stomach, Percutaneous Approach (ICD-10-PCS; 2023-12-02)
PROC: 0B9J8ZX Drainage of Left Lower Lung Lobe, Via Natural or Artificial Opening Endoscopic, Diagnostic (ICD-10-PCS; 2023-12-03)
PROC: 0B9L8ZX Drainage of Left Lung, Via Natural or Artificial Opening Endoscopic, Diagnostic (ICD-10-PCS; 2023-12-03)
PROC: 05HD33Z Insertion of Infusion Device into Right Cephalic Vein, Percutaneous Approach (ICD-10-PCS; 2023-12-13)
PROC: B54MZZA Ultrasonography of Right Upper Extremity Veins, Guidance (ICD-10-PCS; 2023-12-13)
DX: A41.1 Sepsis due to other specified staphylococcus (principal); J15.69 Pneumonia due to other Gram-negative bacteria; I50.33 Acute on chronic diastolic (congestive) heart failure; N17.0 Acute kidney failure with tubular necrosis; J18.9 Pneumonia, unspecified organism; J96.21 Acute and chronic respiratory failure with hypoxia; J96.22 Acute and chronic respiratory failure with hypercapnia; G93.41 Metabolic encephalopathy; I13.0 Hypertensive heart and chronic kidney disease with heart failure and stage 1 through stage 4 chronic kidney disease, or unspecified chronic kidney disease; D84.9 Immunodeficiency, unspecified; J98.11 Atelectasis; L03.115 Cellulitis of right lower limb; Z16.24 Resistance to multiple antibiotics; L03.116 Cellulitis of left lower limb; J44.0 Chronic obstructive pulmonary disease with (acute) lower respiratory infection; J44.1 Chronic obstructive pulmonary disease with (acute) exacerbation; E87.29 Other acidosis; E87.0 Hyperosmolality and hypernatremia; Z68.41 Body mass index [BMI] 40.0-44.9, adult; E44.0 Moderate protein-calorie malnutrition; L03.114 Cellulitis of left upper limb; E11.22 Type 2 diabetes mellitus with diabetic chronic kidney disease; I27.20 Pulmonary hypertension, unspecified; D64.9 Anemia, unspecified; B95.8 Unspecified staphylococcus as the cause of diseases classified elsewhere; B96.4 Proteus (mirabilis) (morganii) as the cause of diseases classified elsewhere; T38.0X5A Adverse effect of glucocorticoids and synthetic analogues, initial encounter; E83.42 Hypomagnesemia; E87.6 Hypokalemia; D69.6 Thrombocytopenia, unspecified; E66.01 Morbid (severe) obesity due to excess calories; E78.00 Pure hypercholesterolemia, unspecified; F17.200 Nicotine dependence, unspecified, uncomplicated; K29.70 Gastritis, unspecified, without bleeding; K80.20 Calculus of gallbladder without cholecystitis without obstruction; R13.10 Dysphagia, unspecified; Z22.322 Carrier or suspected carrier of Methicillin resistant Staphylococcus aureus; Z79.899 Other long term (current) drug therapy; G47.30 Sleep apnea, unspecified; Y92.89 Other specified places as the place of occurrence of the external cause; Y95 Nosocomial condition; N18.31 Chronic kidney disease, stage 3a
CPT/HCPCS: 0241U; 31624; 36245; 36569; 36600; 70450; 71045; 71250; 71275; 72125; 72128; 72131; 72192; 74150; 76770; 76937; 78580; 78806; 80048; 80053; 80202; 80307; 81001; 81002; 82550; 82570; 82805; 82962; 83605; 83735; 83880; 84100; 84132; 84145; 84300; 84484; 85007; 85025; 85027; 85610; 86631; 86632; 86738; 87015; 87040; 87070; 87077; 87081; 87086; 87101; 87186; 87205; 87206; 87220; 87252; 87324; 87449; 87481; 87804; 87899; 93005; 93306; 93970; 94002; 94003; 94640; 94660; 94668; 94669; 99291; A9540; A9547; C9113; G0238; J0171; J0360; J0461; J0690; J0696; J0878; J1644; J1815; J1940; J2060; J2185; J2250; J2704; J2919; J3010; J3370; J3475; J3480; J3490; J7030; J7040; J7050; J7060; Q9967; 36415-L1; 36415-TC; J7613

== ENCOUNTER 2024-04-01 11:46 | Emergency (ER) | payer MEDICARE, OTHER ==
[~2024-04-01] VITALS: Ht 162.6 cm; Wt 110.4 kg
[~2024-04-01 11:46] MED LIST changes: +BUDE0.2517 NEB; +CALC-1275 PO; +EMPA10TA3 PO; -INSLAN SQ; +INSU100V SQ; +INSU3INS3 SQ; +IPRA3AMP23 IH; -LEVO-72 PO; -LOSA-382 PO; +POTA-189 PO; +SEMA0.258 SQ; +TRAZ-257 PO
[2024-04-01 12:05] VITALS: PULSE 86; RESP 36; O2SAT 99
[2024-04-01 12:13] VITALS: TEMP 98.8
[2024-04-01 12:41] LABS: BASOPHILS % (AUTO) 0.3 % (0.0-2.0); EOSINOPHILS % (AUTO) 3.8 % (1.0-6.0); HEMOGLOBIN 7.8 g/dL (12.0-16.0); LYMPHOCYTES # (AUTO) 1.8 K/uL (1.0-4.8); LYMPHOCYTES % (AUTO) 19.8 % (22.0-44.0); MEAN CORPUSCULAR HEMOGLOBIN 30.4 pg (26.0-34.0); MEAN CORPUSCULAR HGB CONC 32.6 G/dL (31.0-37.0); MEAN CORPUSCULAR VOLUME 93 fL (80-100); MONOCYTES # (AUTO) 0.6 K/uL (0.1-1.0); NEUTROPHILS # (AUTO) 6.2 K/uL (1.8-7.7); NEUTROPHILS % (AUTO) 69.1 % (40.0-70.0); PLATELET COUNT (AUTO) 111 K/uL (150-450); RED BLOOD CELL COUNT(AUTO) 2.58 MIL/uL (4.00-5.20); RED CELL DISTRIBUTION WIDTH 17.9 % (11.5-14.5)
[2024-04-01 12:55] LABS: CALCIUM, TOTAL 9.2 mg/dL (8.8-10.5); CREATININE 2.55 mg/dL (0.60-1.30); POTASSIUM 4.3 mmol/L (3.5-5.1)
[2024-04-01 14:34] VITALS: BP 16/93; PULSE 75; RESP 13; O2SAT 100
[2024-04-01 19:56] LABS: GLUCOMETER DEV NAME(LOC) ER.7; GLUCOSE,POINT OF CARE 128 MG/DL (70-110)
== END 2024-04-01 14:41 | disposition home or self-care (01) ==
LOC: EMS 11:46
DX: D64.9 Anemia, unspecified (principal); J44.9 Chronic obstructive pulmonary disease, unspecified; E11.9 Type 2 diabetes mellitus without complications; I10 Essential (primary) hypertension; E78.00 Pure hypercholesterolemia, unspecified; F20.9 Schizophrenia, unspecified; Z79.4 Long term (current) use of insulin; Z79.51 Long term (current) use of inhaled steroids; Z79.899 Other long term (current) drug therapy
CPT/HCPCS: 80048; 82962; 85025; 94002; 99283